=== PATIENT | female | born 1955 | race Caucasian/White ===

== ENCOUNTER 2022-01-04 07:26 | Outpatient (CLI) | payer MEDICARE, SELFPAY ==
--- NOTE | 2022-01-04 09:26 | SUR.PREOP ---
PT TO IMAGING FOR WIRE LOC PER W/C
--- NOTE | 2022-01-04 13:20 | W.ANESCHARGE ---
Anesthesia Charges Start Date/Time Anesthesia Start Date: 01/04/22 Anesthesia Start Time: 08:11 Stop Date/Time Anesthesia Stop Date: 01/04/22 Anesthesia Stop Time: 09:00 Summary Emergency: No
--- NOTE | 2022-01-04 13:26 | W.ANESCHARGE ---
Anesthesia Charges Start Date/Time Anesthesia Start Date: 01/04/22 Anesthesia Start Time: 08:11 Stop Date/Time Anesthesia Stop Date: 01/04/22 Anesthesia Stop Time: 09:00 Summary Emergency: No
== END 2022-01-04 07:27 | disposition home or self-care (01) ==
LOC: OP CLINIC 07:28
PROVIDERS: PCP Family Medicine; Visit Provider Surgery
DX: Z12.11 Encounter for screening for malignant neoplasm of colon (principal); K63.89 Other specified diseases of intestine; Z98.0 Intestinal bypass and anastomosis status; R19.8 Other specified symptoms and signs involving the digestive system and abdomen; K22.89 Other specified disease of esophagus; K31.89 Other diseases of stomach and duodenum
CPT/HCPCS: 43239; 45380; 813; 88305; J2704; J3490

== ENCOUNTER 2022-01-31 07:24 | Inpatient (IN) | payer MEDICARE, SELFPAY ==
[2022-01-31] VITALS (22 sets, daily range): BP systolic 107–152; BP diastolic 52–82; PULSE 84–92; RESP 12–20; TEMP 36.2–36.8; O2SAT 89–100; BMI 31.7
[2022-01-31] MEDS: LACTATED RINGERS 1000 ML 1,000 ML 100 ML IV (07:00)
[2022-01-31] MEDS: ETHYL CHLORIDE 116 ML SPRAY 1 APPLIC TOPICAL (09:26)
[2022-01-31] MEDS: SODIUM CHLORIDE 0.9 % (FLUSH) 10 ML SYRINGE IVF (09:26)
--- NOTE | 2022-01-31 09:31 | PM.IMHP1 ---
Hospitalist- H&P: HPI History of Present Illness Time Seen by Provider: 09:00 Date Seen: 01/31/22 Chief complaint: Open Ileostomy Takedown Narrative: Ree Jiang is a 66 year old female seen for preop evaluation pending ileostomy takedown today. Patient had emergency surgery for diverticulitis with perforation and abscess on 08/14/2021. She was discharged 08/23/2021. She had an sigmoidectomy, appendectomy and loop ileostomy. Surgical findings included perforation of her sigmoid with peritonitis. Postoperatively she had issues with high output ileostomy and associated fluid electrolyte problems. She also had postop hypoxia which resolved. The cause of her hypoxia is uncertain. She did have consultation 2 months ago with a catheterization laboratory technician who diagnosed her with mild COPD and recommended she stop smoking. Spirometry done at that time showed an FVC of 87% of predicted and an FEV1 of 75% of predicted. Her DLCO was 87% of predicted. She reports that she has been well recently. She has had no respiratory illness. She is not using any inhalers for her COPD. She does report that she gets short of breath occasionally when she walks her dog four blocks but she has no chest pain. Review of Systems Narrative: She reports no recent illness. No cold, cough, sore throat, unusual dyspnea, chest pain. She reports she has some mild chronic abdominal tenderness since her surgery. This is unchanged. She has moderately high output from her ileostomy and has to drink lots of fluids to manage this. No change in the appearance of her ileostomy output. [facility] Medical History (Updated 01/31/22 @ 09:42 by Ivan Lawrence MD) Acute respiratory failure with hypoxia Alcohol dependence Chronic obstructive pulmonary disease Depression Diverticulitis of intestine with perforation and abscess Elevated liver function tests Excessive drinking of alcohol History of open sigmoidectomy (08/2021) Hypokalemia Leukocytosis Malignant neoplasm of right breast (04/07/15) Obstructive sleep apnea syndrome (2015) Osteopenia (06/2021) Tobacco dependence syndrome Surgical History History of appendectomy (08/11/21) History of arthroscopy of left knee (2004) History of arthroscopy of right knee (2006) History of bilateral mastectomy (06/2015) History of colonoscopy (08/13/20) History of hysterectomy (1990) Status post laparoscopic cholecystectomy (2016) Status post surgery involving ear Family History Mother Alzheimer's disease Heart disease Father Stroke Heart disease Unknown Crohn's disease Other Cervical cancer Social History Narrative: excessive consumption of ethanol- 6 pack/day exercises 5-6 times per week- garden, walks dog , 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[employer]), 3 kids tobacco abuse- 1 pack/day, 30 years Smoking Status: Current every day smoker What tobacco products do you use: cigarettes Smoking packs per day: 1 Smoking cigarettes per day: 20.0 Years smoked: 20 Smoking pack-years: 20.00 Second hand tobacco smoke exposure: Yes How often do you have a drink containing alcohol: 4 or more times a week How many standard drinks containing alcohol do you have on a typical day: 3 or 4 How often do you have six or more drinks on one occasion: Monthly AUDIT-C Alcohol total score: 7 Non-prescribed substance use: denies use Caffeine: Yes (3/day) service: No Meds Home Medications and Allergies Home Medications Medication Instructions Recorded Confirmed Type amlodipine 10 mg tablet 10 mg PO HS 01/27/22 01/31/22 History citalopram 10 mg tablet 10 mg PO HS 01/27/22 01/31/22 History gabapentin 300 mg capsule 300 mg PO BID 01/27/22 01/31/22 History Allergies Allergy/AdvReac Type Severity Reaction Status Date / Time oxycodone Allergy Severe Anaphylaxis, Verified 01/31/22 07:51 hives, throat swelling amoxicillin Allergy Intermediate N&V Verified 01/31/22 07:51 hydrocodone Allergy Mild Rash Verified 01/31/22 07:51 varenicline Allergy Mild aggression Verified 01/31/22 07:51 clavulanic acid Allergy Unknown Nausea Verified 01/31/22 07:51 Exam Narrative: Exam Narrative: She is alert and appears in no distress. Head is normal. Eyes are normal. Oropharynx with small airway. Otherwise normal. Neck is supple without mass or adenopathy. No stridor. Respirations are clear to auscultation. There is no wheezing, rales, rhonchi. No marked prolongation of expiratory phase. Good air exchange in all lung kraus. Cardiovascular: S1, S2, regular rate and rhythm. No murmur gallop or rub. Abdomen: Bowel sounds active. Abdomen is soft with mild diffuse tenderness. Right lower quadrant ileostomy draining a dark liquid stool. External genitalia normal. Extremities with intact pulses and sensation. She moves all 4 extremities well. No edema. No rash Const: Vital Signs, click to edit/add: Vital Signs - 24 hr 01/31/ 09:01 Temperature 98.2 F Pulse Rate 90 Respiratory Rate 16 Blood Pressure 126/82 Pulse Oximetry 97 Documenting provider has reviewed patient's vital signs: yes Assessment and Plan Assessment and plan (1) Ileostomy present: Status: Acute Assessment and Plan: Proceed to ileostomy takedown today. No further preoperative assessment needed. (2) Chronic obstructive pulmonary disease: Status: Acute Assessment and Plan: Monitor for postoperative exacerbation (3) Tobacco dependence syndrome: Status: Acute Assessment and Plan: Discussed and recommended smoking cessation. (4) Obstructive sleep apnea syndrome: Status: Acute Assessment and Plan: Patient is at risk for postoperative hypoxia with opioid use in the context of probable sleep apnea (5) Excessive drinking of alcohol: Status: Acute Assessment and Plan: Moderately heavy drinking in the context of abnormal liver enzymes. Patient reports no previous history of alcohol withdrawal. Plan Proceed to surgery without further evaluation.
[2022-01-31] MEDS: ERTAPENEM 1 GM inj IVPB (10:30)
[2022-01-31] MEDS: BUPIVACAINE 0.25% 30 ML 20 ML INJECTION (11:46)
[2022-01-31] MEDS: fentaNYL 100 MCG/2 ML inj 50 MCG IVP ×3 (11:59→12:23)
--- NOTE | 2022-01-31 12:05 | W.ANESCHARGE ---
Anesthesia Charges Start Date/Time Anesthesia Start Date: 01/31/22 Anesthesia Start Time: 10:11 Stop Date/Time Anesthesia Stop Date: 01/31/22 Anesthesia Stop Time: 12:00 Summary Emergency: No
--- NOTE | 2022-01-31 12:13 | W.ANESCHARGE ---
Anesthesia Charges Start Date/Time Anesthesia Start Date: 01/31/22 Anesthesia Start Time: 10:11 Stop Date/Time Anesthesia Stop Date: 01/31/22 Anesthesia Stop Time: 12:00 Summary Emergency: No
[2022-01-31] MEDS: HYDROmorphone 0.5 mg/0.5 ml inj IVP ×4 (12:20→22:43)
--- NOTE | 2022-01-31 12:56 | PM.GSPRC ---
Operative Note Date of procedure: 01/31/22 Type of Procedure: Ileostomy takedown Procedure Description: After discussing the risks and benefits of the procedure, the patient signed informed consent.? The operative site was marked and the patient was brought to the operating room and placed on the operating table in supine position.? Care was taken to pad the patient's pressure points.?? The patient was then intubated by anesthesia.?? The operative site was then prepped and draped in the usual sterile fashion.? A time-out was then performed. Prior to prepping, the ileostomy was sutured closed to prevent stool spillage during the procedure. The ileostomy was grasped with a Mely and the mucocutaneous junction was incised using the the cut function on the cautery. The subcutaneous fat was then entered and dissection was taken circumferentially. Using a mosquito, I carefully dissected the subcutaneous fat away from the bowel until both loops of the ileum were encountered. This was actually quite free and only adherent to the fascia laterally. There was another small knuckle of small bowel which had herniated through the stoma trephine. This was normal appearing and reduced. Once the ileum was freely dissected and there was sufficient length extracorporeally to create an anastomosis, I created mesenteric windows on healthy portion of the proximal and distal bowel. I then, using a blue load RUTH ANN stapler divided the stoma from the bowel proximally and distally. The mesentery was then divided using clamps and ties. The specimen was sent to pathology the small bowel ends were then brought together in a stay stitch was placed. Enterotomies were created just in front of the staple line. Each end of a blue load RUTH ANN stapler was then advanced into the enterotomies and a 70 mm anastomosis was then created on the anti mesenteric the stapler was removed and no bleeding was noted on the staple line. The common enterotomy was then closed with interrupted silk sutures in a Lembert fashion. A crotch stitch was placed. The anastomosis appeared widely patent. The mesenteric window was small, however 2 small stitches were placed to ensure that it would close. This was then reduced into the abdomen. A hernia sac which was present at the inferior aspect of the wound was removed with cautery. The fascia was then closed with running 1. PDS. 3-0 Vicryl was used to bury the knot from the stitch in the subcutaneous fat. A 4 0 Monocryl cerclage stitch was then placed around the skin to cinch it down approximately 30%. A wet to dry dressing was then applied. The patient was then woken and transported to the recovery area in stable condition. ? The patient tolerated the procedure well. Findings: Ileostomy with a small parastomal hernia Anesthesia: JOSIAH Surgeon: Geraldine Alberto MD Estimated blood loss (mL): 5 Condition: stable Disposition: PACU
[2022-01-31] MEDS: LACTATED RINGERS 1000 ML 1,000 ML 125 ML IV ×2 (13:11→20:54)
--- NOTE | 2022-01-31 18:40 | PC.NURSE ---
Pt. Alert and oriented, up to floor at 1250. Pt. denied any nausea or vomiting. Pain managed w/.5mg Dilaudid. Pain reported at 1435 and pt. tolerated well. Pt. tolerated ice chips and have been advanced to clear liquid diet per MD. Pt. has restricted extremity to RUE. Pt. on room air- PMH of JONE-PRN O2 ordered if needing support at HS. Pt. dangled, up in chair around 1800 tolerated well. Surgical dressing clean, dry, intact. Ice pack applied.
[2022-01-31] MEDS: CITALOPRAM HYDROBROMIDE 20 MG TABLET 10 MG PO (20:51)
[2022-01-31] MEDS: AMLODIPINE 10 MG TABLET PO (20:52)
[2022-01-31] MEDS: GABAPENTIN 300 MG CAPSULE PO (20:52)
[2022-02-01] VITALS (10 sets, daily range): BP systolic 102–126; BP diastolic 50–80; PULSE 89–96; RESP 16–20; TEMP 36.7–37.2; O2SAT 90–96
[2022-02-01] MEDS: LACTATED RINGERS 1000 ML 1,000 ML 125 ML IV (06:08)
--- NOTE | 2022-02-01 06:22 | PC.NURSE ---
SHIFT NOTE 19-: Pt pleasant and cooperative, A&O. Afebrile, oxygen saturations in the low 90's on room air, IS encouraged. Pt given PRN Dilaudid for pain with pt reporting relief. Active ice to abdomen. Bowel sounds are hypoactive. Denies passing flatus. Surgical dressing is C/D/I. Pt up SBA, tolerating well. Denies N/V, CP, and SOB.
--- NOTE | 2022-02-01 09:01 | PM.GSPN ---
Subjective Subjective Date Seen: 02/01/22 Patient reports: no new complaints, no flatus and no bowel movement Interval history: She is tolerating clears. No nausea. Pain is around the incision site. She states that she has been voiding a large amount of urine. No chest pain or shortness of breath. She would like to eat. Exam Narrative: Exam Narrative: General: No acute distress CV: Regular rate and rhythm Respiratory: Breathing nonlabored on room air Abdomen: Protuberant. Appropriately tender for the postoperative state. Wound without erythema. Const: Vital Signs, click to edit/add: Vital Signs - 24 hr 01/31/22 11:55 01/31/22 12:00 01/31/22 12:01 Temperature 97.6 F Pulse Rate 89 86 86 Pulse Rate [Right] Respiratory Rate 14 16 Blood Pressure 128/73 122/64 Blood Pressure [Le ft Arm] Pulse Oximetry 97 100 01/31/22 12:09 01/31/22 12:15 01/31/22 12:20 Temperature 97.6 F Pulse Rate 89 85 84 Pulse Rate [Right] Respiratory Rate 14 12 12 Blood Pressure 131/79 119/69 126/71 Blood Pressure [Le ft Arm] Pulse Oximetry 96 98 99 01/31/22 12:25 01/31/22 12:30 01/31/22 12:35 Temperature 97.4 F L Pulse Rate 87 86 87 Pulse Rate [Right] Respiratory Rate 12 12 14 Blood Pressure 123/73 110/71 110/73 Blood Pressure [Le ft Arm] Pulse Oximetry 99 99 98 01/31/22 12:40 01/31/22 12:45 01/31/22 13:00 Temperature 97.5 F L 97.3 F L Pulse Rate 86 89 Pulse Rate [Right] 89 Respiratory Rate 16 16 20 Blood Pressure 120/73 121/74 Blood Pressure [Le ft Arm] 126/79 Pulse Oximetry 99 95 89 01/31/22 13:15 01/31/22 13:25 01/31/22 13:30 Temperature 97.1 F L Pulse Rate 92 Pulse Rate [Right] 88 89 Respiratory Rate 20 20 20 Blood Pressure Blood Pressure [Le ft Arm] 115/77 152/81 H 125/74 Pulse Oximetry 89 89 01/31/22 14:15 01/31/22 14:45 01/31/22 15:00 Temperature 97.4 F L Pulse Rate Pulse Rate [Right] 91 91 88 Respiratory Rate 20 20 20 Blood Pressure Blood Pressure [Le ft Arm] 129/73 129/73 107/80 Pulse Oximetry 93 93 93 01/31/22 19:00 01/31/22 19:32 01/31/22 23:00 Temperature 97.8 F 98.1 F Pulse Rate Pulse Rate [Right] 92 92 Respiratory Rate 20 20 18 Blood Pressure Blood Pressure [Le ft Arm] 133/52 L 134/81 Pulse Oximetry 94 94 94 02/01/22 04:00 02/01/22 04:58 02/01/22 07:00 Temperature 98.5 F Pulse Rate 89 Pulse Rate [Right] 90 89 Respiratory Rate 20 20 Blood Pressure Blood Pressure [Le ft Arm] 126/80 Pulse Oximetry 92 02/01/22 08:00 Temperature 99.0 F Pulse Rate Pulse Rate [Right] 89 Respiratory Rate 20 Blood Pressure Blood Pressure [Le ft Arm] 112/68 Pulse Oximetry 91 Progress Note: A&P Assessment and plan (1) Ileostomy present: Status: Acute (2) Chronic obstructive pulmonary disease: Status: Acute (3) Tobacco dependence syndrome: Status: Acute (4) Obstructive sleep apnea syndrome: Status: Acute (5) Excessive drinking of alcohol: Status: Acute Plan Olesya is a 66-year-old female who is postop day 1 status post ileostomy takedown. She is doing well overall. We did advance her diet to full liquid, however I advised her to go slowly as until her bowels are moving normally she will have an ileus which will make her uncomfortable. She is doing well with her breathing and encourage ambulation as well as incentive spirometry. There was minimal blood loss at the time of surgery and therefore I did not recheck a hemoglobin today but we will start Lovenox for DVT prophylaxis. She is not exhibiting any signs or symptoms of alcohol withdrawal at this point. She will continue with inpatient care until she is passing flatus and has a bowel movement. RN to change dressing b.i.d.
[2022-02-01] MEDS: TRAMADOL HCL 50 MG TABLET PO (09:28)
[2022-02-01] MEDS: GABAPENTIN 300 MG CAPSULE PO ×2 (09:28→20:39)
[2022-02-01 09:36] LABS: Basophils Percent Auto 0.4 % (0.0-3.0); Hematocrit 34.6 % (33.0-51.0); Hemoglobin* 11.4 gm/dL (12.0-16.0); Immature Granulocytes Abs Auto 0.04 K/uL (0.00-0.30); Lymphocytes Percent Auto 9.7 % (20-44); Mean Corpuscular HGB Conc 33 gm/dL (32-36); Mean Corpuscular Hemoglobin 33 pg (26-34); Mean Corpuscular Volume 101 fL (80-100); Monocytes Percent Auto 9.2 % (0.0-11.0); Neutrophils Percent Auto 76.4 % (42.0-72.0); Platelet Count* 343 K/uL (140-440); RDW Coefficient of Variation % 13.2 % (11.5-15.5); Red Blood Count 3.42 m/uL (4.00-5.20)
[2022-02-01 09:46] LABS: Slide Review Reflex No
[2022-02-01 10:18] LABS: Chloride* 111 mmol/L (96-114)
[2022-02-01 10:19] LABS: Potassium* 3.9 mmol/L (3.6-5.1); Sodium* 137 mmol/L (135-149)
[2022-02-01 10:21] LABS: Creatinine* 1.4 mg/dL (0.5-1.5); Est. Creatinine Clearance* 28.01; Estimated Glomerular Filt Rate 41 ml/min
[2022-02-01 10:22] LABS: Blood Urea Nitrogen* 25 mg/dL (7-30); Calcium* 8.7 mg/dL (8.4-10.6); Carbon Dioxide* 21 mmol/L (20-32); Glucose* 112 mg/dL (60-115)
--- NOTE | 2022-02-01 13:36 | PM.IMPN1 ---
Progress Note: A&P Assessment and plan (1) Ileostomy present: Status: Acute Assessment and Plan: ?66-year-old female who is postop day 1 status post ileostomy takedown -pain control, diet, dvt ppx per surgery (2) Chronic obstructive pulmonary disease: Status: Acute (3) Tobacco dependence syndrome: Status: Acute (4) Obstructive sleep apnea syndrome: Status: Acute (5) Excessive drinking of alcohol: Status: Acute Subjective Date Seen: 02/01/22 Interval history: ?66-year-old female who is postop day 1 status post ileostomy takedown tolerating diet Denies chest pain denies nausea Denies vomiting Exam Narrative: Exam Narrative: Gen: no acute distress HEENT:NCAT EOMI MMM CV: RRR normal s1 s2 Lungs: CTAB Abd: soft, nt, nd Neuro: Alert, oriented Const: Vital Signs, click to edit/add: Vital Signs - 24 hr 01/31/22 14:15 01/31/22 14:45 01/31/22 15:00 Temperature 97.4 F L Pulse Rate Pulse Rate [Right] 91 91 88 Respiratory Rate 20 20 20 Blood Pressure [Le ft Arm] 129/73 129/73 107/80 Pulse Oximetry 93 93 93 01/31/22 19:00 01/31/22 19:32 01/31/22 23:00 Temperature 97.8 F 98.1 F Pulse Rate Pulse Rate [Right] 92 92 Respiratory Rate 20 20 18 Blood Pressure [Le ft Arm] 133/52 L 134/81 Pulse Oximetry 94 94 94 02/01/22 04:00 02/01/22 04:58 02/01/22 07:00 Temperature 98.5 F Pulse Rate 89 92 Pulse Rate [Right] 90 89 Respiratory Rate 20 20 Blood Pressure [Le ft Arm] 126/80 Pulse Oximetry 92 02/01/22 08:00 Temperature 99.0 F Pulse Rate Pulse Rate [Right] 89 Respiratory Rate 20 Blood Pressure [Le ft Arm] 112/68 Pulse Oximetry 91 Labs Labs: Laboratory Results - last 24 hr 02/01/22 02/01/22 09:17 09:17 WBC 12.60 H RBC 3.42 L Hgb 11.4 L Hct 34.6 MCV 101 H MCH 33 MCHC 33 RDW Coeff of Igor 13.2 Plt Count 343 Neut % (Auto) 76.4 H Lymph % (Auto) 9.7 L Alfalfa % (Auto) 9.2 Eos % (Auto) 4.0 Baso % (Auto) 0.4 Neut # (Auto) 9.60 H Lymph # (Auto) 1.20 Alfalfa # (Auto) 1.20 H Eos # (Auto) 0.50 Baso # (Auto) 0.10 Abs Immat Gran (auto) 0.04 Sodium 137 Potassium 3.9 Chloride 111 Carbon Dioxide 21 BUN 25 Creatinine 1.4 Estimated Creat Clear 28.01 Estimated GFR 41 Glucose 112 Calcium 8.7
--- NOTE | 2022-02-01 16:20 | PC.NURSE ---
Pt pleasant and cooperative. Alert and oriented x3. Afebrile, oxygen saturations in the low 90's on room air, IS encouraged. Pt.denies any N/V. Pt. reported no pain, states the pain is tolerable. Bowel sounds are active. Denies passing flatus. Surgical dressing changed wet to dry Kerlix and ABD at 0950. Surgical dressing is C/D/I. Pt. up SBA, tolerating well. Saline locked at 1000. Pt. advanced to liquid diet.
[2022-02-01] MEDS: CITALOPRAM HYDROBROMIDE 20 MG TABLET 10 MG PO (20:38)
[2022-02-01] MEDS: AMLODIPINE 10 MG TABLET PO (20:38)
[2022-02-01] MEDS: ENOXAPARIN 40 MG/0.4 ML INJ SUBCUT (20:39)
[2022-02-02] VITALS (8 sets, daily range): BP systolic 108–121; BP diastolic 64–79; PULSE 87–101; RESP 16–20; TEMP 36.2–37.2; O2SAT 92–98
[2022-02-02] MEDS: TRAMADOL HCL 50 MG TABLET PO ×2 (01:33→15:13)
--- NOTE | 2022-02-02 06:36 | PC.NURSE ---
Alert and oriented x4. Vitals stable. On rooom air. On tele ; normal sinus rhythm. Surgical pain and cramps managed with tramadol with good results. Wound cares done as per orders. No signs of infection noted. Denies concerns overnight
[2022-02-02] MEDS: GABAPENTIN 300 MG CAPSULE PO ×2 (10:00→21:00)
--- NOTE | 2022-02-02 13:10 | PM.GSPN ---
Subjective Subjective Date Seen: 02/02/22 Interval history: Olesya Is doing well today. She states she is passing flatus from below, however she does feel somewhat distended. She denies nausea. She would like to advance her diet. No chest pain or shortness of breath. No fevers. Exam Narrative: Exam Narrative: General: No acute distress CV: Regular rate and rhythm respiratory: Clear to auscultation bilaterally abdomen: Wound without erythema. Abdomen is somewhat distended but soft and minimally tender. Const: Vital Signs, click to edit/add: Vital Signs - 24 hr 02/01/22 15:00 02/01/22 16:00 02/01/22 20:00 Temperature 98.6 F 98.9 F Pulse Rate 89 Pulse Rate [Left] 96 Pulse Rate [Right] 90 90 96 Respiratory Rate 20 20 16 Blood Pressure [Le ft Arm] 102/50 L 111/76 Pulse Oximetry 91 90 02/01/22 22:49 02/01/22 23:35 02/02/22 04:00 Temperature 98.9 F 98.9 F Pulse Rate 89 Pulse Rate [Left] 94 92 96 Pulse Rate [Right] 94 92 96 Respiratory Rate 16 16 16 Blood Pressure [Le ft Arm] 118/75 112/74 Pulse Oximetry 90 92 02/02/22 07:00 02/02/22 08:00 Temperature 98.1 F Pulse Rate 94 Pulse Rate [Left] 90 Pulse Rate [Right] Respiratory Rate 16 Blood Pressure [Le ft Arm] 108/64 Pulse Oximetry 98 Progress Note: A&P Assessment and plan (1) Ileostomy present: Status: Acute (2) Chronic obstructive pulmonary disease: Status: Acute (3) Tobacco dependence syndrome: Status: Acute (4) Obstructive sleep apnea syndrome: Status: Acute (5) Excessive drinking of alcohol: Status: Acute Plan The patient is a 66-year-old female postop day 2 status post ileostomy takedown. She has some flatus, however is somewhat distended today and therefore I recommend she go slow with diet advancement. She is otherwise doing well and will remain inpatient until she is having full return of bowel function. Continue Lovenox for DVT prophylaxis. Appreciate hospitalist consult
--- NOTE | 2022-02-02 15:56 | PM.IMPN1 ---
Progress Note: A&P Assessment and plan (1) Chronic obstructive pulmonary disease: Status: Acute Plan 1) Ileostomy present: ?Status:?Acute ?Assessment and Plan: ?66-year-old female who is postop day status post ileostomy takedown -pain control, diet, dvt ppx per surgery (2) Chronic obstructive pulmonary disease: ?Status:?Acute (3) Tobacco dependence syndrome: ?Status:?Acute (4) Obstructive sleep apnea syndrome: ?Status:?Acute (5) Excessive drinking of alcohol: ?Status:?Acute Time Spent With Patient Total time spent: 15 Subjective Date Seen: 02/03/22 Interval history: tolerating diet post surgical pain controlled denies cp, nausea, vomiting; passing gas Exam Narrative: Exam Narrative: Gen: NAD HEENT: NCAT EOMI MMM CV: RRR normal s1 s2 lungs: CTAB Abd: Soft, nt,nd Const: Vital Signs, click to edit/add: Vital Signs - 24 hr 02/01/22 16:00 02/01/22 20:00 02/01/22 22:49 Temperature 98.6 F 98.9 F Pulse Rate 89 Pulse Rate [Left] 96 94 Pulse Rate [Right] 90 96 94 Respiratory Rate 20 16 16 Blood Pressure [Le ft Arm] 102/50 L 111/76 Pulse Oximetry 91 90 02/01/22 23:35 02/02/22 04:00 02/02/22 07:00 Temperature 98.9 F 98.9 F Pulse Rate 94 Pulse Rate [Left] 92 96 Pulse Rate [Right] 92 96 Respiratory Rate 16 16 Blood Pressure [Le ft Arm] 118/75 112/74 Pulse Oximetry 90 92 02/02/22 08:00 02/02/22 12:00 Temperature 98.1 F 98.1 F Pulse Rate Pulse Rate [Left] 90 96 Pulse Rate [Right] Respiratory Rate 16 20 Blood Pressure [Le ft Arm] 108/64 121/79 Pulse Oximetry 98 96 Labs Labs: Laboratory Results - last 24 hr 01/31/22 11:05 Surg PTH (Off-Site) See Scanned Report
--- NOTE | 2022-02-02 18:56 | PC.NURSE ---
shift [id number] pt this shift vitally stable. Dressing change performed, pt tolerated well. tissue pink, moist, and vascular. Moderate amount of serous fluid on old dressing. no signs of infection present. Pt encouraged to walk frequently to encourage BM and passage of gas.
[2022-02-02] MEDS: ENOXAPARIN 40 MG/0.4 ML INJ SUBCUT (20:59)
[2022-02-02] MEDS: CITALOPRAM HYDROBROMIDE 20 MG TABLET 10 MG PO (21:00)
[2022-02-02] MEDS: AMLODIPINE 10 MG TABLET PO (21:00)
--- NOTE | 2022-02-02 22:02 | PC.NURSE ---
VSS RA. Tele NSR. Denies pain. W-D Dressing change done 1cm or so tunneling at 2 and 5. Slight bloody drainage on old dressing. Bowel tones active, passing flatus, tolerating diet. Up ad elaine ind w/cares.
[2022-02-03] VITALS (8 sets, daily range): BP systolic 110–127; BP diastolic 78–86; PULSE 85–93; RESP 16–20; TEMP 36.6–37.1; O2SAT 93–95
--- NOTE | 2022-02-03 06:04 | PC.NURSE ---
23-07: Pleasant and cooperative. Calls appropriately. No c/o pain or nausea. Bowel sounds active, pt states she is still passing gas. VS WNL. LS clear. Tele = NSR. Dressing to abdomen CDI.
[2022-02-03] MEDS: GABAPENTIN 300 MG CAPSULE PO ×2 (08:23→20:28)
--- NOTE | 2022-02-03 10:01 | P.GSPN_ITS ---
Subjective Subjective Date Seen: 02/03/22 Interval history: Olesya is doing well today. No chest pain, no shortness of breath. No nausea or vomiting. She is passing flatus but has not had a bowel movement. She does feel that her abdomen is distended. She has been walking around the unit. She would like to shower today. Exam Const: Vital Signs, click to edit/add: Vital Signs - 24 hr 02/02/22 12:00 02/02/22 16:00 02/02/22 18:53 Temperature 98.1 F 98.5 F Pulse Rate 101 H Pulse Rate [Left] 96 89 Respiratory Rate 20 18 Blood Pressure [Le ft Arm] 121/79 121/77 Pulse Oximetry 96 93 02/02/22 20:00 02/02/22 23:00 02/03/22 03:00 Temperature 98.3 F 97.1 F L 97.8 F Pulse Rate 88 Pulse Rate [Left] 94 87 90 Respiratory Rate 16 16 16 Blood Pressure [Le ft Arm] 110/71 114/73 110/78 Pulse Oximetry 92 93 93 Documenting provider has reviewed patient's vital signs: yes Common dashawn ls: no apparent distress and oriented x3 Resp: Common normals: clear to auscultation bilaterally Auscultation: clear to auscultation bilaterally Cardio: Common normals: regular rate and regular rhythm Rate: regular rate Rhythm: regular rhythm GI: Other: Abdomen is distended. Minimally tender to palpation. Incision without eryt akua. Neuro: Common normals: oriented x3 Progress Note: A&P Assessment and plan (1) Chronic obstructive pulmonary disease: Status: Acute (2) Obstructive sleep apnea syndrome: Status: Acute (3) S/P small bowel resection: Status: Acute Plan Olesya is a 66-year-old female who is postop day 3 from ileostomy takedown. She is doing well overall but needs full return of bowel function as she is somewhat distended today as well as yesterday. I encouraged her to back off on her p.o. intake because at some point she may begin to feel nauseated. I encouraged her that usually bowel function starts returned on postop day 3. She does have some slight bowel sounds on the right. She is going to continue to ambulate. She will continue with b.i.d. dressing changes. She may shower. She is on Lovenox for DVT prophylaxis.
--- NOTE | 2022-02-03 13:34 | PC.NURSE ---
Pt up in halls and denies pain or nausea. Pt has BS x4 and passing gas, no BM since surgery. Dressing changed without pain medication and pt reports it is tolerable. Pt would be able to shower and then have dressing changed, do not spray water directly into wound.
--- NOTE | 2022-02-03 16:09 | PM.IMPN1 ---
Progress Note: A&P Assessment and plan (1) S/P small bowel resection: Status: Acute Assessment and Plan: Status post ileostomy takedown with small-bowel resection. Patient is doing great. We are waiting full return of her bowel function. Dr. Alberto is leading the care team. (2) H/O ileostomy: Problem details: Operative Note Date of procedure: 01/31/22 Type of Procedure: Ileostomy takedown Status: Acute (3) Chronic obstructive pulmonary disease: Status: Acute Assessment and Plan: Stable. (4) Obstructive sleep apnea syndrome: Status: Acute Assessment and Plan: Stable. Plan Generally speaking hospital medicine is happy to follow along. There is no new needs or increasing demand of our services. I suspect she will discharge tomorrow once she has a bowel Subjective Date Seen: 02/03/22 Interval history: Daily Progress Note - Hospital Medicine Day #: 4 Postop day #3 - ileostomy takedown CC: Improving every day. Still waiting for BM. OVERNIGHT UPDATES FROM STAFF & MED, LAB, IMAGING UPDATES Eunice continues to improve every day. She is eating a normal diet. She is passing flatus. She has yet to have a bowel movement. Review of Systems: See subjective Cardiac: No new chest pain/pressure/palpitations. Respiratory: no new dyspnea. GI: Minimal abdominal bloating and pain Objective: Vitals: see above Lungs: Clear. Cardiac: S1S2. Abdomen surgical wound is dry. Good bowel sounds. Disposition/Potential discharge - Likely to return to previous living situation. Total time is 25 minutes with greater than 50% spent in counseling and coordination of care. Exam Const: Vital Signs, click to edit/add: Vital Signs - 24 hr 02/02/22 18:53 02/02/22 20:00 02/02/22 23:00 Temperature 98.3 F 97.1 F L Pulse Rate 101 H 88 Pulse Rate [Left] 94 87 Pulse Rate [Right] Respiratory Rate 16 16 Blood Pressure [Le ft Arm] 110/71 114/73 Pulse Oximetry 92 93 02/03/22 03:00 02/03/22 10:30 02/03/22 10:33 Temperature 97.8 F 98.2 F Pulse Rate Pulse Rate [Left] 90 86 86 Pulse Rate [Right] 93 Respiratory Rate 16 18 18 Blood Pressure [Le ft Arm] 110/78 126/78 Pulse Oximetry 93 93 02/03/22 11:27 02/03/22 13:32 02/03/22 15:00 Temperature 98.0 F 98.0 F Pulse Rate 88 Pulse Rate [Left] 85 93 Pulse Rate [Right] 93 93 Respiratory Rate 16 18 Blood Pressure [Le ft Arm] 126/86 127/80 Pulse Oximetry 95 95
--- NOTE | 2022-02-03 19:28 | PC.NURSE ---
Shift Note: Pt up ambulating independently. Showered this evening and wet to dry dressing changed. Pt declined pain meds, rates pain 0-1/10. Tolerating regular diet, verbalizes flatus but no BM.
[2022-02-03] MEDS: ENOXAPARIN 40 MG/0.4 ML INJ SUBCUT (20:26)
[2022-02-03] MEDS: CITALOPRAM HYDROBROMIDE 20 MG TABLET 10 MG PO (20:27)
[2022-02-03] MEDS: AMLODIPINE 10 MG TABLET PO (20:28)
[2022-02-04 03:00] VITALS: BP 117/77; PULSE 90; RESP 20; TEMP 36.6; O2SAT 94
[2022-02-04] MEDS: TRAMADOL HCL 50 MG TABLET PO (05:40)
--- NOTE | 2022-02-04 06:21 | PC.NURSE ---
-: pt pleasant and cooperative. Indep in room and halls. Tolerating reg diet. 1x loose bloody/mucous stool.?Pt continuing to pass flatus frequently. At 0530 pt stated she was having occasional sharp pain in her abd, 5/10, Ultram given. Dressing to abd CDI. VS stable and WNL.
[2022-02-04 07:00] VITALS: BP 119/75; PULSE 90; RESP 16; TEMP 36.9; O2SAT 94
[2022-02-04] MEDS: GABAPENTIN 300 MG CAPSULE PO (09:34)
[2022-02-04 11:00] VITALS: BP 130/83; PULSE 87; RESP 24; TEMP 36.7; O2SAT 98
[2022-02-04] MEDS: ACETAMINOPHEN 325 MG TABLET 650 MG PO (11:09)
[2022-02-04 15:00] VITALS: BP 123/81; PULSE 85; TEMP 37; O2SAT 97
--- NOTE | 2022-02-04 15:11 | PM.DS1 ---
DS: Providers Provider Date Seen: 02/04/22 Date of admission: 01/31/22 07:24 Primary care physician: Conner Bautista MD Admitting Clinician: Geraldine Alberto MD Consults: Hospitalist Attending Physician on discharge: Geraldine Alberto MD DS: Diagnosis Discharge Diagnosis (1) S/P small bowel resection: Status: Acute (2) H/O ileostomy: Status: Acute Problem details: Operative Note Date of procedure: 01/31/22 Type of Procedure: Ileostomy takedown (3) Chronic obstructive pulmonary disease: Status: Acute (4) Obstructive sleep apnea syndrome: Status: Acute DS: Summary Hospital Course Hospital Course: Olesya is a 66-year-old female who underwent ileostomy takedown on 01/31/2022. Overall she did very well. She was deemed safe for discharge home on postop day 4 when she had full return of bowel function and was tolerating a regular diet. Time Spent with Patient Time attestation: Total time spent providing and/or coordinating discharge services: Time spent: Less than 30 minutes Exam Narrative: Exam Narrative: General: No acute distress CV: Regular rate and rhythm Respiratory: Clear to auscultation bilaterally Abdomen: Mildly distended but soft. Wound without erythema. Const: Vital Signs, click to edit/add: Vital Signs - 24 hr 02/03/22 19:00 02/03/22 23:00 02/04/22 03:00 Temperature 98.8 F 97.8 F 98 F Pulse Rate [Left] 92 87 90 Pulse Rate [Right] 93 Respiratory Rate 18 20 20 Blood Pressure [Le ft Arm] 119/78 120/85 117/77 Pulse Oximetry 95 94 94 02/04/22 07:00 02/04/22 11:00 Temperature 98.4 F 98.1 F Pulse Rate [Left] 90 87 Pulse Rate [Right] Respiratory Rate 16 24 Blood Pressure [Le ft Arm] 119/75 130/83 Pulse Oximetry 94 98 Discharge Plan Discharge Disposition: Home, Self-Care Date of Admission: 01/31/22 07:24 Primary Care Provider: Conner Bautista Condition: Stable Anticipated Discharge Date/Time: 02/04/22 14:00 Discharge Medications: New tramadol 50 mg Tablet 50 - 100 mg PO Q6H PRN (Reason: Pain) Qty: 7 0RF Continued citalopram 10 mg tablet 10 mg PO HS 0RF amlodipine 10 mg tablet 10 mg PO HS 0RF gabapentin 300 mg capsule 300 mg PO BID 0RF Discharge Orders: Discharge Order (Routine); Ordered 02/04/22 Ordered By: Geraldine Alberto Patient Education: Acute Wounds (GEN) Activity Restrictions/Additional Instructions: Change dressing daily with saline soaked gauze. Cover with a pad and tape to catch any drainage. OK to shower but avoid bathing, soaking or swimming until your wound is totally healed. Apply ice to the area as needed for swelling. It is also OK to use a heating pad if this provides more comfort to you. Pain control: You were prescribed a pain medication. As your pain improves, you can try taking acetaminophen instead of the prescribed pain pill. Take an [id number] stool softener while you are taking prescribed pain medications to help alleviate constipation. I recommend Senna and/or Colace. Take as directed on package. If you have not had a bowel movement in 3 days, try taking Miralax as directed on the package. All of these are available over the counter. Follow-up Follow up with Dr. Alberto in 2-3 weeks Please call if you are experiencing severe pain, nausea, vomiting, difficulty urinating, fever or have not had bowel movement in 4 days after surgery. Activity Level: No strenuous activity Activity Detail: No lifting more than 20 lb for 4 weeks from surgery. Discharge Diet: Regular Follow Up Appointments: Geraldine Alberto MD [Staff Physician] - Conner Bautista MD [Primary Care Provider] - Forms: [employer] Info Instructions
--- NOTE | 2022-02-04 16:45 | PC.NURSE ---
shift [id number] pt comfortable and cooperative. Ambulated halls independently. Able to pass 2 small stools, soft and bloody, 1 medium bloody stool, and 1 small stool no blood. Pt watched wound dressing change, taught clean technique and signs and symptoms of infection. Pt verbalized understanding and feels comfortable taking over dressing change at home. DC'd at 1600, discharge instructions given, questions answered. IV dc'd prior to discharge.
== END 2022-02-04 16:57 | disposition home or self-care (01) | DRG 331 ==
PROVIDERS: Hospitalist; Admitting Provider Surgery; PCP Family Medicine; Visit Provider Surgery
PROC: 0DBE0ZZ Excision of Large Intestine, Open Approach (ICD-10-PCS; CPT 44620; principal; 2022-01-31 08:50)
DX: Z43.2 Encounter for attention to ileostomy (principal); R09.02 Hypoxemia; J44.9 Chronic obstructive pulmonary disease, unspecified; F17.210 Nicotine dependence, cigarettes, uncomplicated; Z85.3 Personal history of malignant neoplasm of breast; G47.33 Obstructive sleep apnea (adult) (pediatric); F10.20 Alcohol dependence, uncomplicated
CPT/HCPCS: 00800; 00840; 36415; 80048; 85025; 88304; 94761; G0378; A9270; J1170; J1335; J1650; J2250; J2704; J3010; J3490; J7120

== ENCOUNTER 2022-02-23 13:21 | Outpatient (CLI) | payer MEDICARE, SELFPAY ==
[2022-02-23 11:21] LABS: C.Difficile Negative (Negative); CDIFFEPI 027 PRESUMPTIVE NEGATIVE (Negative)
== END 2022-02-23 13:22 | disposition home or self-care (01) ==
PROVIDERS: PCP Family Medicine; Visit Provider Surgery
DX: R19.7 Diarrhea, unspecified (principal)
CPT/HCPCS: 87045; 87046; 87427; 87493

== ENCOUNTER 2022-07-22 10:01 | Outpatient (RCR) | payer MEDICARE, SELFPAY | END 2023-01-18 23:59 | disposition home or self-care (01) | LOC: CCIC 10:01 | PROVIDERS: PCP Family Medicine; Visit Provider Nurse Practitioner Family | DX: C50.911 Malignant neoplasm of unspecified site of right female breast (principal); Z17.0 Estrogen receptor positive status [ER+] | CPT/HCPCS: 99212; 99214 ==

== ENCOUNTER 2022-08-22 06:28 | Day surgery (SDC) | payer MEDICARE, SELFPAY ==
[2022-08-22 06:41] VITALS: BP 153/95; PULSE 89; RESP 20; TEMP 36.6; O2SAT 97; BMI 32.1
--- NOTE | 2022-08-22 06:43 | SUR.PREOP ---
SAME DAY SURGERY LOCAL INJECTION SITE VERIFICATION WAS PERFORMED BY SURGEON/PA AND PATIENT PRIOR TO LOCAL ANESTHETIC BEING INJECTED TO OPERATIVE SITE.
[2022-08-22] MEDS: ETHYL CHLORIDE 1 APPLICATION 1 APPLIC TOPICAL (06:55)
[2022-08-22] MEDS: BUPIVACAINE 0.5% 30 ML INJECTION (06:55)
[2022-08-22 07:19] VITALS: BP 154/82; PULSE 82; RESP 16; O2SAT 99
[2022-08-22 07:25] VITALS: BP 151/82; PULSE 79; RESP 16; O2SAT 98
[2022-08-22 07:30] VITALS: BP 138/76; PULSE 76; RESP 14; O2SAT 99
[2022-08-22 07:35] VITALS: BP 140/81; PULSE 73; RESP 12
--- NOTE | 2022-08-22 07:35 | P.ORPRC_ITS ---
Procedure Note Date of procedure: 08/22/22 Procedure: PREOPERATIVE DIAGNOSIS: 1. Left ring finger flexor tenosynovitis - trigger finger POSTOPERATIVE DIAGNOSIS: 1. Left ring finger flexor tenosynovitis - trigger finger PROCEDURE: 1. Left ring finger flexor tendon sheath open release (A1 shelbie) SURGEON: Yuri Mendoza MD. HOME APPLIANCE INSTALLER: YVON Moreno ANESTHESIA: Local anesthetic 6ml via 50:50 mixture of 1% Lidocaine with epi and 0.5% marcaine plain EBL: 2ml IMPLANTS: None TOURNIQUET: None COMPLICATIONS: None evident INDICATIONS: The patient is a pleasant 66-year-old female who has experienced left ring finger catching/triggering for number of months. It has progressively gotten worse. Given the failure of nonoperative management, and how this affects daily life, surgery was recommended. DESCRIPTION OF PROCEDURE: Following a thorough discussion of risks, benefits, and alternatives consent was obtained and the operative digit(s) was marked. The patient was brought to the operating room and placed supine on the operating table. Local anesthesia induction was undertaken in preop holding. No antibiotics were administered as this was planned to be a local case only. Proper time-out was performed identifying proper patient, site, and procedure. The operative extremity was prepped and draped in the appropriate sterile fashion using ChloraPrep. A incision was made on the palmar surface of the hand overlying the MCP joint region of the appropriate digit(s) respecting the palmar creases being cautious not to cross these perpendicularly. Sharp incision through the skin, and blunt dissection through subcutaneous tissue allowing protection of crossing neurologic structures. The A1 shelbie was visualized directly. It was incised sharply with a 15 blade. It was released completely from its distal to proximal extent under direct visualization. The tendon was inspected and found to be mildly striated consistent with some friction. Otherwise, it was intact. The tendon was removed out of the wound, and further inspected. The patient was asked to manually flex and extend the digits and showed no further catching. The catching which was visualized after tourniquet inflation, was no longer evident with reproduction of a manual fist and relaxation. Closure was performed with 4-O nylon in interrupted fashion. Soft dressings were applied, and the patient was transferred to the recovery room in stable condition. PLAN: 1. Encourage elevation of the operative extremity. 2. Range of motion and icing of the fingers and hand/wrist as tolerated/needed. 3. Ibuprofen/acetaminophen and/or tramadol as needed for pain control. 4. Follow up with PA visit in 12-16 days for wound check and suture removal.
[2022-08-22 07:43] VITALS: BP 134/85; PULSE 84; RESP 16; TEMP 36.8; O2SAT 96
== END 2022-08-22 07:57 | disposition home or self-care (01) ==
LOC: OR 06:30
PROVIDERS: PCP Family Medicine; Visit Provider Orthopaedic Surgery Sports Medicine
PROC: (CPT 26055; principal; 2022-08-22 07:30)
DX: M65.342 Trigger finger, left ring finger (principal); M65.842 Other synovitis and tenosynovitis, left hand
CPT/HCPCS: 26055; J3490

== ENCOUNTER 2022-12-21 11:57 | Outpatient (CLI) | payer MEDICARE, SELFPAY ==
--- NOTE | 2022-12-21 13:00 | CRLHL7_ITS ---
For Patients: As a result of the Century Cures Act, medical imaging exams and procedure reports are released immediately into your electronic medical record. You may view this report before your referring provider. If you have questions, please contact your health care provider. INDICATION: Checking her ventral hernia. TECHNIQUE: CT abdomen and pelvis acquired with 83 cc Isovue 370 IV contrast. COMPARISON: October 19, 2021. FINDINGS: Lower chest: Scattered atelectasis. Liver: Mild hepatic steatosis. No suspicious masses. Gallbladder and bile ducts: Cholecystectomy with reservoir effect. Pancreas: Unremarkable. No mass or inflammation. Spleen: Unremarkable. Normal in size. No masses. Adrenal glands: Tiny right adrenal nodule Kidneys: Unremarkable. No suspicious masses, stones, or hydronephrosis. GI tract: Postsurgical changes of partial colectomy. No bowel obstruction. Appendix not definitely seen. Vasculature: Abdominal aorta is normal in caliber. Mesenteric arteries are patent. Lymph nodes: No lymphadenopathy. Peritoneum/Abdominal Wall: Moderate fat containing umbilical hernia. Additional small fat containing supraumbilical hernia. Prior right ileostomy abdominal scar. No sign of mass or infiltration. No free air or significant free fluid. Pelvis: Hysterectomy. Bones: Unremarkable for age. IMPRESSION: Moderate fat containing umbilical hernia. Additional small fat containing supraumbilical hernia. No bowel containing hernia or bowel obstruction. Otherwise, no acute intra-abdominal/pelvic abnormality. Please note that all CT scans at this facility use dose modulation, iterative reconstruction, and/or weight-based dosing when appropriate to reduce radiation dose to as low as reasonably achievable. Dictated by David Kaur MD @ 12/21/2022 2:16:16 PM (Electronically Signed)
== END 2022-12-21 11:58 | disposition home or self-care (01) ==
LOC: CT 11:57
PROVIDERS: PCP Family Medicine; Visit Provider Family Medicine
DX: K43.9 Ventral hernia without obstruction or gangrene (principal); R10.9 Unspecified abdominal pain
CPT/HCPCS: 74177; 80053; Q9967

== ENCOUNTER 2023-01-11 15:05 | Emergency (ER) | payer MEDICARE, SELFPAY ==
[2023-01-11] VITALS (21 sets, daily range): BP systolic 147–163; BP diastolic 91–110; PULSE 77–97; RESP 22; TEMP 36.6; O2SAT 91–96; BMI 32.7
--- NOTE | 2023-01-11 16:06 | CRLHL7_ITS ---
For Patients: As a result of the Cures Act, medical imaging exams and procedure reports are released immediately into your electronic medical record. You may view this report before your referring provider. If you have questions, please contact your health care provider. INDICATION: Abdominal pain. TECHNIQUE: CT abdomen and pelvis acquired with 83 cc Isovue 370 IV contrast. COMPARISON: 12/21/2022. FINDINGS: Lower chest: Unremarkable. Liver: Mild hepatic steatosis. Subcentimeter hypodense focus in the medial left hepatic lobe is too small to accurately characterize but unchanged and likely benign. Gallbladder and bile ducts: Mildly prominent bile ducts, likely secondary to post cholecystectomy state. Spleen: Unremarkable. Normal in size. No masses. Adrenal glands: Stable right adrenal nodule. Left adrenal gland is unremarkable. Pancreas: Unremarkable. No mass or inflammation. Kidneys: Unremarkable. No suspicious masses, stones, or hydronephrosis. GI tract: Postsurgical changes of partial colectomy. No evidence of bowel obstruction. Appendix not visualized. Lymph nodes: No lymphadenopathy. Vasculature: Scattered atherosclerotic calcifications. Omentum/Peritoneum/Abdominal Wall: Fat containing paraumbilical and supraumbilical hernias, unchanged. No free air or significant free fluid. Pelvis: Status post hysterectomy. Bones: Unremarkable for age. IMPRESSION: No acute abdominal or pelvic abnormalities. No significant interval change since prior study. Please note that all CT scans at this facility use dose modulation, iterative reconstruction, and/or weight-based dosing when appropriate to reduce radiation dose to as low as reasonably achievable. Dictated by Yrn Avila MD @ 01/11/2023 6:24:38 PM (Electronically Signed)
--- NOTE | 2023-01-11 16:08 | ED_ITS ---
HPI - Abdominal Pain General Chief Complaint: Abdominal Pain Stated Complaint: Abdominal pain Time Seen by Provider: 01/11/23 15:52 History of Present Illness HPI narrative: This 67-year-old female comes in with upper epigastric and right-sided abdominal pain. She states that she has had pain for several months but it has worsened recently. She reports some nausea but no vomiting or diarrhea. She states that she feels bloated. She rates her pain at 5/10 in severity currently. She states that she typically begins to sleep at night by laying on her right side but is unable to do so because of pain. She has had an ileostomy in the past with a take down and now has a umbilical hernia. Related Data Previous Rx's Medication Instructions Recorded gabapentin 300 mg capsule 300 mg PO TID #90 caps 06/13/22 citalopram 10 mg tablet 10 mg PO QHS #90 tabs 07/12/22 amlodipine 10 mg tablet 10 mg PO HS #90 tabs 10/12/22 methylprednisolone 4 mg tablets in See Rx Instructions PO .COMPLEX 01/11/23 a dose pack (Medrol (Derrell)) #21 ea Allergies Allergy/AdvReac Type Severity Reaction Status Date / Time oxycodone Allergy Severe Anaphylaxis, Verified 01/11/23 17:35 hives, throat swelling amoxicillin Allergy Intermediate N&V Verified 01/11/23 17:35 hydrocodone Allergy Mild Rash Verified 01/11/23 17:35 varenicline Allergy Mild aggression Verified 01/11/23 17:35 clavulanic acid Allergy Unknown Nausea Verified 01/11/23 17:35 tramadol AdvReac severe Verified 01/11/23 17:35 itching Review of Systems Status of ROS Reports: 10 or more systems reviewed and unremarkable except as noted in History and below Narrative Constitutional: No fevers, no weight gain or loss. Eyes: No discharge. No vision changes. HENT: No congestion, no sore throat, no ear pain. Cardiovascular: No chest pain, no palpitations. Respiratory: No shortness of breath, no wheezes, no cough. Gastrointestinal: Abdominal pain. Nausea but no vomiting or diarrhea. Genitourinary: No dysuria, no hematuria. Musculoskeletal: Normal range of motion. Skin: No rashes, no pruritis. Neurological: No dizziness, weakness, sensory change, speech change. Endo/Heme/Allergies: No bruising or bleeding. No polydipsia. Pysch: no suicidality, no anxiety, no insomnia. All other systems reviewed and are negative. 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 - Monoarthritis, not elsewhere classified, unspecified site (ICD-10) Peripheral neuropathy ?G62.9 - Polyneuropathy, unspecified (ICD-10) Excessive drinking of alcohol ?F10.10 - Alcohol abuse, uncomplicated (ICD-10) Tobacco dependence syndrome ?F17.200 - Nicotine dependence, unspecified, uncomplicated (ICD-10) Osteopenia (06/2021) ?M85.80 - Other specified disorders of bone density and structure, unspecified site (ICD-10) Obstructive sleep apnea syndrome (2016) ?G47.33 - Obstructive sleep apnea (adult) (pediatric) (ICD-10) Malignant neoplasm of right breast (04/07/15) ?C50.911 - Malignant neoplasm of unspecified site of right female breast (ICD-10) Leukocytosis ?D72.829 - Elevated white blood cell count, unspecified (ICD-10) Ileostomy present (08/2021) ?Z93.2 - Ileostomy status (ICD-10) Hypokalemia ?E87.6 - Hypokalemia (ICD-10) History of open sigmoidectomy (08/2021) ?Z98.890 - Other specified postprocedural states (ICD-10) ?Z90.49 - Acquired absence of other specified parts of digestive tract (ICD- 10) Elevated liver function tests ?R79.89 - Other specified abnormal findings of blood chemistry (ICD-10) Diverticulitis of intestine with perforation and abscess ?K57.80 - Diverticulitis of intestine, part unspecified, with perforation and abscess without bleeding (ICD-10) Depression ?F32.A - Depression, unspecified (ICD-10) Chronic obstructive pulmonary disease ?J44.9 - Chronic obstructive pulmonary disease, unspecified (ICD-10) Alcohol dependence ?F10.20 - Alcohol dependence, uncomplicated (ICD-10) Acute respiratory failure with hypoxia ?J96.01 - Acute respiratory failure with hypoxia (ICD-10) Surgical History (Updated 09/08/22 @ 12:52 by Jamal Verma PA-C) S/P trigger finger release (08/22/22) ?Z98.890 - Other specified postprocedural states (ICD-10) S/P left knee arthroscopy ?Z98.890 - Other specified postprocedural states (ICD-10) S/P right knee arthroscopy (11/14/06) ?Z98.890 - Other specified postprocedural states (ICD-10) H/O ileostomy ?Z98.890 - Other specified postprocedural states (ICD-10) Status post surgery involving ear ?Z98.890 - Other specified postprocedural states (ICD-10) Status post laparoscopic cholecystectomy (2015) ?Z90.49 - Acquired absence of other specified parts of digestive tract (ICD- 10) History of hysterectomy (1990) ?Z90.710 - Acquired absence of both cervix and uterus (ICD-10) History of colonoscopy (08/13/20) ?Z98.890 - Other specified postprocedural states (ICD-10) History of bilateral mastectomy (06/2015) ?Z90.13 - Acquired absence of bilateral breasts and nipples (ICD-10) History of arthroscopy of right knee (08/07/07) ?Z98.890 - Other specified postprocedural states (ICD-10) History of arthroscopy of left knee (10/12/17) ?Z98.890 - Other specified postprocedural states (ICD-10) History of appendectomy (08/11/21) ?Z90.49 - Acquired absence of other specified parts of digestive tract (ICD- 10) Family History Mother Alzheimer's disease Heart disease Father Stroke Heart disease Unknown Crohn's disease Other Cervical cancer Social History (Reviewed 09/02/22 @ 09:31 by Azul Pizano ~ [facility], [facility]) Narrative: excessive consumption of ethanol- 6 pack/day exercises 5-6 times per week- garden, walks dog , 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[employer]), 3 kids tobacco abuse- 1 pack/day, 30 years Smoking Status: Current every day smoker What tobacco products do you use: cigarettes Smoking packs per day: 1 Smoking cigarettes per day: 20.0 Years smoked: 20 Smoking pack-years: 20.00 Second hand tobacco smoke exposure: Yes How often do you have a drink containing alcohol: 4 or more times a week How many standard drinks containing alcohol do you have on a typical day: 3 or 4 How often do you have six or more drinks on one occasion: Monthly AUDIT-C Alcohol total score: 7 Non-prescribed substance use: denies use Caffeine: Yes (3/day) Little interest or pleasure in doing things: more than half the days Feeling down, depressed, or hopeless: more than half the days service: No Exam Narrative: Exam Narrative: Constitutional: Well-developed, well-nourished, no acute distress. HEENT: Normocephalic, atraumatic. Neck: Normal range of motion. Nontender. Supple. Heart: Regular. No murmurs. Normal rate. Intact distal pulses. Lungs: Clear to auscultation. No chest discomfort. No wheezes, rhonchi, or rales. Abdomen: Normal bowel sounds. Diffuse tenderness in the upper and right abdomen. Mild rebound tenderness is present. Genitalia: Deferred. Back: No midline tenderness. Normal range of motion. Extremities: Normal range of motion. No injury. Skin: Intact. No rash. Warm. No erythema or pallor. Neurologic: No altered sensation. No weakness. Alert and oriented. Psychiatric: No suicidality. No anxiety or depression. No insomnia. Nursing notes and vitals signs are reviewed. Const: Vital Signs, click to edit/add: Vital Signs - 24 hr 01/11/23 15:17 01/11/23 15:35 01/11/23 15:45 Temperature 97.8 F Pulse Rate 81 80 Pulse Rate [Pulse Oximeter] 86 Respiratory Rate 22 Blood Pressure Blood Pressure [Le ft Upper Arm] 163/110 H Pulse Oximetry 94 94 94 Oxygen Delivery Me thod Room Air 01/11/23 16:00 01/11/23 16:01 01/11/23 16:15 Temperature Pulse Rate 80 81 77 Pulse Rate [Pulse Oximeter] Respiratory Rate Blood Pressure 154/94 H Blood Pressure [Le ft Upper Arm] Pulse Oximetry 94 96 94 Oxygen Delivery Me thod 01/11/23 16:30 01/11/23 16:32 01/11/23 16:45 Temperature Pulse Rate 79 79 78 Pulse Rate [Pulse Oximeter] Respiratory Rate Blood Pressure 147/94 H Blood Pressure [Le ft Upper Arm] Pulse Oximetry 94 93 92 Oxygen Delivery Me thod 01/11/23 17:00 01/11/23 17:02 01/11/23 17:03 Temperature Pulse Rate 79 84 82 Pulse Rate [Pulse Oximeter] Respiratory Rate Blood Pressure 153/91 H Blood Pressure [Le ft Upper Arm] Pulse Oximetry 93 94 93 Oxygen Delivery Me thod 01/11/23 17:20 01/11/23 17:30 01/11/23 17:31 Temperature Pulse Rate 97 78 79 Pulse Rate [Pulse Oximeter] Respiratory Rate Blood Pressure 151/91 H Blood Pressure [Le ft Upper Arm] Pulse Oximetry 91 94 94 Oxygen Delivery Me thod 01/11/23 17:45 01/11/23 18:00 01/11/23 18:02 Temperature Pulse Rate 80 79 84 Pulse Rate [Pulse Oximeter] Respiratory Rate Blood Pressure 151/95 H Blood Pressure [Le ft Upper Arm] Pulse Oximetry 94 94 94 Oxygen Delivery Me thod 01/11/23 18:15 01/11/23 18:30 01/11/23 18:32 Temperature Pulse Rate 81 78 82 Pulse Rate [Pulse Oximeter] Respiratory Rate Blood Pressure 153/94 H Blood Pressure [Le ft Upper Arm] Pulse Oximetry 95 94 95 Oxygen Delivery Me thod Course Vital Signs Vital signs: Initial Vital Signs Temperature 97.8 F 01/11/23 15:17 Temperature Source Temporal Artery Scan 01/11/23 15:17 Pulse Rate 86 01/11/23 15:17 Pulse Rhythm Regular 01/11/23 15:17 Respiratory Rate 01/11/23 15:17 Blood Pressure 163/110 H 01/11/23 15:17 Blood Pressure Mean 127 H 01/11/23 15:17 Blood Pressure Position Supine 01/11/23 15:17 Pulse Oximetry 94 01/11/23 15:17 Oxygen Delivery Method Room Air 01/11/23 15:17 Vital Signs Temperature 97.8 F 01/11/23 15:17 Pulse Rate 86 01/11/23 15:17 Respiratory Rate 22 01/11/23 15:17 Blood Pressure 163/110 H 01/11/23 15:17 Pulse Oximetry 94 01/11/23 15:17 Oxygen Delivery Method Room Air 01/11/23 15:17 Temperature 97.8 F 01/11/23 15:17 Pulse Rate 82 01/11/23 18:32 Respiratory Rate 22 01/11/23 15:17 Blood Pressure 153/94 H 01/11/23 18:32 Pulse Oximetry 95 01/11/23 18:32 Oxygen Delivery Method Room Air 01/11/23 15:17 MDM - Abdominal Pain MDM Narrative Medical decision making narrative: This patient comes in reporting abdominal pain that is been rather persistent over the past several months. She has had a few surgeries to her abdomen and does have umbilical and abdominal hernias. She states that the pain is sometimes relieved by a straightening out and relaxing. It could be that this is related to her surgeries or hernia symptoms. An IV was established and labs returned with normal results. Also CT imaging of the abdomen and pelvis returns with no acute findings. I advised the patient to follow-up with her surgeon in clinic for further evaluation and consideration how to treat her persistent abdominal pain. She did receive a prescription for Medrol Dosepak in hopes that an anti-inflammatory treatment may bring some relief. Lab Data Labs: Lab Results 01/11/23 Range/Units 16:00 WBC 9.28 (4.50-11.00) K/uL RBC 4.27 (4.00-5.20) m/uL Hgb 14.4 (12.0-16.0) gm/dL Hct 42.5 (33.0-51.0) % MCV 100 (80-100) fL MCH 34 (26-34) pg MCHC 34 (32-36) gm/dL RDW Coeff of Igor 12.5 (11.5-15.5) % Plt Count 370 (140-440) K/uL Neut % (Auto) 65.0 (42.0-72.0) % Lymph % (Auto) 20.5 (20-44) % Morrill % (Auto) 9.5 (0.0-11.0) % Eos % (Auto) 4.2 (0.0-7.0) % Baso % (Auto) 0.6 (0.0-3.0) % Neut # (Auto) 6.03 (1.7-7.0) K/uL Lymph # (Auto) 1.90 (0.90-2.90) K/uL Morrill # (Auto) 0.90 (0.00-0.90) K/UL Eos # (Auto) 0.39 (0.00-0.50) K/uL Baso # (Auto) 0.06 (0.00-0.30) K/uL Sodium 142 (135-149) mmol/L Potassium 3.8 (3.6-5.1) mmol/L Chloride 108 (96-114) mmol/L Carbon Dioxide 25 (20-32) mmol/L BUN 14 (7-30) mg/dL Creatinine 1.0 (0.5-1.5) mg/dL Estimated Creat Clear 38.68 Estimated GFR 61 ml/min Glucose 103 (60-115) mg/dL Calcium 9.6 (8.4-10.6) mg/dL Total Bilirubin 0.8 (0.1-1.5) mg/dL Direct Bilirubin 0.2 (0.0-0.5) mg/dL AST 35 (12-35) U/L ALT 39 H (4-35) U/L Alkaline Phosphatase 80 (40-150) U/L Total Protein 7.5 (6.0-8.3) g/dL Albumin 4.7 (3.3-5.0) g/dL Lipase 99 (23-300) U/L Discharge Plan Discharge Clinical Impression: Abdominal pain Patient Disposition: Home, Self-Care Condition: Stable Additional Instructions: Continue current plans. Take medication as prescribed. Follow up with clinic for further evaluation and treatment. Return if worsening. Prescriptions: New methylprednisolone [Medrol (Derrell)] 4 mg tablets,dose pack See Rx Instructions .ROUTE .COMPLEX Qty: 21 0RF Rx Instructions: orally per package directions No Action gabapentin 300 mg capsule 300 mg PO TID Qty: 90 5RF citalopram 10 mg tablet 10 mg PO QHS Qty: 90 1RF amlodipine 10 mg tablet 10 mg PO HS Qty: 90 1RF Follow Up/Referrals: Lino Scales MD [Primary Care Provider] - Stand Alone Forms: [facility] Info Instructions
[2023-01-11 16:18] LABS: Basophils Absolute Auto 0.06 K/uL (0.00-0.30); Basophils Percent Auto 0.6 % (0.0-3.0); Eosinophils Absolute Auto 0.39 K/uL (0.00-0.50); Eosinophils Percent Auto 4.2 % (0.0-7.0); Hematocrit 42.5 % (33.0-51.0); Hemoglobin* 14.4 gm/dL (12.0-16.0); Immature Granulocytes Abs Auto 0.02 K/uL (0.00-0.30); Immature Granulocytes Pct Auto 0.2 %; Lymphocytes Percent Auto 20.5 % (20-44); Mean Corpuscular HGB Conc 34 gm/dL (32-36); Mean Corpuscular Hemoglobin 34 pg (26-34); Mean Corpuscular Volume 100 fL (80-100); Monocytes Percent Auto 9.5 % (0.0-11.0); Neutrophils Absolute Auto 6.03 K/uL (1.7-7.0); Platelet Count* 370 K/uL (140-440); RDW Coefficient of Variation % 12.5 % (11.5-15.5); Red Blood Count 4.27 m/uL (4.00-5.20); Slide Review Reflex No; White Blood Count* 9.28 K/uL (4.50-11.00)
[2023-01-11 16:28] LABS: Chloride* 108 mmol/L (96-114); Sodium* 142 mmol/L (135-149)
[2023-01-11 16:29] LABS: Albumin* 4.7 g/dL (3.3-5.0); Potassium* 3.8 mmol/L (3.6-5.1)
[2023-01-11 16:31] LABS: Carbon Dioxide* 25 mmol/L (20-32); Est. Creatinine Clearance* 38.68; Estimated Glomerular Filt Rate 61 ml/min
[2023-01-11 16:32] LABS: Alkaline Phosphatase* 80 U/L (40-150); Aspartate Amino Transferase* 35 U/L (12-35); Bilirubin Direct* 0.2 mg/dL (0.0-0.5); Bilirubin Total* 0.8 mg/dL (0.1-1.5); Blood Urea Nitrogen* 14 mg/dL (7-30); Calcium* 9.6 mg/dL (8.4-10.6); Glucose* 103 mg/dL (60-115); Total Protein* 7.5 g/dL (6.0-8.3)
[2023-01-11 16:33] LABS: Alanine Aminotransferase* 39 U/L (4-35); Lipase* 99 U/L (23-300)
[2023-01-11] MEDS: 0.9 % SODIUM CHLORIDE 500 ML 500 ML IV (17:33)
== END 2023-01-11 19:11 | disposition home or self-care (01) ==
PROVIDERS: Emergency Provider Emergency Medicine Emergency Medical Services; PCP Family Medicine
DX: R10.9 Unspecified abdominal pain (principal)
CPT/HCPCS: 36415; 74177; 80048; 80076; 83690; 85025; 99284; J7120; Q9967

== ENCOUNTER 2023-01-31 07:43 | Outpatient (CLI) | payer MEDICARE, SELFPAY ==
[2023-01-31] MEDS: SODIUM CHLORIDE 0.9 % (FLUSH) 10 ML SYRINGE IVF (09:05)
[2023-01-31] MEDS: REGADENOSON 0.4 MG/5 ML SYRINGE IVP (09:05)
[2023-01-31 09:38] VITALS: BP 133/84; PULSE 85
--- NOTE | 2023-01-31 13:21 | W.PM.STED ---
Stress Test Note Date Date of test: 01/31/23 Providers Referring provider: Lino Scales Primary care provider: Lino Scales Stress test physician: Kevyn Dominguez Stress Test Note Stress test ordered: Lexiscan Indication for test: Dyspnea Stress test medicine: Lexiscan Results discussion: Patient is a very nice 59-year-old female presents for the above test after review of the cardiac stress test medical history, the risks benefits, she would like to proceed pretest EKG shows normal sinus rhythm, with a rate of 73, ventricular, blood pressure 143 on 87. Standard infusion of Lexiscan is done. Over the 5 minute. Her maximum heart rate was 105, maximum blood pressure 167/108. She was really asymptomatic with the infusion, no chest pain no shortness of breath or other anginal equivalents were noted, she had no dysrhythmias, there is no ST wave changes notable on review of her EKG portion. Impression: Negative electrographic portion of Lexiscan Follow up suggested: Await nuclear images to be read by Cardiology and nuclear Medicine, clinical correlation with these will be needed,. Patient will follow-up with the primary care, and left this testing facility in good condition
== END 2023-01-31 07:44 | disposition home or self-care (01) ==
LOC: STRESS 07:44
PROVIDERS: PCP Family Medicine; Visit Provider Family Medicine
DX: R06.09 Other forms of dyspnea (principal)
CPT/HCPCS: 78452; 93016; 93017; A9500; J2785

== ENCOUNTER 2023-02-06 13:33 | Emergency (ER) | payer MEDICARE, SELFPAY ==
[2023-02-06 13:41] VITALS: BP 139/108; PULSE 83; RESP 18; TEMP 36.8; O2SAT 95; BMI 27.5
--- NOTE | 2023-02-06 13:55 | CRLHL7_ITS ---
For Patients: As a result of the Century Cures Act, medical imaging exams and procedure reports are released immediately into your electronic medical record. You may view this report before your referring provider. If you have questions, please contact your health care provider. INDICATION: Abdominal pain, weight loss last month. TECHNIQUE: CT of the abdomen and pelvis with 81 cc Isovue 370 IV contrast. Coronal and sagittal reconstructions. COMPARISON: CT of the abdomen and pelvis 01/11/2023. FINDINGS: Mild hepatic steatosis. Tiny hypodensity in the left hepatic lobe is too small to characterize but likely benign (series 2, image 24). Cholecystectomy. Stable dilation of the common bile duct likely related to post cholecystectomy state. The spleen and pancreas are negative. Stable right adrenal nodule and nonspecific thickening of the left adrenal gland. Hepatic and portal veins appear patent. Symmetric enhancement of the kidneys. No hydronephrosis or ureteral dilation. No obstructing urinary calculi identified. The bladder is unremarkable. Hysterectomy. No adnexal mass. No small bowel dilation. There appears to be mild diffuse small bowel wall thickening which could represent a nonspecific enteritis. Small bowel anastomosis in the right abdomen. Postoperative changes of the sigmoid colon. Appendectomy. No intraperitoneal free air or fluid. No lymphadenopathy. Aortic vascular calcifications. Scarring in the right anterior abdominal wall. Moderate-sized fat containing umbilical hernia. Small fat containing supraumbilical ventral hernia. Mild degenerative changes of the spine. Stable 2 mm noncalcified pulmonary nodule in the lateral right lower lobe (series 3, image 7). The lung bases are otherwise clear. Partially visualized bilateral breast implants. IMPRESSION: 1. Mild diffuse small bowel wall thickening suggesting a nonspecific enteritis. 2. Mild hepatic steatosis. 3. No other acute findings in the abdomen or pelvis. Please note that all CT scans at this facility use dose modulation, iterative reconstruction, and/or weight-based dosing when appropriate to reduce radiation dose to as low as reasonably achievable. Dictated by Marilee Barbosa MD @ 02/06/2023 4:20:20 PM (Electronically Signed)
--- NOTE | 2023-02-06 14:13 | ED.GENADULT ---
HPI - General Adult General Date Seen: 02/06/23 Chief complaint: Abdominal Pain Stated complaint: Abdominal pain, numbness throughout body Time Seen by Provider: 02/06/23 13:42 Source: patient and family Mode of arrival: ambulatory Limitations: no limitations History of Present Illness HPI narrative: Patient is a 67-year-old woman who presents for evaluation of abdominal pain which has been present for a month. She says it is across her upper abdomen, is there quite a bit of the time but sometimes is gone. Worsened by eating and especially alcohol. She says she would like to drink beer every day but as soon as she has a beer her pain gets worse. She has not had significant nausea or vomiting, occasional diarrhea nonbloody stools. No constipation. No urinary symptoms. She has a history of diverticulitis status post resection, ostomy and then take down. She is not on any kind of proton pump inhibitor and is strongly resistant to the idea that her symptoms might be related to gastritis or peptic ulcer disease. She says she has an appointment tomorrow with Dr. Alberto for her hernias. She notes a 5 lb weight loss in the past 2 weeks. No skin or eye changes. No fevers. She is status post cholecystectomy and appendectomy. She does smoke, drinks regularly. Related Data Previous Rx's Medication Instructions Recorded gabapentin 300 mg capsule 300 mg PO TID #90 caps 06/13/22 citalopram 10 mg tablet 10 mg PO QHS #90 tabs 07/12/22 amlodipine 10 mg tablet 10 mg PO HS #90 tabs 10/12/22 albuterol sulfate 90 mcg/actuation 2 puff inhalation Q4-6H PRN 01/23/23 aerosol inhaler shortness of breath or wheezing #8.5 grams Allergies Allergy/AdvReac Type Severity Reaction Status Date / Time oxycodone Allergy Severe Anaphylaxis, Verified 02/06/23 14:33 hives, throat swelling amoxicillin Allergy Intermediate N&V Verified 02/06/23 14:33 hydrocodone Allergy Mild Rash Verified 02/06/23 14:33 varenicline Allergy Mild aggression Verified 02/06/23 14:33 clavulanic acid Allergy Unknown Nausea Verified 02/06/23 14:33 tramadol AdvReac severe Verified 02/06/23 14:33 itching Review of Systems Status of ROS: Reports: 10 or more systems reviewed and unremarkable except as noted in History and below [facility] Medical History 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 - Monoarthritis, not elsewhere classified, unspecified site (ICD-10) Peripheral neuropathy ?G62.9 - Polyneuropathy, unspecified (ICD-10) Excessive drinking of alcohol ?F10.10 - Alcohol abuse, uncomplicated (ICD-10) Tobacco dependence syndrome ?F17.200 - Nicotine dependence, unspecified, uncomplicated (ICD-10) Osteopenia (06/2021) ?M85.80 - Other specified disorders of bone density and structure, unspecified site (ICD-10) Obstructive sleep apnea syndrome (2016) ?G47.33 - Obstructive sleep apnea (adult) (pediatric) (ICD-10) Malignant neoplasm of right breast (04/07/15) ?C50.911 - Malignant neoplasm of unspecified site of right female breast (ICD-10) Leukocytosis ?D72.829 - Elevated white blood cell count, unspecified (ICD-10) Ileostomy present (08/2021) ?Z93.2 - Ileostomy status (ICD-10) Hypokalemia ?E87.6 - Hypokalemia (ICD-10) History of open sigmoidectomy (08/2021) ?Z98.890 - Other specified postprocedural states (ICD-10) ?Z90.49 - Acquired absence of other specified parts of digestive tract (ICD-10) Elevated liver function tests ?R79.89 - Other specified abnormal findings of blood chemistry (ICD-10) Diverticulitis of intestine with perforation and abscess ?K57.80 - Diverticulitis of intestine, part unspecified, with perforation and abscess without bleeding (ICD-10) Depression ?F32.A - Depression, unspecified (ICD-10) Chronic obstructive pulmonary disease ?J44.9 - Chronic obstructive pulmonary disease, unspecified (ICD-10) Alcohol dependence ?F10.20 - Alcohol dependence, uncomplicated (ICD-10) Acute respiratory failure with hypoxia ?J96.01 - Acute respiratory failure with hypoxia (ICD-10) Surgical History S/P trigger finger release (08/22/22) ?Z98.890 - Other specified postprocedural states (ICD-10) S/P left knee arthroscopy ?Z98.890 - Other specified postprocedural states (ICD-10) S/P right knee arthroscopy (11/14/06) ?Z98.890 - Other specified postprocedural states (ICD-10) H/O ileostomy ?Z98.890 - Other specified postprocedural states (ICD-10) Status post surgery involving ear ?Z98.890 - Other specified postprocedural states (ICD-10) Status post laparoscopic cholecystectomy (2015) ?Z90.49 - Acquired absence of other specified parts of digestive tract (ICD-10) History of hysterectomy (1990) ?Z90.710 - Acquired absence of both cervix and uterus (ICD-10) History of colonoscopy (08/13/20) ?Z98.890 - Other specified postprocedural states (ICD-10) History of bilateral mastectomy (06/2015) ?Z90.13 - Acquired absence of bilateral breasts and nipples (ICD-10) History of arthroscopy of right knee (08/07/07) ?Z98.890 - Other specified postprocedural states (ICD-10) History of arthroscopy of left knee (10/12/17) ?Z98.890 - Other specified postprocedural states (ICD-10) History of appendectomy (08/11/21) ?Z90.49 - Acquired absence of other specified parts of digestive tract (ICD-10) Family History Mother Alzheimers disease Heart disease Father Stroke Heart disease Unknown Crohn's disease Other Cervical cancer Social History Narrative: excessive consumption of ethanol- 6 pack/day exercises 5-6 times per week- garden, walks dog , 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[employer]), 3 kids tobacco abuse- 1 pack/day, 30 years Smoking Status: Current some day smoker What tobacco products do you use: cigarettes Smoking packs per day: 1 Smoking cigarettes per day: 20.0 Years smoked: 20 Smoking pack-years: 20.00 Second hand tobacco smoke exposure: Yes How often do you have a drink containing alcohol: 4 or more times a week How many standard drinks containing alcohol do you have on a typical day: 3 or 4 How often do you have six or more drinks on one occasion: Monthly AUDIT-C Alcohol total score: 7 Non-prescribed substance use: denies use Caffeine: Yes (3/day) Little interest or pleasure in doing things: several days Feeling down, depressed, or hopeless: several days service: No Exam Narrative: Exam Narrative: Vital signs as noted above. In general, an alert, nontoxic woman. She looks comfortable. Head: Normocephalic, atraumatic. Eyes: Pupils are equal reactive. Extraocular movements are full. Conjunctivae are normal. ENT: Mucous membranes are moist. Throat is normal. Neck: Supple without lymphadenopathy. Heart: Regular rate and rhythm. No murmur or rub. Lungs: Clear bilaterally. No increased work of breathing, crackles or wheezes. Abdomen: Soft, mild diffuse upper abdominal tenderness without rebound guarding or rigidity. Obese. Extremities: Well perfused. No edema. No calf tenderness. Pulses intact. Neurologic: Patient is alert and oriented to person and place. Speech is fluent. Face is symmetric. Moves all extremities equally. Affect: Normal. Skin: Warm and dry. Well perfused. Const: Vital Signs, click to edit/add: Vital Signs - 24 hr 02/06/23 13:41 02/06/23 16:58 Temperature 98.2 F Pulse Rate [Femora l] 83 87 Respiratory Rate 18 20 Blood Pressure [Le ft Upper Arm] 139/108 H 150/98 H Pulse Oximetry 95 94 Oxygen Delivery Me thod Room Air Documenting provider has reviewed patient's vital signs: yes Course Course Hospital Course: Routine labs are pending, given persistence of pain and concerns with weight loss will get a CT scan to rule out more ominous causes of abdominal pain and weight loss. Discussed with her if we do not find anything I would suggest a proton pump inhibitor just as something to try. Diagnostic considerations include pancreatitis, gastritis, peptic ulcer disease, atypical angina, colitis, diverticulitis, among others. Workup here is fairly unrevealing. CT scan is read by Radiology as showing mild small bowel thickening, possible enteritis. I discussed this with the patient, it certainly may be the cause of her diarrhea but with 1 month of abdominal pain I am a little less suspicious of this being directly related as a cause for abdominal pain. Labs are unremarkable. White blood cell count is 11, hemoglobin normal. Metabolic panel, CRP are normal. LFTs show scant elevations in AST and ALT but otherwise normal. Lipase is 214. Troponin is 0. EKG by my review showed normal sinus rhythm, ventricular rate of 82. Some T-wave flattening throughout but no acute ST segment changes. She has an appointment with Dr. Alberto tomorrow she says to discuss her hernias and I think it is certainly reasonable to keep that appointment, but I have recommended that she make a follow-up appointment with primary care to discuss the abdominal pain. I did ask her to do a trial of omeprazole for a couple of weeks to see if that provides any relief. Certainly minimize alcohol. Return at any time for acute severe pain, vomiting, bloody stools, fever or other changes. Vital Signs Vital signs: Initial Vital Signs Temperature 98.2 F 02/06/23 13:41 Temperature Source Temporal Artery Scan 02/06/23 13:41 Pulse Rate 83 02/06/23 13:41 Pulse Rhythm Regular 02/06/23 13:41 Respiratory Rate 18 02/06/23 13:41 Blood Pressure 139/108 H 02/06/23 13:41 Blood Pressure Mean 118 H 02/06/23 13:41 Blood Pressure Position Supine 02/06/23 13:41 Pulse Oximetry 95 02/06/23 13:41 Oxygen Delivery Method Room Air 02/06/23 13:41 Vital Signs Temperature 98.2 F 02/06/23 13:41 Pulse Rate 83 02/06/23 13:41 Respiratory Rate 18 02/06/23 13:41 Blood Pressure 139/108 H 02/06/23 13:41 Pulse Oximetry 95 02/06/23 13:41 Oxygen Delivery Method Room Air 02/06/23 13:41 Temperature 98.2 F 02/06/23 13:41 Pulse Rate 87 02/06/23 16:58 Respiratory Rate 20 02/06/23 16:58 Blood Pressure 150/98 H 02/06/23 16:58 Pulse Oximetry 94 02/06/23 16:58 Oxygen Delivery Method Room Air 02/06/23 13:41 Medical Decision Making Lab Data Labs: Lab Results 02/06/23 02/06/23 Range/Units 14:22 14:28 WBC 11.02 H (4.50-11.00) K/uL RBC 4.36 (4.00-5.20) m/uL Hgb 14.6 (12.0-16.0) gm/dL Hct 43.3 (33.0-51.0) % MCV 99 (80-100) fL MCH 34 (26-34) pg MCHC 34 (32-36) gm/dL RDW Coeff of Igor 11.8 (11.5-15.5) % Plt Count 360 (140-440) K/uL Neut % (Auto) 73.1 H (42.0-72.0) % Lymph % (Auto) 16.6 L (20-44) % [place] % (Auto) 7.2 (0.0-11.0) % Eos % (Auto) 2.2 (0.0-7.0) % Baso % (Auto) 0.8 (0.0-3.0) % Neut # (Auto) 8.10 H (1.7-7.0) K/uL Lymph # (Auto) 1.80 (0.90-2.90) K/uL [place] # (Auto) 0.80 (0.00-0.90) K/UL Eos # (Auto) 0.20 (0.00-0.50) K/uL Baso # (Auto) 0.10 (0.00-0.30) K/uL Abs Immat Gran (auto) 0.00 (0.00-0.30) K/uL Imm/Tot Granulo (auto) 0.1 % Sodium 140 (135-149) mmol/L Potassium 3.7 (3.6-5.1) mmol/L Chloride 107 (96-114) mmol/L Carbon Dioxide 25 (20-32) mmol/L BUN 15 (7-30) mg/dL Creatinine 1.0 (0.5-1.5) mg/dL Estimated Creat Clear 48.45 Estimated GFR 61 ml/min Glucose 94 (60-115) mg/dL Calcium 9.8 (8.4-10.6) mg/dL Total Bilirubin 1.0 (0.1-1.5) mg/dL Direct Bilirubin 0.1 (0.0-0.5) mg/dL AST 40 H (12-35) U/L ALT 41 H (4-35) U/L Alkaline Phosphatase 87 (40-150) U/L C-Reactive Protein < 0.5 L (0.5-1.0) mg/dL Total Protein 7.8 (6.0-8.3) g/dL Albumin 4.8 (3.3-5.0) g/dL Lipase 214 (23-300) U/L POC Troponin I 0.00 L (0.01-0.04) ng/ml Discharge Plan Discharge Clinical Impression: Abdominal pain Patient Disposition: Home, Self-Care Condition: Stable Instructions: Abdominal Pain (ED) Additional Instructions: Follow-up with Dr. Alberto tomorrow as planned regarding here hernias. I would recommend primary care follow-up as well for abdominal pain. Your CT scan today shows possible mild nonspecific enteritis, but given that your symptoms have been ongoing for month I am not certain that is directly related. I would recommend a 2 week trial of omeprazole, 40 mg daily. You can purchase this over the counter. Your labs are normal aside from very mild elevations of your liver enzymes. Prescriptions: No Action gabapentin 300 mg capsule 300 mg PO TID Qty: 90 5RF albuterol sulfate 90 mcg/actuation HFA aerosol inhaler 2 puff inhalation Q4-6H PRN (Reason: shortness of breath or wheezing) Qty: 8.5 1RF citalopram 10 mg tablet 10 mg PO QHS Qty: 90 1RF amlodipine 10 mg tablet 10 mg PO HS Qty: 90 1RF Follow Up/Referrals: Lino Scales MD [Primary Care Provider] - Stand Alone Forms: [employer] Info Instructions
[2023-02-06 14:40] LABS: Basophils Percent Auto 0.8 % (0.0-3.0); Eosinophils Percent Auto 2.2 % (0.0-7.0); Hematocrit 43.3 % (33.0-51.0); Hemoglobin* 14.6 gm/dL (12.0-16.0); Immature Granulocytes Pct Auto 0.1 %; Lymphocytes Percent Auto 16.6 % (20-44); Mean Corpuscular HGB Conc 34 gm/dL (32-36); Mean Corpuscular Hemoglobin 34 pg (26-34); Mean Corpuscular Volume 99 fL (80-100); Monocytes Percent Auto 7.2 % (0.0-11.0); Neutrophils Percent Auto 73.1 % (42.0-72.0); Platelet Count* 360 K/uL (140-440); RDW Coefficient of Variation % 11.8 % (11.5-15.5); Red Blood Count 4.36 m/uL (4.00-5.20); White Blood Count* 11.02 K/uL (4.50-11.00)
[2023-02-06 14:46] LABS: Slide Review Reflex No
[2023-02-06 14:58] LABS: Albumin* 4.8 g/dL (3.3-5.0); Chloride* 107 mmol/L (96-114); Sodium* 140 mmol/L (135-149)
[2023-02-06 14:59] LABS: Potassium* 3.7 mmol/L (3.6-5.1)
[2023-02-06 15:00] LABS: Est. Creatinine Clearance* 48.45; Estimated Glomerular Filt Rate 61 ml/min
[2023-02-06 15:01] LABS: Alkaline Phosphatase* 87 U/L (40-150); Aspartate Amino Transferase* 40 U/L (12-35); Bilirubin Direct* 0.1 mg/dL (0.0-0.5); Blood Urea Nitrogen* 15 mg/dL (7-30); Carbon Dioxide* 25 mmol/L (20-32); Glucose* 94 mg/dL (60-115); Lipase* 214 U/L (23-300)
[2023-02-06 15:02] LABS: Alanine Aminotransferase* 41 U/L (4-35); Calcium* 9.8 mg/dL (8.4-10.6)
[2023-02-06 15:12] LABS: C Reactive Protein* < 0.5 mg/dL (0.5-1.0)
[2023-02-06 15:18] LABS: Total Protein* 7.8 g/dL (6.0-8.3)
[2023-02-06 16:58] VITALS: BP 150/98; PULSE 87; RESP 20; O2SAT 94
== END 2023-02-06 16:59 | disposition home or self-care (01) ==
PROVIDERS: Emergency Provider Emergency Medicine; PCP Family Medicine
DX: R10.9 Unspecified abdominal pain (principal)
CPT/HCPCS: 36415; 74177; 80048; 80076; 81001; 83605; 83690; 84484; 85025; 86140; 93005; 99284; Q9967

== ENCOUNTER 2023-02-08 12:40 | Outpatient (CLI) | payer MEDICARE, SELFPAY | END 2023-02-08 12:41 | disposition home or self-care (01) | LOC: NFLDREF 02-09 07:47 | PROVIDERS: PCP Family Medicine; Referring Provider Family Medicine; Visit Provider Surgery | DX: R10.13 Epigastric pain (principal) | CPT/HCPCS: 87338 ==

== ENCOUNTER 2023-04-07 08:53 | Outpatient (CLI) | payer MEDICARE, SELFPAY | END 2023-04-07 08:54 | disposition home or self-care (01) | LOC: NFLDREF 04-12 06:45 | PROVIDERS: PCP Family Medicine; Referring Provider Family Medicine; Visit Provider Family Medicine | DX: E78.5 Hyperlipidemia, unspecified (principal) | CPT/HCPCS: 80053; 80061 ==

== ENCOUNTER 2023-07-13 13:32 | Outpatient (RCR) | payer MEDICARE, SELFPAY | END 2024-01-09 23:59 | disposition home or self-care (01) | LOC: CCIC 13:32 | PROVIDERS: PCP Family Medicine; Visit Provider Physician Assistant | DX: C50.911 Malignant neoplasm of unspecified site of right female breast (principal); Z17.0 Estrogen receptor positive status [ER+]; Z90.13 Acquired absence of bilateral breasts and nipples; M85.80 Other specified disorders of bone density and structure, unspecified site; F10.20 Alcohol dependence, uncomplicated; J44.9 Chronic obstructive pulmonary disease, unspecified; F32.A Depression, unspecified; Z72.0 Tobacco use | CPT/HCPCS: 99214; G0463 ==

== ENCOUNTER 2023-07-20 08:32 | Outpatient (CLI) | payer MEDICARE, SELFPAY ==
--- OUTSIDE RECORDS SUMMARY | 2023-07-20 08:36 | XMS_ITS | Clinical Summary ---
Author Name Unknown Organization [facility] Address [place], [place] [address] Care Team Providers Care Agricultural Education Instructor Name Role Phone Pcp, No Primary Care Provider Unavailabl e Allergies Active Allergy Reactions Criticality Noted Date Comments Hydrocodone Itching,Edema 06/22/2015 Oxycodone Rash,Itching 08/23/2013 Medications Medication Sig Dispensed Refills Start Date End Date Status amLODIPine (NORVASC) 10 mg tabletIndications:Hy pertension, unspecified type Take 1 tablet by mouth once daily. 90 tablet 3 01/30/2020 Active citalopram (CELEXA) 20 mg tabletIndications:Ma annabelle depressive disorder, recurrent episode, moderate (HC) Take 1 tablet by mouth once daily. 90 tablet 3 01/30/2020 Active halobetasol 0.05% topical (ULTRAVATE) 0.05 % creamIndications:Pso riasis Apply topically to affected area(s) 2 times daily. 50 g 1 05/25/2020 Active Active Problems Problem Noted Date Diagnosed Date Displacement of breast implant 04/26/2016 JONE 12/03/2015 RDI-15 12/31/2015 Acquired absence of both breasts 10/12/2015 Status post bilateral mastectomy 07/24/2015 Malignant neoplasm of right breast 06/01/2015 Chronic tension-type headache, not intractable 0 03/31/2015 HTN (hypertension) 05/31/2011 Acute gastritis without mention of hemorrhage Major depression, recurrent 08/12/2008 Other and unspecified hyperlipidemia 05/11/2007 Irritable bowel syndrome 05/11/2007 Resolved Problems Problem Noted Date Diagnosed Date Resolved Date Tobacco use disorder 10/28/2010 018 Other malaise and fatigue 02/08/2008 HYPERKALEMIA 02/08/2008 10/06/2015 Depressive disorder, not elsewhere classified 05/11/20 07 08/12/2008 Immunizations Name Administration Dates Next Due Influenza, IIV3 (Age >=3 years) 05/11/2007 Tdap 08/12/2014,01/13/2012 Tuberculin (PPD) 05/12/2010,05/05/2010 Family History Medical History Relation Name Comments Crohn's disease Brother 1 Diabetes Brother 2 age 22 Cancer-breast Daughter Heart Disease Father Cancer Mother ovarian, alzhei mers Stroke Mother Thyroid Disease Mother Stroke Sister age 44 Relation Name Status Comments Brother 1 Brother 2 Daughter Father Mother Sister Social History Tobacco Use Types Packs/Day Years Used Date Smoking Tobacco: Every Day Cigarettes 1 20 Started: 03/25/1991; Last attempted to quit: 03/25/2011 Smokeless Tobacco: Former Quit: 05/20/2015 Tobacco Cessation:Ready to Q uit: No; Counseling Given: Yes Alcohol Use Standard Drinks/Week Comments Yes 3 (1 standard drink = 0.6 oz pur e alcohol) Quit early may 2015 PHQ-2 Answer Date Recorded PHQ-2 TOTAL SCORE 0 01/30/2020 Social Connections Answer Date Recorded Frequency of Communication with Friends and Fami ly Not on file 07/10/2021 Financial Resource Strain Answer Date R ecorded Difficulty of Paying Living Expenses Not on file 07/10/2021 Difficulty of Paying Living Expenses Not on file 07/10/2021 Sex and Gender Information Value Date Recorded Sex Assigned at Female 08/09/2020 9:21 PM SUTURE GAUGER Gender Identity Not on file Sexual Orientation Straight 08/09/2020 9: 21 PM SUTURE GAUGER Obstetrics History Last Filed Vital Signs Vital Sign Reading Time Taken Comments Blood Pressure 121/75 12/03/2020 10:04 AM CDT Pulse 95 12/03/2020 10:04 AM CDT Temperature 36.2 ??C (97.2 ??F) 09/09/2020 3:06 PM CS T Respiratory Rate 20 09/17/2019 2:43 PM CDT Oxygen Saturation 96% 12/03/2020 10:04 AM CDT Inhaled Oxygen Concentration - - Weight 78 kg (172 lb) 12/03/2020 10:04 AM CDT Height 156 cm (5' 1.42) 12/03/2020 10:04 AM CDT Body Mass Index 32.06 12/03/2020 10:04 AM CDT Plan of Treatment Health Maintenance Due Date Last Done Comments COVID-19 vaccine series (#1) 04/10/1956 Hepatitis C screening for ag e 18-79 1972 Zoster (shingles) series for age 50+ (1 of 2) 2004 DEXA/DXA scan for age 65+ 10/10/2019 Pneumococcal series for age 65+ (1 of 1 - PCV) 10/10/2019 Depression screening for age 12+ 01/29/2021 01/30/2020, 01/30/2020, 05/28/2019, Additional history exists Medicare Wellness for age 65+ 01/29/2021 01/30/2020 BMI (ht and wt on same day) for age 18+ 12/03/2021 12/03/2020, 01/30/2020, 05/28/2019, Additional history exists Lipids for age 45-75 09/26/2022 09/26/2017, 08/23/2013, 07/27/2007, Additional history exists Influenza for age 65+ 03/10/2023 05/11/2007 Tetanus booster 08/12/2024 08/12/2014, 01/13/2012 CT Colonography for age 45-75 08/27/2025 08/27/2020 Tdap Completed 08/12/2014, 01/13/2012 Medical Devices Implanted Type Area Single Wire Saw Operator Device Identifier Shelf Expiration Date Model / Serial / Lot [id number] 8breast 550cc Memorygel Rnd High Smooth Silcn [[id number]] Implanted:Qty: 1 on 10/12/2015 by Dorie Floyd MD at Explanted:at (Quantity not on file) Left: Breast [email or web address] 05/07/2020 [id number] # / [id number] 6breast 550cc Memorygel Rnd High Smooth Silcn [[id number]] Implanted:Qty: 1 on 10/12/2015 by Dorie Floyd MD at Explanted:at (Quantity not on file) Right: Breast [email or web address] 04/03/2020 [id number] # / [id number] / [id number] Directives Latest Code Status on File Code Status Date Activated Date Inactivated Comments Full Code 04/26/2016 11:22 AM 04/27/2016 2:30 AM Code Status History Code Status Date Activated Date Inactivated Comments Full Code 10/12/2015 9:37 AM 10/12/2015 3:30 PM Care Teams Agricultural Education Instructor Relationship Specialty Start Date End Date Pcp, No . PCP - General 01/27/21
--- NOTE | 2023-07-20 09:00 | CRLHL7_ITS ---
For Patients: As a result of the Century Cures Act, medical imaging exams and procedure reports are released immediately into your electronic medical record. You may view this report before your referring provider. If you have questions, please contact your health care provider. INDICATION: Right knee pain and weakness. Medial right knee hemiarthroplasty. TECHNIQUE: 25.3 mCi Tc-99m labeled MDP administered. A three-phase bone scan of the knees was performed. FINDINGS: Normal flow phase. Normal blood pool images. Delayed images demonstrate mild activity about the medial right knee hemiarthroplasty which may reflect some degree of bony remodeling. Please correlate with the time course of surgery. There is degenerative type activity within the medial left knee. IMPRESSION: 1. No evidence for infection or loosening of the medial right knee hemiarthroplasty. 2. Minor activity about the medial right knee hemiarthroplasty on delayed images likely related to minimal bony remodeling. 3. Degenerative activity medial compartment left knee. Dictated by Duncan Barba MD @ 07/21/2023 8:28:53 AM (Electronically Signed)
== END 2023-07-20 08:33 | disposition home or self-care (01) ==
LOC: NM 08:33
PROVIDERS: PCP Family Medicine; Visit Provider Physician Assistant Surgical
DX: M25.561 Pain in right knee (principal); Z96.659 Presence of unspecified artificial knee joint
CPT/HCPCS: 78315; A9503

== ENCOUNTER 2023-07-24 08:55 | Outpatient (CLI) | payer MEDICARE, SELFPAY ==
--- OUTSIDE RECORDS SUMMARY | 2023-07-28 10:45 | XMS_ITS | Clinical Summary ---
Author Name Unknown Organization [facility] Address [place], [place] [address] Care Team Providers Care Shoe Laster Name Role Phone Pcp, No Primary Care [...] Sex Assigned at Female 08/09/2020 9:21 PM INTERIOR SPECIALIST Gender Identity Not on file Sexual Orientation Straight 08/09/2020 9: 21 PM INTERIOR SPECIALIST Obstetrics History Last Filed Vital Signs Vital [...] 08/12/2014, 01/13/2012 Medical Devices Implanted Type Area Reel And Rewinder Operator Device Identifier Shelf Expiration Date Model / Serial / Lot [id number] 8breast 550cc Memorygel Rnd High Smooth Silcn [[id number]] Implanted:Qty: 1 on 10/12/2015 by Dorie Floyd MD at [facility] Explanted:at [facility] (Quantity not on file) Left: Breast [employer] 05/07/2020 [id number] # / [id number] 6breast 550cc Memorygel Rnd High Smooth Silcn [[id number]] Implanted:Qty: 1 on 10/12/2015 by Dorie Floyd MD at [facility] Explanted:at [facility] (Quantity not on file) Right: Breast [employer] 04/03/2020 [id number] # / [id number] / [id number] Advance Directives Latest Code Status on File Code Status Date Activated Date Inactivated Comments Full Code 04/26/2016 11:22 AM 04/27/2016 2:30 AM Code Status History Code Status Date Activated Date Inactivated Comments Full Code 10/12/2015 9:37 AM 10/12/2015 3:30 PM Care Teams Shoe Laster Relationship Specialty Start Date End Date Pcp, No . PCP - General 01/27/21
== END 2023-07-24 08:56 | disposition home or self-care (01) ==
LOC: NFLDREF 07-28 10:39
PROVIDERS: PCP Family Medicine; Referring Provider Family Medicine; Visit Provider Family Medicine
DX: E78.5 Hyperlipidemia, unspecified (principal); R79.89 Other specified abnormal findings of blood chemistry; F10.20 Alcohol dependence, uncomplicated
CPT/HCPCS: 80061; 83529; 84450; 84460; 86140

== ENCOUNTER 2023-07-28 14:38 | Outpatient (CLI) | payer MEDICARE, SELFPAY ==
--- OUTSIDE RECORDS SUMMARY | 2023-07-28 14:40 | XMS_ITS | Clinical Summary ---
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 Gender Identity Not on file Sexual Orientation Straight 08/09/2020 9: 21 PM ROUGH ROUNDER MACHINE Obstetrics History Last Filed Vital Signs Vital [...] 08/12/2014, 01/13/2012 Medical Devices Implanted Type Area Staff Nuclear Medicine Technologist Device Identifier Shelf Expiration Date Model / Serial / Lot [id number] 8breast 550cc Memorygel Rnd High Smooth Silcn [[id number]] Implanted:Qty: 1 on 10/12/2015 by Dorie Floyd MD at [facility] Explanted:at [facility] (Quantity not on file) Left: Breast [employer] Visonys 05/07/2020 [id number] # / [id number] 6breast 550cc Memorygel Rnd High Smooth Silcn [[id number]] Implanted:Qty: 1 on 10/12/2015 by Dorie Floyd MD at [facility] Explanted:at [facility] (Quantity not on file) Right: Breast [employer] Visonys 04/03/2020 [id number] # / [id number] / [id number] Advance Directives Latest Code Status on File Code Status Date Activated Date Inactivated Comments Full Code 04/26/2016 11:22 AM 04/27/2016 2:30 AM Code Status History Code Status Date Activated Date Inactivated Comments Full Code 10/12/2015 9:37 AM 10/12/2015 3:30 PM Care Teams Retail Commission Sales Associate Relationship Specialty Start Date End Date Pcp, No . PCP - General 01/27/21
--- NOTE | 2023-07-28 15:00 | CRLHL7_ITS ---
For Patients: As a result of the Century Cures Act, medical imaging exams and procedure reports are released immediately into your electronic medical record. You may view this report before your referring provider. If you have questions, please contact your health care provider. INDICATION: Abdominal pain. TECHNIQUE: CT abdomen and pelvis acquired with 100 cc Omnipaque 350 IV contrast. COMPARISON: None. FINDINGS: Lower chest: Unremarkable. Liver: hepatic steatosis. No suspicious hepatic lesions identified. Gallbladder and bile ducts: Gallbladder is absent. No abnormal intra or extrahepatic biliary ductal dilatation. Pancreas: Unremarkable. No mass or inflammation. Spleen: Unremarkable. Normal in size. No masses. Adrenal glands: Stable right adrenal gland nodule. The left adrenal gland is unremarkable. The Kidneys: Unremarkable. No suspicious masses, stones, or hydronephrosis. GI tract: Rectosigmoid anastomosis. Probable prior appendectomy. No bowel obstruction. Vasculature: Abdominal aorta is normal in caliber. Mesenteric arteries are patent. Lymph nodes: No lymphadenopathy. Peritoneum/Abdominal Wall: small ventral fat containing hernias. No sign of mass or infiltration. No free air or significant free fluid. Pelvis: Status post hysterectomy. Mild bladder wall thickening anteriorly, nonspecific. Bones: Unremarkable for age. IMPRESSION: 1. no definite acute intra-abdominal process identified. 2. Mild anterior bladder wall thickening. Correlate with UA for cystitis. 3. Hepatic steatosis. 4. Status post cholecystectomy, hysterectomy, appendectomy and partial sigmoid resection. Please note that all CT scans at this facility use dose modulation, iterative reconstruction, and/or weight-based dosing when appropriate to reduce radiation dose to as low as reasonably achievable. Dictated by Meghan Malagon MD @ 07/28/2023 3:57:20 PM (Electronically Signed)
== END 2023-07-28 14:39 | disposition home or self-care (01) ==
PROVIDERS: PCP Family Medicine; Visit Provider Family Medicine
DX: R10.9 Unspecified abdominal pain (principal); K76.0 Fatty (change of) liver, not elsewhere classified; Z87.19 Personal history of other diseases of the digestive system; Z90.49 Acquired absence of other specified parts of digestive tract
CPT/HCPCS: 74177; 80053; 86140; Q9967

== ENCOUNTER 2023-08-08 10:00 | Outpatient (RCR) | payer MEDICARE, SELFPAY ==
--- NOTE | 2023-07-26 10:43 | PT.OPEX ---
[facility] Eval PT [facility] Outpatient Eval Start: 07/26/23 07:33 Freq: Status: Active Protocol: Document 07/26/23 07:34 CRP (Rec: 07/26/23 10:40 CRP [id number]) E-signed By Thai Baker PT Physical Therapy Outpatient Evaluation Insurance Information Recert Due Date 10/24/23 Insurance Name Medicare B Medical Diagnosis Bilateral knee pain Referring MD Jamal KITCHEN Subjective Subjective Pt has had a hx of knee pain. 12 years ago had R hemiplasty medial compartment of R knee. Scans did not show signs of loosening. R knee will hurt more medial part of the knee. L knee pain med and lateral along with pain center in the knee. The knee pain is affecting everything. Can having catchign in knee with R greater than L. Standing and walking are most painful. Walking her dog is painful. No swelling. No numbness or tingling. Sxs are better in the morning. If sitting for extended periods of time her knees will be more painful. Pain Comments 02/16 Current Work Status Retired Objective Range of Motion R knee ROM WNL with aching on full knee flex L Knee ROM 0 deg on ext and WNL on flex Hip ROM WNL Strength Knee ext L 4/5, R 4-/5 KNee flex WNL bilat Hip Abd 4-/5 bilat Hip ext 4-/5 bilat Swelling No noted swelling Palpation Palpable pain L knee lateral joint kishor Palpable pain R knee medial joint line Other/Pertinent Objective Pat compression test positive bilat Functional Test Performed & Score Squat test - shows bilat valgus and inability to go below 30 deg knee flexion Assessment Assessment/Impression Pt presents to the clinic with ongoing bilat knee pain. Pt shows probable PF joint and tibiofem joint dysfunction bilaterally. This presentation is characterized by closed chain weakness bilaterally, decreased mobility and poor controlled mobility. Skilled PT is necessary to incorporate ther ex, nm marion, ther act and pt education to decrease pain and improve functional mobility. Primary Functional Limitations Walking sit to stand standing stairs Plan of Care Rehabilitation Potential Good Physical Therapy Goals 1. Pt will be independent with HEP in 8 weeks. 2. Pt will go sit to stand without pain in 10 weeks. 3. 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 Coordination/Communication With Referral Source Treatment Plan/Direct Interventions Gait Training,Joint Mobilization,Manual Therapy, Neuromuscular Re-ed,Self-Care/ Home Management,Therapeutic Activities,Therapeutic Exercises Frequency/Duration 1x/wk for 12 weeks Patient Will Be Discharged From Therapy Completion of LTG(s),Skills Plateau,Independent w/HEP, Independently Progressing Evaluation Billing Untimed Code Treatment Minutes 30 Complexity Moderate Certification Information Initial Certification Date 07/26/23 Ending Certification Date 10/24/23 Provider Signature Shows Agreement With POC & Medical Necessity Physician Signature & Date Requested Please Sign/Date Here Physician Comment/Change : Physician NPI Number #
== END 2023-10-26 15:08 | disposition home or self-care (01) ==
PROVIDERS: PCP Family Medicine; Visit Provider Physician Assistant Surgical
DX: M25.561 Pain in right knee (principal); M25.562 Pain in left knee; Z51.89 Encounter for other specified aftercare
CPT/HCPCS: 97110; 97140; 97162

== ENCOUNTER 2023-08-29 09:00 | Inpatient (IN) | payer MEDICARE, SELFPAY ==
[2023-08-29] VITALS (37 sets, daily range): BP systolic 101–166; BP diastolic 62–97; PULSE 85–117; RESP 16–22; TEMP 36.6–39.6; O2SAT 85–96; BMI 33.8; BMI 33.5
--- NOTE | 2023-08-29 10:17 | XR_ITS ---
Final Report Patient: ALEX CACERES Facility:?[facility] Patient ID:?[id number] Site Patient ID:?[id number]. Site :?[id number] Study:?XRay Chest 2V-08/29/2023 11:00:46 AM Ordering Physician:?DR. CHILEL Final Report: INDICATION: VERTIGO/DIZZINESS TECHNIQUE: Chest 2 views. COMPARISON: None. FINDINGS: Cardiovascular and mediastinum: Heart size and vasculature are normal in caliber and appearance. Lungs and pleural spaces: Lungs are clear. No sign of infiltrate. No sign of pleural effusion. No pneumothorax. Bones and soft tissues: No significant findings. IMPRESSION: No evidence of acute cardiopulmonary process. Dictated by Isael Morris MD @ 08/29/2023 11:33:49 AM (Electronic Signature)
--- OUTSIDE RECORDS SUMMARY | 2023-08-29 10:23 | XMS_ITS | Clinical Summary ---
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 Obstetrics History Last Filed Vital Signs Vital [...] history exists Medicare Wellness for age 65+ 01/30/2021 01/30/2020 BMI (ht and wt on same day) for age 18+ 12/03/2021 12/03/2020, 01/30/2020, 05/28/2019, Additional history exists Lipids for age 45-75 09/26/2022 09/26/2017, 08/23/2013, 07/27/2007, Additional history exists Influenza for age 65+ 03/10/2023 05/11/2007 Tetanus booster 08/12/2024 08/12/2014, 01/13/2012 CT Colonography for age 45-75 08/27/2025 08/27/2020 Tdap Completed 08/12/2014, 01/13/2012 Medical Devices Implanted Type Area Title I Assistant Device Identifier Shelf Expiration Date Model / Serial / Lot [id number] 8breast 550cc Memorygel Rnd High Smooth Silcn [[id number]] Implanted:Qty: 1 on 10/12/2015 by Dorie Floyd MD at [facility] Explanted:at [facility] (Quantity not on file) Left: Breast [employer] Interneer 05/07/2020 [id number] # / [id number] 6breast 550cc Memorygel Rnd High Smooth Silcn [[id number]] Implanted:Qty: 1 on 10/12/2015 by Dorie Floyd MD at [facility] Explanted:at [facility] (Quantity not on file) Right: Breast [employer] Interneer 04/03/2020 [id number] # / [id number] / [id number] Advance Directives Latest Code Status on File Code Status Date Activated Date Inactivated Comments Full Code 04/26/2016 11:22 AM 04/27/2016 2:30 AM Code Status History Code Status Date Activated Date Inactivated Comments Full Code 10/12/2015 9:37 AM 10/12/2015 3:30 PM Care Teams Churn Operator Relationship Specialty Start Date End Date Pcp, No . PCP - General 01/27/21
[2023-08-29] MEDS: METHYLPREDNISOLONE SOD SUCC 62.5 MG/ML (125) 125 MG IVP (10:30)
[2023-08-29] MEDS: IPRAT-ALBUT 0.5-2.5 MG/3 ML NEB 1 NEB IH ×4 (10:30→20:27)
[2023-08-29 10:34] LABS: Basophils Absolute Auto 0.04 K/uL (0.00-0.30); Basophils Percent Auto 0.5 % (0.0-3.0); Eosinophils Absolute Auto 0.03 K/uL (0.00-0.50); Eosinophils Percent Auto 0.4 % (0.0-7.0); Hematocrit 44.3 % (33.0-51.0); Hemoglobin* 14.7 gm/dL (12.0-16.0); Immature Granulocytes Abs Auto 0.04 K/uL (0.00-0.30); Immature Granulocytes Pct Auto 0.5 %; Lymphocytes Percent Auto 5.5 % (20-44); Mean Corpuscular HGB Conc 33 gm/dL (32-36); Mean Corpuscular Hemoglobin 33 pg (26-34); Mean Corpuscular Volume 100 fL (80-100); Monocytes Percent Auto 12.8 % (0.0-11.0); Neutrophils Percent Auto 80.3 % (42.0-72.0); Platelet Count* 243 K/uL (140-440); RDW Coefficient of Variation % 12.5 % (11.5-15.5); Red Blood Count 4.43 m/uL (4.00-5.20); White Blood Count* 8.53 K/uL (4.50-11.00)
[2023-08-29 10:35] LABS: Slide Review Reflex No
[2023-08-29 10:39] LABS: PCR FLU A POSITIVE PCR FLU A (Negative); PCR FLU B Negative PCR FLU B (Negative); PCR RSV Negative PCR RSV (Negative); SARS PCR* Negative SARS-CoV-2 (Negative)
[2023-08-29 10:43] LABS: Albumin* 5.2 g/dL (3.3-5.0); Chloride* 102 mmol/L (96-114); Sodium* 139 mmol/L (135-149)
[2023-08-29 10:44] LABS: Potassium* 3.8 mmol/L (3.6-5.1)
[2023-08-29 10:46] LABS: Alkaline Phosphatase* 88 U/L (40-150); Anion Gap 12 mEq/L (7-15); Aspartate Amino Transferase* 105 U/L (12-35); Bilirubin Total* 0.9 mg/dL (0.1-1.5); Blood Urea Nitrogen* 16 mg/dL (7-30); Carbon Dioxide* 25 mmol/L (20-32); Creatinine* 1.2 mg/dL (0.5-1.5); Est. Creatinine Clearance* 32.23; Estimated Glomerular Filt Rate 49 ml/min; Glucose* 112 mg/dL (60-115); Total Protein* 8.4 g/dL (6.0-8.3)
[2023-08-29 10:47] LABS: Alanine Aminotransferase* 77 U/L (4-35); Calcium* 10.1 mg/dL (8.4-10.6)
--- NOTE | 2023-08-29 10:56 | CT_ITS ---
Final Report Patient: ALEX CACERES Facility:?[facility] Patient ID:?[id number] Site Patient ID:?[id number]. Site :?1955 Study:?CT Abdomen/Pelvis W/ 84CC ISOVUE 370-08/29/2023 12:03:26 PM Ordering Physician:LILO Final Report: INDICATION: Upper abdominal pain. Known hernias. Multiple prior surgeries. COMPARISON: July 28, 2023 TECHNIQUE: CT examination of the abdomen and pelvis was performed following the uneventful intravenous administration of 84 cc of Isovue 370. Thin section axial images were obtained from the lung bases through the pubic symphysis. Oral contrast was not administered. Please note that all CT scans at this facility use dose modulation, iterative reconstruction, and/or weight-based dosing when appropriate to reduce radiation dose to as low as reasonably achievable. FINDINGS: LUNG BASES: The lung bases as visualized appear normal.The heart size is normal at the lung bases. LIVER/BILIARY SYSTEM:The liver is normal in size and configuration. There is no focal mass and there is no intra- or extra hepatic biliary ductal dilatation.Hepatic steatosis. Surgically absent gallbladder. ADRENALS: Normal left adrenal gland. Small 1.4 centimeter right adrenal nodule unchanged. Indeterminate but statistically most likely benign KIDNEYS, URETERS and BLADDER:The kidneys appear normal. No visible mass, calculus or hydronephrosis. The ureters and bladder as visualized appear normal. SPLEEN:Normal appearance. PANCREAS: Appears normal. RETROPERITONEUM and MESENTERY: There is no mass, adenopathy or aortic aneurysm. Atherosclerotic vascular calcification GASTROINTESTINAL SYSTEM: There is no evidence of diverticulitis, colitis, mechanical obstruction, or appendicitis. The small bowel as visualized appears normal.Mild fecal retention. Multiple surgical anastomotic sites identified within the GI system. Scratch PELVIS: No mass, adenopathy or free fluid. OSSEOUS STRUCTURES and ABDOMINAL WALL: There is an age-appropriate appearance of the osseous structures.There are extensive postsurgical changes of the anterior abdominal wall. This includes scarring, diastasis rectus and fat containing ventral hernias. This all appears similar to the prior study without evidence of incarceration or inflammation. There is also a partial defect in the posterior aspect of the right rectus muscle which is probably in a prior surgical site. This admits partially a loop of bowel but there is no evidence of ischemic necrosis or mechanical obstruction. Similar to the prior study. OTHER: No free fluid or free air. Incidental breast implants IMPRESSION: 1. Postsurgical changes of the anterior abdominal wall as described. None of these findings appear acute and all findings are similar to July 28, 2023. Please review the comment regarding the description 2. Postsurgical changes involving the bowel without visible complication or significant change since the prior study. 3. Surgically absent gallbladder. 4. Indeterminate but probably benign right adrenal nodule. Please note that all CT scans at this facility use dose modulation, iterative reconstruction, and/or weight-based dosing when appropriate to reduce radiation dose to as low as reasonably achievable. Dictated by Frandy Villalta MD @ 08/29/2023 12:35:46 PM (Electronic Signature)
[2023-08-29 10:59] LABS: NT Pro B Type NatriureticPept* 316 pg/mL; Troponin I* < 0.01 ng/mL (0.01-0.04)
[2023-08-29] MEDS: ACETAMINOPHEN 325 MG TABLET 650 MG PO (11:00)
--- NOTE | 2023-08-29 11:09 | CT_ITS ---
Final Report Patient: ALEX CACERES Facility:?[facility] Patient ID:?[id number] Site Patient ID:?[id number]. Site :?1955 Study:?CT Chest WITHOUT-08/29/2023 12:00:43 PM Ordering Physician:LILO Final Report: INDICATION: Dyspnea COMPARISON: There are no prior studies for comparison TECHNIQUE: : CT examination of the chest was performed without contrast. Thin axial sections were obtained from above the apices of the lungs to the lung bases. Please note that all CT scans at this facility use dose modulation, iterative reconstruction, and/or weight-based dosing when appropriate to reduce radiation dose to as low as reasonably achievable. FINDINGS: : HEART and MEDIASTINUM: The heart size is normal. There is no mediastinal or hilar adenopathy or mass. There is no pericardial effusion.A few atherosclerotic vascular calcifications are identified LUNGS: The lungs show no focal consolidation or mass. The airways appear normal. PLEURAL SPACES: There is no pleural effusion, pneumothorax or pleural based mass. VISUALIZED UPPER ABDOMEN: The limited visualized upper abdominal structures appear normal. There has been a cholecystectomy OSSEOUS STRUCTURES: Age-appropriate appearance. No acute fracture or destructive process.Breast implants incidentally noted TUBES and LINES: None. IMPRESSION: No evidence of active pulmonary disease. Please note that all CT scans at this facility use dose modulation, iterative reconstruction, and/or weight-based dosing when appropriate to reduce radiation dose to as low as reasonably achievable. Dictated by Frandy Villalta MD @ 08/29/2023 12:22:56 PM (Electronic Signature)
[2023-08-29 12:32] LABS: Lab Add On Test New Spec Needed
[2023-08-29 13:21] LABS: Lactate Sepsis w/Reflex* 1.8 mmol/L (0.5-1.9)
--- NOTE | 2023-08-29 13:42 | ED_ITS ---
HPI - General Adult General Date Seen: 08/29/23 Chief complaint: Dizziness/Vertigo Stated complaint: headache,cough,dizzy Time Seen by Provider: 08/29/23 10:06 Source: patient Mode of arrival: ambulatory Limitations: no limitations History of Present Illness HPI narrative: Patient is a 67-year-old female presenting to emergency department for shortness of breath. She has a history of COPD, alcoholism, chronic elevated LFT is hyperlipidemia, hypertension, multiple abdominal surgeries. Symptoms have been going on for couple days but seemed to be getting worse over the past day. She says she has a severe cough of spine short of breath. She isn't sleeping well and has not had her inhalers for a couple weeks. She was feeling dizzy this morning and had a headache. Denies any sick contacts. Is not aware she has been having a fever this entire time but does have the emergency department. She is also tachycardic. Denies chest pain but is feeling fatigued. She does states she has abdominal pain but is mostly just when she has her coughing fits. She does have quite extensive abdominal surgery history. No other concerns noted at this time Related Data Previous Rx's Medication Instructions Recorded albuterol sulfate 90 mcg/actuation 2 puff inhalation Q4-6H PRN 01/23/23 aerosol inhaler shortness of breath or wheezing #8.5 grams amlodipine 10 mg tablet 10 mg PO HS #90 tabs 04/05/23 gabapentin 300 mg capsule 300 mg PO TID #90 caps 04/05/23 tiotropium bromide 18 mcg capsule 1 cap inhalation QDAY #60 04/05/23 with inhalation device (Spiriva inhalations with HandiHaler) citalopram 10 mg tablet 10 mg PO QHS #90 tabs 08/11/23 Allergies Allergy/AdvReac Type Severity Reaction Status Date / Time oxycodone Allergy Severe Anaphylaxis, Verified 08/29/23 12:55 hives, throat swelling amoxicillin Allergy Intermediate N&V Verified 08/29/23 12:55 hydrocodone Allergy Mild Rash Verified 08/29/23 12:55 varenicline Allergy Mild aggression Verified 08/29/23 12:55 clavulanic acid Allergy Unknown Nausea Verified 08/29/23 12:55 tramadol AdvReac severe Verified 08/29/23 12:55 itching Review of Systems Status of ROS: Reports: 10 or more systems reviewed and unremarkable except as noted in History and below [facility] Medical History 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 - Monoarthritis, not elsewhere classified, unspecified site (ICD-10) Peripheral neuropathy ?G62.9 - Polyneuropathy, unspecified (ICD-10) Excessive drinking of alcohol ?F10.10 - Alcohol abuse, uncomplicated (ICD-10) Tobacco dependence syndrome ?F17.200 - Nicotine dependence, unspecified, uncomplicated (ICD-10) Osteopenia (06/2021) ?M85.80 - Other specified disorders of bone density and structure, unspecified site (ICD-10) Obstructive sleep apnea syndrome (2016) ?G47.33 - Obstructive sleep apnea (adult) (pediatric) (ICD-10) Malignant neoplasm of right breast (04/07/15) ?C50.911 - Malignant neoplasm of unspecified site of right female breast (ICD-10) Leukocytosis ?D72.829 - Elevated white blood cell count, unspecified (ICD-10) Ileostomy present (08/2021) ?Z93.2 - Ileostomy status (ICD-10) Hypokalemia ?E87.6 - Hypokalemia (ICD-10) History of open sigmoidectomy (08/2021) ?Z98.890 - Other specified postprocedural states (ICD-10) ?Z90.49 - Acquired absence of other specified parts of digestive tract (ICD- 10) Elevated liver function tests ?R79.89 - Other specified abnormal findings of blood chemistry (ICD-10) Diverticulitis of intestine with perforation and abscess ?K57.80 - Diverticulitis of intestine, part unspecified, with perforation and abscess without bleeding (ICD-10) Depression ?F32.A - Depression, unspecified (ICD-10) Chronic obstructive pulmonary disease ?J44.9 - Chronic obstructive pulmonary disease, unspecified (ICD-10) Alcohol dependence ?F10.20 - Alcohol dependence, uncomplicated (ICD-10) Acute respiratory failure with hypoxia ?J96.01 - Acute respiratory failure with hypoxia (ICD-10) Surgical History Status post right partial knee replacement (~2010) ?Z96.651 - Presence of right artificial knee joint (ICD-10) S/P trigger finger release (08/22/22) ?Z98.890 - Other specified postprocedural states (ICD-10) S/P left knee arthroscopy (01/11/05) ?Z98.890 - Other specified postprocedural states (ICD-10) S/P right knee arthroscopy (11/14/06) ?Z98.890 - Other specified postprocedural states (ICD-10) H/O ileostomy ?Z98.890 - Other specified postprocedural states (ICD-10) Status post surgery involving ear ?Z98.890 - Other specified postprocedural states (ICD-10) Status post laparoscopic cholecystectomy (2015) ?Z90.49 - Acquired absence of other specified parts of digestive tract (ICD- 10) History of hysterectomy (1990) ?Z90.710 - Acquired absence of both cervix and uterus (ICD-10) History of colonoscopy (08/13/20) ?Z98.890 - Other specified postprocedural states (ICD-10) History of bilateral mastectomy (06/2015) ?Z90.13 - Acquired absence of bilateral breasts and nipples (ICD-10) History of arthroscopy of right knee (08/07/07) ?Z98.890 - Other specified postprocedural states (ICD-10) History of arthroscopy of left knee (10/12/17) ?Z98.890 - Other specified postprocedural states (ICD-10) History of appendectomy (08/11/21) ?Z90.49 - Acquired absence of other specified parts of digestive tract (ICD- 10) Family History Mother Alzheimers disease Heart disease Father Stroke Heart disease Unknown Crohn's disease Other Cervical cancer Social History Narrative: excessive consumption of ethanol- 6 pack/day exercises 5-6 times per week- garden, walks dog , 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[employer]), 3 kids tobacco abuse- 1 pack/day, 30 years Smoking Status: Current every day smoker What tobacco products do you use: cigarettes Smoking packs per day: 0.75 Smoking cigarettes per day: 15.0 Years smoked: 20 Smoking pack-years: 15.00 Second hand tobacco smoke exposure: Yes How often do you have a drink containing alcohol: 4 or more times a week How many standard drinks containing alcohol do you have on a typical day: 3 or 4 How often do you have six or more drinks on one occasion: Daily or almost daily AUDIT-C Alcohol total score: 9 Non-prescribed substance use: denies use Caffeine: Yes (3/day) Little interest or pleasure in doing things: not at all Feeling down, depressed, or hopeless: not at all service: No Exam Narrative: Exam Narrative: Const: Well-nourished, Well-developed, in moderate distress Eyes: PERRL, no conjunctival injection, and symmetrical lids HENT: Atraumatic external nose and ears. Moist mucous membranes. Neck: Symmetric, trachea midline, No thyromegaly. CVS: Tachycardic, No murmurs or gallops. Peripheral pulses 2+ and equal in all extremities RESP: Increased respiratory effort, diffuse wheezing. GI: Nontender/Nondistended, No rebound or guarding. MSK:Extremities w/o deformity, Normal Active ROM Skin: Warm, Dry. No rashes or lesions. Neuro: Normal Muscle tone, No focal neurological deficits. Psych: Awake, Alert, & Oriented x3. Appropriate mood and affect. Const: Vital Signs, click to edit/add: Vital Signs - 24 hr 08/29/23 09:48 08/29/23 10:03 08/29/23 10:04 Temperature 102.2 F H Pulse Rate 107 H 105 H Pulse Rate [Right Pulse Oximeter] 110 H Respiratory Rate 18 Blood Pressure 166/89 H Blood Pressure [Ri ght Upper Arm] 149/81 H Pulse Oximetry 88 88 89 Oxygen Delivery Me thod Room Air Oxygen Flow Rate 08/29/23 10:15 08/29/23 10:30 08/29/23 10:31 Temperature Pulse Rate 104 H 102 H 103 H Pulse Rate [Right Pulse Oximeter] Respiratory Rate 16 Blood Pressure 141/68 H Blood Pressure [Ri ght Upper Arm] Pulse Oximetry 96 95 95 Oxygen Delivery Me thod Nasal Cannula Oxygen Flow Rate 2 08/29/23 10:32 08/29/23 10:55 08/29/23 10:56 Temperature 103.2 F H Pulse Rate 103 H 109 H 110 H Pulse Rate [Right Pulse Oximeter] Respiratory Rate Blood Pressure 145/81 H Blood Pressure [Ri ght Upper Arm] Pulse Oximetry 95 95 92 Oxygen Delivery Me thod Room Air Oxygen Flow Rate 08/29/23 10:56 08/29/23 10:56 08/29/23 10:56 Temperature Pulse Rate 110 H 110 H 110 H Pulse Rate [Right Pulse Oximeter] Respiratory Rate Blood Pressure 145/81 H 145/81 H 145/81 H Blood Pressure [Ri ght Upper Arm] Pulse Oximetry 92 92 87 L Oxygen Delivery Me thod Oxygen Flow Rate 08/29/23 11:00 08/29/23 11:00 08/29/23 11:01 Temperature 102.9 F H Pulse Rate 110 H 107 H Pulse Rate [Right Pulse Oximeter] Respiratory Rate Blood Pressure 146/79 H Blood Pressure [Ri ght Upper Arm] Pulse Oximetry 92 93 Oxygen Delivery Me thod Nasal Cannula Oxygen Flow Rate 2 08/29/23 11:15 08/29/23 11:47 08/29/23 12:01 Temperature 100.7 F H Pulse Rate 107 H 104 H 113 H Pulse Rate [Right Pulse Oximeter] Respiratory Rate 20 Blood Pressure 160/86 H Blood Pressure [Ri ght Upper Arm] Pulse Oximetry 94 94 90 Oxygen Delivery Me thod Nasal Cannula Oxygen Flow Rate 2 08/29/23 12:03 08/29/23 12:15 08/29/23 12:30 Temperature Pulse Rate 106 H 101 H 102 H Pulse Rate [Right Pulse Oximeter] Respiratory Rate Blood Pressure 160/86 H Blood Pressure [Ri ght Upper Arm] Pulse Oximetry 94 90 92 Oxygen Delivery Me thod Oxygen Flow Rate 08/29/23 12:32 08/29/23 12:33 08/29/23 12:45 Temperature Pulse Rate 99 100 104 H Pulse Rate [Right Pulse Oximeter] Respiratory Rate 22 Blood Pressure 165/97 H Blood Pressure [Ri ght Upper Arm] Pulse Oximetry 91 90 93 Oxygen Delivery Me thod Nasal Cannula Oxygen Flow Rate 2 08/29/23 13:00 08/29/23 13:02 08/29/23 13:15 Temperature Pulse Rate 117 H 111 H 107 H Pulse Rate [Right Pulse Oximeter] Respiratory Rate Blood Pressure 150/90 H Blood Pressure [Ri ght Upper Arm] Pulse Oximetry 89 90 88 Oxygen Delivery Me thod Oxygen Flow Rate 08/29/23 13:30 08/29/23 13:31 08/29/23 13:41 Temperature Pulse Rate 104 H 104 H Pulse Rate [Right Pulse Oximeter] Respiratory Rate Blood Pressure 117/62 Blood Pressure [Ri ght Upper Arm] Pulse Oximetry 90 85 L 91 Oxygen Delivery Me thod Room Air Nasal Cannula Oxygen Flow Rate 2 Course Vital Signs Vital signs: Initial Vital Signs Temperature 102.2 F H 08/29/23 09:48 Temperature Source Temporal Artery Scan 08/29/23 09:48 Pulse Rate 110 H 08/29/23 09:48 Respiratory Rate 18 08/29/23 09:48 Blood Pressure 149/81 H 08/29/23 09:48 Blood Pressure Mean 103 08/29/23 09:48 Blood Pressure Position Sitting 08/29/23 09:48 Pulse Oximetry 88 08/29/23 09:48 Oxygen Delivery Method Room Air 08/29/23 09:48 Vital Signs Temperature 102.2 F H 08/29/23 09:48 Pulse Rate 110 H 08/29/23 09:48 Respiratory Rate 18 08/29/23 09:48 Blood Pressure 149/81 H 08/29/23 09:48 Pulse Oximetry 88 08/29/23 09:48 Oxygen Delivery Method Room Air 08/29/23 09:48 Temperature 100.7 F H 08/29/23 12:01 Pulse Rate 104 H 08/29/23 13:31 Respiratory Rate 22 08/29/23 12:32 Blood Pressure 117/62 08/29/23 13:31 Pulse Oximetry 91 08/29/23 13:41 Oxygen Delivery Method Nasal Cannula 08/29/23 13:41 Oxygen Flow Rate 2 08/29/23 13:41 Medications Administered Medications: Discontinued Medications Generic Name Dose Route Start Last Admin Trade Name Freq PRN Reason Stop Dose Admin Acetaminophen 650 mg 08/29/23 10:54 08/29/23 11:00 Acetaminophen 325 Mg Tablet PO 08/29/23 10:55 650 mg ONCE ONE Administration Albuterol/Ipratropium 1 neb 08/29/23 10:17 08/29/23 10:30 Iprat-Albut 0.5-2.5 Mg/3 Ml Neb 08/29/23 10:18 1 neb ONCE ONE Administration Albuterol/Ipratropium 1 neb 08/29/23 12:45 08/29/23 12:48 Iprat-Albut 0.5-2.5 Mg/3 Ml Neb IH 08/29/23 12:46 1 neb ONCE ONE Administration Methylprednisolone Sodium Succinate 125 mg 08/29/23 10:17 08/29/23 10:30 Methylprednisolone Sod Succ 62.5 Mg/Ml (125) IVP 08/29/23 10:18 125 mg ONCE ONE Administration Medical Decision Making MDM Narrative Medical decision making narrative: Patient is 67-year-old female presenting for shortness of breath. Her history is concerning for pneumonia versus pulmonary embolism. D-dimer was ordered. Will also do a cardiac workup including troponins and EKG. CBC and CMP ordered. Unlikely but we will order a BNP to look for signs of CHF. She does meets SIRS criteria septic workup was ordered. Pending chest imaging for D-dimer. Will do a CT scan of the abdomen and pelvis due to of vague abdominal discomfort. Patient given DuoNebs and Solu-Medrol. Tylenol given for fever. Lab work returned that she is positive for flu. She does have elevated LFTs. They are higher than they were previously. CT scan of the abdomen pelvis shows no acute abnormalities. D-dimer within normal limits so PE was unlikely. Chest CT was ordered as from my of view chest x-ray was difficult to definitively rule out pneumonia. After 1st DuoNeb treatment she had some ink approved breathing but still requiring oxygen. Another DuoNeb treatment was given. Initially off oxygen she was satting about 88-89% which is acceptable for COPD patient. As we continue to have her off oxygen her saturations are now sitting about 84-85% consistently with a good waveform. Oxygen was placed back on. She does not wear oxygen at home. Patient was given Tamiflu. Due to all this patient be admitted to the hospital. She is agreeable to this plan. Lab Data Labs: Lab Results 08/29/23 08/29/23 08/29/23 Range/Units 09:55 10:10 12:31 WBC 8.53 (4.50-11.00) K/uL RBC 4.43 (4.00-5.20) m/uL Hgb 14.7 (12.0-16.0) gm/dL Hct 44.3 (33.0-51.0) % MCV 100 (80-100) fL MCH 33 (26-34) pg MCHC 33 (32-36) gm/dL RDW Coeff of Igor 12.5 (11.5-15.5) % Plt Count 243 (140-440) K/uL Neut % (Auto) 80.3 H (42.0-72.0) % Lymph % (Auto) 5.5 L (20-44) % Platte % (Auto) 12.8 H (0.0-11.0) % Eos % (Auto) 0.4 (0.0-7.0) % Baso % (Auto) 0.5 (0.0-3.0) % Neut # (Auto) 6.80 (1.7-7.0) K/uL Lymph # (Auto) 0.50 L (0.90-2.90) K/uL Platte # (Auto) 1.10 H (0.00-0.90) K/UL Eos # (Auto) 0.03 (0.00-0.50) K/uL Baso # (Auto) 0.04 (0.00-0.30) K/uL Abs Immat Gran (auto) 0.04 (0.00-0.30) K/uL Imm/Tot Granulo (auto) 0.5 % D-Dimer Quant (PE/DVT) 0.40 (0.00-0.50) ug/ml Sodium 139 (135-149) mmol/L Potassium 3.8 (3.6-5.1) mmol/L Chloride 102 (96-114) mmol/L Carbon Dioxide 25 (20-32) mmol/L Anion Gap 12 (7-15) mEq/L BUN 16 (7-30) mg/dL Creatinine 1.2 (0.5-1.5) mg/dL Estimated Creat Clear 32.23 Estimated GFR 49 ml/min Glucose 112 (60-115) mg/dL Lactate (0.5-1.9) mmol/L Calcium 10.1 (8.4-10.6) mg/dL Total Bilirubin 0.9 (0.1-1.5) mg/dL AST 105 H (12-35) U/L ALT 77 H (4-35) U/L Alkaline Phosphatase 88 (40-150) U/L Troponin I < 0.01 L (0.01-0.04) ng/mL NT-Pro-B Natriuret Pep 316 pg/mL Total Protein 8.4 H (6.0-8.3) g/dL Albumin 5.2 H (3.3-5.0) g/dL SARS-CoV-2 (PCR) Negative SARS-CoV-2 (Negative) Influenza Type A (PCR) POSITIVE PCR FLU A A (Negative) Influenza Type B (PCR) Negative PCR FLU B (Negative) RSV (PCR) Negative PCR RSV (Negative) Lab Acknowledgement New Spec Needed 08/29/23 Range/Units 13:16 WBC (4.50-11.00) K/uL RBC (4.00-5.20) m/uL Hgb (12.0-16.0) gm/dL Hct (33.0-51.0) % MCV (80-100) fL MCH (26-34) pg MCHC (32-36) gm/dL RDW Coeff of Igor (11.5-15.5) % Plt Count (140-440) K/uL Neut % (Auto) (42.0-72.0) % Lymph % (Auto) (20-44) % Platte % (Auto) (0.0-11.0) % Eos % (Auto) (0.0-7.0) % Baso % (Auto) (0.0-3.0) % Neut # (Auto) (1.7-7.0) K/uL Lymph # (Auto) (0.90-2.90) K/uL Platte # (Auto) (0.00-0.90) K/UL Eos # (Auto) (0.00-0.50) K/uL Baso # (Auto) (0.00-0.30) K/uL Abs Immat Gran (auto) (0.00-0.30) K/uL Imm/Tot Granulo (auto) % D-Dimer Quant (PE/DVT) (0.00-0.50) ug/ml Sodium (135-149) mmol/L Potassium (3.6-5.1) mmol/L Chloride (96-114) mmol/L Carbon Dioxide (20-32) mmol/L Anion Gap (7-15) mEq/L BUN (7-30) mg/dL Creatinine (0.5-1.5) mg/dL Estimated Creat Clear Estimated GFR ml/min Glucose (60-115) mg/dL Lactate 1.8 (0.5-1.9) mmol/L Calcium (8.4-10.6) mg/dL Total Bilirubin (0.1-1.5) mg/dL AST (12-35) U/L ALT (4-35) U/L Alkaline Phosphatase (40-150) U/L Troponin I (0.01-0.04) ng/mL NT-Pro-B Natriuret Pep pg/mL Total Protein (6.0-8.3) g/dL Albumin (3.3-5.0) g/dL SARS-CoV-2 (PCR) (Negative) Influenza Type A (PCR) (Negative) Influenza Type B (PCR) (Negative) RSV (PCR) (Negative) Lab Acknowledgement Imaging Data CT scan - chest: Radiologist's impression: No evidence of active pulmonary disease. Please note that all CT scans at this facility use dose modulation, iterative reconstruction, and/or weight-based dosing when appropriate to reduce radiation dose to as low as reasonably achievable. Dictated by Frandy Villalta MD @ 08/29/2023 12:22:[address] scan abdomen and pelvis: Radiologist's impression: 1. Postsurgical changes of the anterior abdominal wall as described. None of these findings appear acute and all findings are similar to July 28, 2023. Please review the comment regarding the description 2. Postsurgical changes involving the bowel without visible complication or significant change since the prior study. 3. Surgically absent gallbladder. 4. Indeterminate but probably benign right adrenal nodule. Please note that all CT scans at this facility use dose modulation, iterative reconstruction, and/or weight-based dosing when appropriate to reduce radiation dose to as low as reasonably achievable. Dictated by Frandy Villalta MD @ 08/29/2023 12:35:46 PM ECG Data Attestation: I personally reviewed and interpreted this ECG as follows: Prior ECG tracings: available for review Interpretation: Sinus tachycardia with rate of 104 beats per minute, normal intervals, normal axis, no her ST or T-wave abnormalities. Appears similar to previous EKGs on file Discharge Plan Discharge Clinical Impression: COPD exacerbation, Influenza Patient Disposition: Admitted As Observation Condition: Improved Prescriptions: No Action gabapentin 300 mg capsule 300 mg PO TID Qty: 90 12RF amlodipine 10 mg tablet 10 mg PO HS Qty: 90 3RF Spiriva with HandiHaler 18 mcg capsule, w/inhalation device 1 cap inhalation QDAY Qty: 60 12RF Rx Instructions: puncture 1 cap using device; one dose = 2 inhalations albuterol sulfate 90 mcg/actuation HFA aerosol inhaler 2 puff inhalation Q4-6H PRN (Reason: shortness of breath or wheezing) Qty: 8.5 1RF citalopram 10 mg tablet 10 mg PO QHS Qty: 90 1RF Follow Up/Referrals: Lino Scales MD [Primary Care Provider] -
[2023-08-29] MEDS: OSELTAMIVIR PHOSPHATE 75 MG CAPSULE PO ×2 (13:55→20:28)
[2023-08-29] MEDS: guaiFENesin 100 MG/ML CUP PO (14:01)
--- NOTE | 2023-08-29 14:09 | PM.IMHP1 ---
Hospitalist- H&P: HPI History of Present Illness Date Seen: 08/29/23 Chief complaint: headache,cough,dizzy Narrative: Ree Jiang is a 67 year old female past medical history significant for COPD, JONE, alcohol dependence, elevated LFTs, peripheral neuropathy, hypertension, hypokalemia, depression is admitted to the medical floor from the ED for further management acute hypoxic respiratory failure in setting of acute influenza A infection. Patient reports not feeling well for the past several days, worsening over the last day. Increased fatigue and weakness. Complains of a severe cough, causing ribcage pain. Otherwise denies chest pain or tightness. Has had headaches with lightheadedness since not feeling well. Fevers and sweats. Denies nausea or vomiting. No change in stools. No change in urination. Patient tells me her COPD is normally well managed. She has been out of her usual inhalers for a couple of weeks. Denies frequent exacerbations otherwise. Is not oxygen dependent. Does not use a CPAP at night. Continues to be a daily smoker, typically 1 pack per day. Drinks beer daily telling me she has cut ?way back. ? Currently drinking 3 beers daily. Last drink was Monday. Denies history of alcohol withdrawals or seizures. Lives with her and dog. Wishes to be DNR/DNI (has a form but has not had it notarized). Review of Systems Narrative: REVIEW OF SYSTEMS: Complete review of systems performed and negative unless otherwise stated in HPI or below. 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 - Monoarthritis, not elsewhere classified, unspecified site (ICD-10) Peripheral neuropathy ?G62.9 - Polyneuropathy, unspecified (ICD-10) Excessive drinking of alcohol ?F10.10 - Alcohol abuse, uncomplicated (ICD-10) Tobacco dependence syndrome ?F17.200 - Nicotine dependence, unspecified, uncomplicated (ICD-10) Osteopenia (06/2021) ?M85.80 - Other specified disorders of bone density and structure, unspecified site (ICD-10) Obstructive sleep apnea syndrome (2016) ?G47.33 - Obstructive sleep apnea (adult) (pediatric) (ICD-10) Malignant neoplasm of right breast (04/07/15) ?C50.911 - Malignant neoplasm of unspecified site of right female breast (ICD-10) Leukocytosis ?D72.829 - Elevated white blood cell count, unspecified (ICD-10) Ileostomy present (08/2021) ?Z93.2 - Ileostomy status (ICD-10) Hypokalemia ?E87.6 - Hypokalemia (ICD-10) History of open sigmoidectomy (08/2021) ?Z98.890 - Other specified postprocedural states (ICD-10) ?Z90.49 - Acquired absence of other specified parts of digestive tract (ICD-10) Elevated liver function tests ?R79.89 - Other specified abnormal findings of blood chemistry (ICD-10) Diverticulitis of intestine with perforation and abscess ?K57.80 - Diverticulitis of intestine, part unspecified, with perforation and abscess without bleeding (ICD-10) Depression ?F32.A - Depression, unspecified (ICD-10) Chronic obstructive pulmonary disease ?J44.9 - Chronic obstructive pulmonary disease, unspecified (ICD-10) Alcohol dependence ?F10.20 - Alcohol dependence, uncomplicated (ICD-10) Acute respiratory failure with hypoxia ?J96.01 - Acute respiratory failure with hypoxia (ICD-10) Surgical History Status post right partial knee replacement (~2010) ?Z96.651 - Presence of right artificial knee joint (ICD-10) S/P trigger finger release (08/22/22) ?Z98.890 - Other specified postprocedural states (ICD-10) S/P left knee arthroscopy (01/11/05) ?Z98.890 - Other specified postprocedural states (ICD-10) S/P right knee arthroscopy (11/14/06) ?Z98.890 - Other specified postprocedural states (ICD-10) H/O ileostomy ?Z98.890 - Other specified postprocedural states (ICD-10) Status post surgery involving ear ?Z98.890 - Other specified postprocedural states (ICD-10) Status post laparoscopic cholecystectomy (2015) ?Z90.49 - Acquired absence of other specified parts of digestive tract (ICD-10) History of hysterectomy (1990) ?Z90.710 - Acquired absence of both cervix and uterus (ICD-10) History of colonoscopy (08/13/20) ?Z98.890 - Other specified postprocedural states (ICD-10) History of bilateral mastectomy (06/2015) ?Z90.13 - Acquired absence of bilateral breasts and nipples (ICD-10) History of arthroscopy of right knee (08/07/07) ?Z98.890 - Other specified postprocedural states (ICD-10) History of arthroscopy of left knee (10/12/17) ?Z98.890 - Other specified postprocedural states (ICD-10) History of appendectomy (08/11/21) ?Z90.49 - Acquired absence of other specified parts of digestive tract (ICD-10) Family History Mother Alzheimers disease Heart disease Father Stroke Heart disease Unknown Crohn's disease Other Cervical cancer Social History Narrative: excessive consumption of ethanol- 6 pack/day exercises 5-6 times per week- garden, walks dog , 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[email or web address]), 3 kids tobacco abuse- 1 pack/day, 30 years What is your current living situation?: I presently have a place to live Problems where you live: no known problems Problems where you live details: none In the past 12 months, utilities in danger of being shut off: no In past 12 months, lack of transportation kept you from medical appts, meetings, work, or getting things needed for daily living: no In the past 12 mos, have been you worried that your food would run out before you had money to buy more?: never true In the past 12 mos, the food you bought just didn't last and you didn't have money to buy more?: never true Highest level of school completed/degree received: high school graduate Smoking Status: Current every day smoker What tobacco products do you use: cigarettes Smoking packs per day: 1 Smoking cigarettes per day: 20.0 Years smoked: 20 Smoking pack-years: 20.00 Second hand tobacco smoke exposure: Yes How often do you have a drink containing alcohol: 4 or more times a week Alcohol type: beer How many standard drinks containing alcohol do you have on a typical day: 3 or 4 How often do you have six or more drinks on one occasion: Monthly AUDIT-C Alcohol total score: 7 Non-prescribed substance use: denies use Caffeine: Yes (2 cups of coffee a day) How often does anyone, including family, friends and others, physically hurt you: never How often does anyone, including family, friends and others, insult or talk down to you: never How often does anyone, including family, friends and others, threaten you with harm: never How often does anyone, including family, friends and others, scream or curse at you: never Little interest or pleasure in doing things: not at all Feeling down, depressed, or hopeless: not at all service: No Meds Home Medications and Allergies Allergies Allergy/AdvReac Type Severity Reaction Status Date / Time oxycodone Allergy Severe Anaphylaxis, Verified 08/29/23 12:55 hives, throat swelling amoxicillin Allergy Intermediate N&V Verified 08/29/23 12:55 hydrocodone Allergy Mild Rash Verified 08/29/23 12:55 varenicline Allergy Mild aggression Verified 08/29/23 12:55 clavulanic acid Allergy Unknown Nausea Verified 08/29/23 12:55 tramadol AdvReac severe Verified 08/29/23 12:55 itching Exam Narrative: Exam Narrative: PHYSICAL EXAM General: Pleasant, conversant, NAD HEENT: Normocephalic, atraumatic, sclera white, EOMI, oral mucosa moist Cardiovascular: RRR, S1S2. No pitting edema Pulmonary: CTA bilaterally without rhonchi, rales, expiratory wheezes. No dyspnea Abdominal: Soft, nondistended, NTTP Neurological: Alert, answering questions appropriately, cranial nerves intact, no focal findings Extremities: No gross joint deformity or swelling. AROMI. Neurovascularly intact Skin: Warm, dry. Const: Vital Signs, click to edit/add: Vital Signs - 24 hr 08/29/23 09:48 08/29/23 10:03 08/29/23 10:04 Temperature 102.2 F H Pulse Rate 107 H 105 H Pulse Rate [Right Pulse Oximeter] 110 H Respiratory Rate 18 Blood Pressure 166/89 H Blood Pressure [Ri ght Upper Arm] 149/81 H Pulse Oximetry 88 88 89 Oxygen Delivery Me thod Room Air Oxygen Flow Rate 08/29/23 10:15 08/29/23 10:30 08/29/23 10:31 Temperature Pulse Rate 104 H 102 H 103 H Pulse Rate [Right Pulse Oximeter] Respiratory Rate 16 Blood Pressure 141/68 H Blood Pressure [Ri ght Upper Arm] Pulse Oximetry 96 95 95 Oxygen Delivery Me thod Nasal Cannula Oxygen Flow Rate 2 08/29/23 10:32 08/29/23 10:55 08/29/23 10:56 Temperature 103.2 F H Pulse Rate 103 H 109 H 110 H Pulse Rate [Right Pulse Oximeter] Respiratory Rate Blood Pressure 145/81 H Blood Pressure [Ri ght Upper Arm] Pulse Oximetry 95 95 92 Oxygen Delivery Me thod Room Air Oxygen Flow Rate 08/29/23 10:56 08/29/23 10:56 08/29/23 10:56 Temperature Pulse Rate 110 H 110 H 110 H Pulse Rate [Right Pulse Oximeter] Respiratory Rate Blood Pressure 145/81 H 145/81 H 145/81 H Blood Pressure [Ri ght Upper Arm] Pulse Oximetry 92 92 87 L Oxygen Delivery Me thod Oxygen Flow Rate 08/29/23 11:00 08/29/23 11:00 08/29/23 11:01 Temperature 102.9 F H Pulse Rate 110 H 107 H Pulse Rate [Right Pulse Oximeter] Respiratory Rate Blood Pressure 146/79 H Blood Pressure [Ri ght Upper Arm] Pulse Oximetry 92 93 Oxygen Delivery Me thod Nasal Cannula Oxygen Flow Rate 2 08/29/23 11:15 08/29/23 11:47 08/29/23 12:01 Temperature 100.7 F H Pulse Rate 107 H 104 H 113 H Pulse Rate [Right Pulse Oximeter] Respiratory Rate 20 Blood Pressure 160/86 H Blood Pressure [Ri ght Upper Arm] Pulse Oximetry 94 94 90 Oxygen Delivery Me thod Nasal Cannula Oxygen Flow Rate 2 08/29/23 12:03 08/29/23 12:15 08/29/23 12:30 Temperature Pulse Rate 106 H 101 H 102 H Pulse Rate [Right Pulse Oximeter] Respiratory Rate Blood Pressure 160/86 H Blood Pressure [Ri ght Upper Arm] Pulse Oximetry 94 90 92 Oxygen Delivery Me thod Oxygen Flow Rate 08/29/23 12:32 08/29/23 12:33 08/29/23 12:45 Temperature Pulse Rate 99 100 104 H Pulse Rate [Right Pulse Oximeter] Respiratory Rate 22 Blood Pressure 165/97 H Blood Pressure [Ri ght Upper Arm] Pulse Oximetry 91 90 93 Oxygen Delivery Me thod Nasal Cannula Oxygen Flow Rate 2 08/29/23 13:00 08/29/23 13:02 08/29/23 13:15 Temperature Pulse Rate 117 H 111 H 107 H Pulse Rate [Right Pulse Oximeter] Respiratory Rate Blood Pressure 150/90 H Blood Pressure [Ri ght Upper Arm] Pulse Oximetry 89 90 88 Oxygen Delivery Me thod Oxygen Flow Rate 08/29/23 13:30 08/29/23 13:31 08/29/23 13:32 Temperature 98.6 F Pulse Rate 104 H 104 H Pulse Rate [Right Pulse Oximeter] Respiratory Rate Blood Pressure 117/62 Blood Pressure [Ri ght Upper Arm] Pulse Oximetry 90 85 L Oxygen Delivery Me thod Room Air Oxygen Flow Rate 08/29/23 13:41 Temperature Pulse Rate Pulse Rate [Right Pulse Oximeter] Respiratory Rate Blood Pressure Blood Pressure [Ri ght Upper Arm] Pulse Oximetry 91 Oxygen Delivery Me thod Nasal Cannula Oxygen Flow Rate 2 Hospitalist - H&P: Result Labs Labs: Short CBC 08/29/23 Range/Units 10:10 WBC 8.53 (4.50-11.00) K/uL Hgb 14.7 (12.0-16.0) gm/dL Hct 44.3 (33.0-51.0) % Plt Count 243 (140-440) K/uL BMP 08/29/23 10:10 Sodium 139 Potassium 3.8 Chloride 102 Carbon Dioxide 25 BUN 16 Creatinine 1.2 Glucose 112 Calcium 10.1 Cardiac Enzymes 08/29/23 Range/Units 10:10 Troponin I < 0.01 L (0.01-0.04) ng/mL Liver Function 08/29/23 Range/Units 10:10 Total Bilirubin 0.9 (0.1-1.5) mg/dL AST 105 H (12-35) U/L ALT 77 H (4-35) U/L Alkaline Phosphatase 88 (40-150) U/L Albumin 5.2 H (3.3-5.0) g/dL ECG Attestation: I personally reviewed and interpreted this ECG as follows: ECG interpretation date: 08/29/23 Interpretation: Sinus tachycardia, ventricular rate 104, QTC [address] scan - chest: Attestation: I have reviewed the pertinent imaging results. Radiologist's impression: INDICATION: Dyspnea COMPARISON: There are no prior studies for comparison TECHNIQUE: : CT examination of the chest was performed without contrast. Thin axial sections were obtained from above the apices of the lungs to the lung bases. Please note that all CT scans at this facility use dose modulation, iterative reconstruction, and/or weight-based dosing when appropriate to reduce radiation dose to as low as reasonably achievable. FINDINGS: : HEART and MEDIASTINUM: The heart size is normal. There is no mediastinal or hilar adenopathy or mass. There is no pericardial effusion.A few atherosclerotic vascular calcifications are identified LUNGS: The lungs show no focal consolidation or mass. The airways appear normal. PLEURAL SPACES: There is no pleural effusion, pneumothorax or pleural based mass. VISUALIZED UPPER ABDOMEN: The limited visualized upper abdominal structures appear normal. There has been a cholecystectomy OSSEOUS STRUCTURES: Age-appropriate appearance. No acute fracture or destructive process.Breast implants incidentally noted TUBES and LINES: None. IMPRESSION: No evidence of active pulmonary disease. CT scan - abdomen: Attestation: I have reviewed the pertinent imaging results. Radiologist's impression: Upper abdominal pain. Known hernias. Multiple prior surgeries. COMPARISON: July 28, 2023 TECHNIQUE: CT examination of the abdomen and pelvis was performed following the uneventful intravenous administration of 84 cc of Isovue 370. Thin section axial images were obtained from the lung bases through the pubic symphysis. Oral contrast was not administered. Please note that all CT scans at this facility use dose modulation, iterative reconstruction, and/or weight-based dosing when appropriate to reduce radiation dose to as low as reasonably achievable. FINDINGS: LUNG BASES: The lung bases as visualized appear normal.The heart size is normal at the lung bases. LIVER/BILIARY SYSTEM:The liver is normal in size and configuration. There is no focal mass and there is no intra- or extra hepatic biliary ductal dilatation.Hepatic steatosis. Surgically absent gallbladder. ADRENALS: Normal left adrenal gland. Small 1.4 centimeter right adrenal nodule unchanged. Indeterminate but statistically most likely benign KIDNEYS, URETERS and BLADDER:The kidneys appear normal. No visible mass, calculus or hydronephrosis. The ureters and bladder as visualized appear normal. SPLEEN:Normal appearance. PANCREAS: Appears normal. RETROPERITONEUM and MESENTERY: There is no mass, adenopathy or aortic aneurysm. Atherosclerotic vascular calcification GASTROINTESTINAL SYSTEM: There is no evidence of diverticulitis, colitis, mechanical obstruction, or appendicitis. The small bowel as visualized appears normal.Mild fecal retention. Multiple surgical anastomotic sites identified within the GI system. Scratch PELVIS: No mass, adenopathy or free fluid. OSSEOUS STRUCTURES and ABDOMINAL WALL: There is an age-appropriate appearance of the osseous structures.There are extensive postsurgical changes of the anterior abdominal wall. This includes scarring, diastasis rectus and fat containing ventral hernias. This all appears similar to the prior study without evidence of incarceration or inflammation. There is also a partial defect in the posterior aspect of the right rectus muscle which is probably in a prior surgical site. This admits partially a loop of bowel but there is no evidence of ischemic necrosis or mechanical obstruction. Similar to the prior study. OTHER: No free fluid or free air. Incidental breast implants IMPRESSION: 1. Postsurgical changes of the anterior abdominal wall as described. None of these findings appear acute and all findings are similar to July 28, 2023. Please review the comment regarding the description 2. Postsurgical changes involving the bowel without visible complication or significant change since the prior study. 3. Surgically absent gallbladder. 4. Indeterminate but probably benign right adrenal nodule. Assessment and Plan Assessment and plan (1) Acute respiratory failure with hypoxia: Problem comment: -in setting of influenza A -oxygen saturation on room air 84-85% following two nebulizer trials in the ED -continue oxygen supplementation, maintaining saturation > 88 %, weaning as able -RT consult Status: Acute (2) Influenza: Problem comment: -symptomatic cares, Mucinex b.i.d., Tessalon Perles p.r.n. -Tamiflu x5 days Status: Acute (3) COPD exacerbation: Problem comment: -continue oxygen supplementation to maintain saturations > 88%, wean as able -DuoNebs q.i.d., albuterol nebs p.r.n. -continue home inhalers -prednisone daily x5 days -will forego antibiotics at this time, denies history of exacerbations, labs and CT findings unremarkable at this time. Monitor for new or worsening symptoms -smoking cessation Status: Acute (4) Hypertension: Problem comment: -continue amlodipine, monitor Status: Acute (5) Alcohol dependence: Problem comment: -has cut back to 3 beers daily. Last drink was 72 hours ago. Denies history of withdrawal/seizures. Monitor Status: Chronic (6) Elevated liver function tests: Problem comment: -chronic, recheck in a.m. Status: Chronic Plan CODE: DNR/DNI VTE PPX: Enoxaparin Disposition: Home possibly 1-2 days
--- NOTE | 2023-08-29 14:24 | PC.NURSE ---
Report given to JASON Ledbetter on M/S. All questions answered and all belongings sent with.
[2023-08-29 14:43] LABS: Ethanol* < 0.01 % (0.01-0.03)
[2023-08-29] MEDS: 0.9 % SODIUM CHLORIDE 1000 ml 1,000 ML 75 ML IV (16:13)
--- NOTE | 2023-08-29 16:24 | RESP.RT ---
Pt seen. BBS decreased no wheezing/Rhonch/or Rales. Pt on 2L NC, SPO2 91%. will leave overnight and wean in AM. Pt states she was unable to get MDIs filled at local pharmacy as they were out of them. Pt continues to smoke, no interest in quitting at this time. Will provide further COPD education and QandA with her in AM.
--- NOTE | 2023-08-29 18:39 | PC.NURSE ---
End of Shift: Patient pleasant and cooperative. Patient vitally stable, lungs diminished, BS WNL, IV running NS at 75. Patient independent but does ask for stand by help with ambulating due to lines. Patient on 2 L NC with sats in low to mid 90's. Patient has course cough. Patient urinates a large amount with coughing, bed changed x1. Patient tolerating regular diet. Patient denies pain.
[2023-08-29] MEDS: AMLODIPINE 10 MG TABLET PO (20:27)
[2023-08-29] MEDS: guaiFENesin 600 MG TAB.ER.12H PO (20:27)
[2023-08-29] MEDS: CITALOPRAM HYDROBROMIDE 20 MG TABLET 10 MG PO (20:28)
[2023-08-29] MEDS: GABAPENTIN 300 MG CAPSULE PO (20:28)
[2023-08-30] MEDS: BENZONATATE 100 MG CAPSULE PO ×2 (02:43→09:17)
[2023-08-30 03:00] VITALS: BP 113/73; PULSE 89; RESP 20; TEMP 36.7; O2SAT 93
[2023-08-30 06:36] LABS: Hematocrit 39.6 % (33.0-51.0); Hemoglobin* 13.4 gm/dL (12.0-16.0); Mean Corpuscular HGB Conc 34 gm/dL (32-36); Mean Corpuscular Hemoglobin 34 pg (26-34); Mean Corpuscular Volume 100 fL (80-100); Platelet Count* 249 K/uL (140-440); Red Blood Count 3.97 m/uL (4.00-5.20); White Blood Count* 11.72 K/uL (4.50-11.00)
[2023-08-30 06:43] LABS: Slide Review Reflex No
[2023-08-30 06:50] LABS: Albumin* 4.5 g/dL (3.3-5.0); Chloride* 104 mmol/L (96-114)
[2023-08-30 06:51] LABS: Potassium* 3.6 mmol/L (3.6-5.1); Sodium* 139 mmol/L (135-149)
--- NOTE | 2023-08-30 06:52 | PC.NURSE ---
End of shift [id number]: Pt is A&O, afebrile and VSS with exception to O2 requirements. Denies any nausea or lightheadedness. Pt c/o intermittent abdominal muscle pain r/t harsh coughing. Requested PRN Tessalon @ [phone] for increased cough which provided adequate relief. She is SBA/Independent to the bathroom, voiding clear yellow urine. Pt wears a brief for reflex incontinence when coughing. Pt was decreased from 2L NC to 1.5L NC overnight with SATS maintaining > 90%. TELE reads NSR to ST rate in the 80s-90s. PIV in left AC C/D/I and SL as of 529 this morning. Right arm restriction in place d/t h/o breast CA. ?
[2023-08-30 06:53] LABS: Anion Gap 12 mEq/L (7-15); Aspartate Amino Transferase* 95 U/L (12-35); Bilirubin Total* 0.6 mg/dL (0.1-1.5); Carbon Dioxide* 23 mmol/L (20-32); Est. Creatinine Clearance* 38.68; Estimated Glomerular Filt Rate 61 ml/min; Total Protein* 7.5 g/dL (6.0-8.3)
[2023-08-30 06:54] LABS: Alanine Aminotransferase* 69 U/L (4-35); Alkaline Phosphatase* 69 U/L (40-150); Blood Urea Nitrogen* 22 mg/dL (7-30); Calcium* 9.7 mg/dL (8.4-10.6); Glucose* 119 mg/dL (60-115)
[2023-08-30 07:25] VITALS: PULSE 85
[2023-08-30 08:00] VITALS: BP 108/71; PULSE 89; RESP 18; RESP 20; TEMP 36.3; O2SAT 91
[2023-08-30] MEDS: IPRAT-ALBUT 0.5-2.5 MG/3 ML NEB 1 NEB IH (09:17)
[2023-08-30] MEDS: GABAPENTIN 300 MG CAPSULE PO (09:17)
[2023-08-30] MEDS: guaiFENesin 600 MG TAB.ER.12H PO (09:17)
[2023-08-30] MEDS: predniSONE 20 MG TABLET 40 MG PO (09:19)
[2023-08-30] MEDS: OSELTAMIVIR PHOSPHATE 75 MG CAPSULE PO (09:24)
--- NOTE | 2023-08-30 10:38 | PM.DS1 ---
DS: Providers Provider Date Seen: 08/30/23 Date of admission: 08/29/23 14:55 Primary care physician: Lino Scales MD Admitting Clinician: Sonya Walker MD Consults: 08/29/23 14:55 Consult to Respiratory Therapy [CONS] Routine Comment: Reason(s) for RT Consult:: Consult Attending Physician on discharge: Deja Alexandra PA-C Date of Discharge: 08/30/23 DS: Diagnosis Discharge Diagnosis (1) Acute respiratory failure with hypoxia: Status: Acute Problem details: In setting of influenza A, oxygen saturation on room air 84-85% following two nebulizer trials in the ED. Respiratory therapy consulted, continued with oxygen supplementation, eventually weaning to room air on day of discharge. Oxygen saturations at rest while speaking 90-92%. Oxygen saturations with ambulation 88-89%, with quick recovery at rest. No home oxygen required at this time. (2) Influenza: Status: Acute Problem details: Tamiflu x5 days, symptomatic cares, Mucinex b.i.d., Tessalon Perles p.r.n. (3) COPD exacerbation: Status: Acute Problem details: DuoNebs q.i.d., albuterol nebs p.r.n.. Will need to refill inhalers following discharge and continue to take as prescribed. Complete 5 day course of oral prednisone. Smoking cessation encouraged. (4) Hypertension: Status: Acute Problem details: -continued on amlodipine (5) Alcohol dependence: Status: Chronic Problem details: -has cut back to 3 beers daily. Denies history of withdrawal/seizures. (6) Elevated liver function tests: Status: Chronic Problem details: -chronic DS: Summary Hospital Course Hospital Course: [age] year old female past medical history significant for alcohol dependence, elevated LFTs, COPD, tobacco dependence, osteoarthritis was admitted to the medical floor for acute hypoxic respiratory failure in setting of acute influenza A infection. Course of care and details as noted above. Over the course of the night, patient reported significantly improving. Oxygen supplementation weaned to room air. She is discharged to complete 5 day course of Tamiflu, 5 day course of prednisone, continue with Tessalon Perles and Mucinex as needed. Smoking cessation encouraged. Remainder of chronic medical comorbidities were monitored and managed with home medications. Status at Discharge Overall status at discharge: patient is back to baseline Time Spent with Patient Time attestation: Total time spent providing and/or coordinating discharge services: Time spent: Greater than 30 minutes Exam Narrative: Exam Narrative: PHYSICAL EXAM General: Pleasant, conversant, NAD Cardiovascular: RRR Pulmonary: No dyspnea Neurological: Alert, answering questions appropriately Skin: Warm, dry. Const: Vital Signs, click to edit/add: Vital Signs - 24 hr 08/29/23 10:55 08/29/23 10:56 08/29/23 10:56 Temperature 103.2 F H Pulse Rate 109 H 110 H 110 H Pulse Rate [Pulse Oximeter] Pulse Rate [orthos tatic lying] Pulse Rate [orthos tatic sitting] Pulse Rate [orthos tatic standing] Respiratory Rate Blood Pressure 145/81 H 145/81 H Blood Pressure [Le ft Arm] Blood Pressure [or thostatic lying Le ft Arm] Blood Pressure [or thostatic sitting Left Arm] Blood Pressure [or thostatic standing Left Arm] Pulse Oximetry 95 92 92 Oxygen Delivery Me thod Room Air Oxygen Flow Rate 08/29/23 10:56 08/29/23 10:56 08/29/23 11:00 Temperature 102.9 F H Pulse Rate 110 H 110 H Pulse Rate [Pulse Oximeter] Pulse Rate [orthos tatic lying] Pulse Rate [orthos tatic sitting] Pulse Rate [orthos tatic standing] Respiratory Rate Blood Pressure 145/81 H 145/81 H Blood Pressure [Le ft Arm] Blood Pressure [or thostatic lying Le ft Arm] Blood Pressure [or thostatic sitting Left Arm] Blood Pressure [or thostatic standing Left Arm] Pulse Oximetry 92 87 L Oxygen Delivery Me thod Oxygen Flow Rate 08/29/23 11:00 08/29/23 11:01 08/29/23 11:15 Temperature Pulse Rate 110 H 107 H 107 H Pulse Rate [Pulse Oximeter] Pulse Rate [orthos tatic lying] Pulse Rate [orthos tatic sitting] Pulse Rate [orthos tatic standing] Respiratory Rate Blood Pressure 146/79 H Blood Pressure [Le ft Arm] Blood Pressure [or thostatic lying Le ft Arm] Blood Pressure [or thostatic sitting Left Arm] Blood Pressure [or thostatic standing Left Arm] Pulse Oximetry 92 93 94 Oxygen Delivery Me thod Nasal Cannula Oxygen Flow Rate 2 08/29/23 11:47 08/29/23 12:01 08/29/23 12:03 Temperature 100.7 F H Pulse Rate 104 H 113 H 106 H Pulse Rate [Pulse Oximeter] Pulse Rate [orthos tatic lying] Pulse Rate [orthos tatic sitting] Pulse Rate [orthos tatic standing] Respiratory Rate 20 Blood Pressure 160/86 H 160/86 H Blood Pressure [Le ft Arm] Blood Pressure [or thostatic lying Le ft Arm] Blood Pressure [or thostatic sitting Left Arm] Blood Pressure [or thostatic standing Left Arm] Pulse Oximetry 94 90 94 Oxygen Delivery Me thod Nasal Cannula Oxygen Flow Rate 2 08/29/23 12:15 08/29/23 12:30 08/29/23 12:32 Temperature Pulse Rate 101 H 102 H 99 Pulse Rate [Pulse Oximeter] Pulse Rate [orthos tatic lying] Pulse Rate [orthos tatic sitting] Pulse Rate [orthos tatic standing] Respiratory Rate 22 Blood Pressure 165/97 H Blood Pressure [Le ft Arm] Blood Pressure [or thostatic lying Le ft Arm] Blood Pressure [or thostatic sitting Left Arm] Blood Pressure [or thostatic standing Left Arm] Pulse Oximetry 90 92 91 Oxygen Delivery Me thod Nasal Cannula Oxygen Flow Rate 2 08/29/23 12:33 08/29/23 12:45 08/29/23 13:00 Temperature Pulse Rate 100 104 H 117 H Pulse Rate [Pulse Oximeter] Pulse Rate [orthos tatic lying] Pulse Rate [orthos tatic sitting] Pulse Rate [orthos tatic standing] Respiratory Rate Blood Pressure Blood Pressure [Le ft Arm] Blood Pressure [or thostatic lying Le ft Arm] Blood Pressure [or thostatic sitting Left Arm] Blood Pressure [or thostatic standing Left Arm] Pulse Oximetry 90 93 89 Oxygen Delivery Me thod Oxygen Flow Rate 08/29/23 13:02 08/29/23 13:15 08/29/23 13:30 Temperature Pulse Rate 111 H 107 H 104 H Pulse Rate [Pulse Oximeter] Pulse Rate [orthos tatic lying] Pulse Rate [orthos tatic sitting] Pulse Rate [orthos tatic standing] Respiratory Rate Blood Pressure 150/90 H Blood Pressure [Le ft Arm] Blood Pressure [or thostatic lying Le ft Arm] Blood Pressure [or thostatic sitting Left Arm] Blood Pressure [or thostatic standing Left Arm] Pulse Oximetry 90 88 90 Oxygen Delivery Me thod Oxygen Flow Rate 08/29/23 13:31 08/29/23 13:32 08/29/23 13:41 Temperature 98.6 F Pulse Rate 104 H Pulse Rate [Pulse Oximeter] Pulse Rate [orthos tatic lying] Pulse Rate [orthos tatic sitting] Pulse Rate [orthos tatic standing] Respiratory Rate Blood Pressure 117/62 Blood Pressure [Le ft Arm] Blood Pressure [or thostatic lying Le ft Arm] Blood Pressure [or thostatic sitting Left Arm] Blood Pressure [or thostatic standing Left Arm] Pulse Oximetry 85 L 91 Oxygen Delivery Me thod Room Air Nasal Cannula Oxygen Flow Rate 2 08/29/23 14:00 08/29/23 14:01 08/29/23 14:15 Temperature Pulse Rate 101 H 100 102 H Pulse Rate [Pulse Oximeter] Pulse Rate [orthos tatic lying] Pulse Rate [orthos tatic sitting] Pulse Rate [orthos tatic standing] Respiratory Rate Blood Pressure 112/66 Blood Pressure [Le ft Arm] Blood Pressure [or thostatic lying Le ft Arm] Blood Pressure [or thostatic sitting Left Arm] Blood Pressure [or thostatic standing Left Arm] Pulse Oximetry 90 90 92 Oxygen Delivery Me thod Nasal Cannula Oxygen Flow Rate 2 08/29/23 14:37 08/29/23 14:37 08/29/23 15:47 Temperature 98.1 F Pulse Rate Pulse Rate [Pulse Oximeter] 99 Pulse Rate [orthos tatic lying] Pulse Rate [orthos tatic sitting] Pulse Rate [orthos tatic standing] Respiratory Rate 22 22 Blood Pressure Blood Pressure [Le ft Arm] 101/64 Blood Pressure [or thostatic lying Le ft Arm] Blood Pressure [or thostatic sitting Left Arm] Blood Pressure [or thostatic standing Left Arm] Pulse Oximetry 94 94 94 Oxygen Delivery Me thod Nasal Cannula Nasal Cannula Nasal Cannula Oxygen Flow Rate 2 2 2 08/29/23 16:17 08/29/23 16:17 08/29/23 17:25 Temperature 98 F Pulse Rate 91 Pulse Rate [Pulse Oximeter] 90 90 Pulse Rate [orthos tatic lying] Pulse Rate [orthos tatic sitting] Pulse Rate [orthos tatic standing] Respiratory Rate 22 22 Blood Pressure Blood Pressure [Le ft Arm] 105/63 Blood Pressure [or thostatic lying Le ft Arm] Blood Pressure [or thostatic sitting Left Arm] Blood Pressure [or thostatic standing Left Arm] Pulse Oximetry 90 Oxygen Delivery Me thod Nasal Cannula Oxygen Flow Rate 2 08/29/23 17:45 08/29/23 19:00 08/29/23 23:00 Temperature 98.5 F Pulse Rate 89 Pulse Rate [Pulse Oximeter] 96 Pulse Rate [orthos tatic lying] 85 Pulse Rate [orthos tatic sitting] 90 Pulse Rate [orthos tatic standing] 97 Respiratory Rate 18 Blood Pressure Blood Pressure [Le ft Arm] 122/88 Blood Pressure [or thostatic lying Le ft Arm] 119/71 Blood Pressure [or thostatic sitting Left Arm] 121/83 Blood Pressure [or thostatic standing Left Arm] 110/95 H Pulse Oximetry 94 Oxygen Delivery Me thod Nasal Cannula Oxygen Flow Rate 2 08/29/23 23:00 08/29/23 23:00 08/30/23 03:00 Temperature 98.1 F 98.1 F Pulse Rate Pulse Rate [Pulse Oximeter] 93 93 89 Pulse Rate [orthos tatic lying] Pulse Rate [orthos tatic sitting] Pulse Rate [orthos tatic standing] Respiratory Rate 20 20 20 Blood Pressure Blood Pressure [Le ft Arm] 116/70 113/73 Blood Pressure [or thostatic lying Le ft Arm] Blood Pressure [or thostatic sitting Left Arm] Blood Pressure [or thostatic standing Left Arm] Pulse Oximetry 94 93 Oxygen Delivery Me thod Nasal Cannula Nasal Cannula Oxygen Flow Rate 1.5 1.5 08/30/23 07:25 08/30/23 08:00 08/30/23 08:00 Temperature 97.3 F L Pulse Rate 85 Pulse Rate [Pulse Oximeter] 89 Pulse Rate [orthos tatic lying] Pulse Rate [orthos tatic sitting] Pulse Rate [orthos tatic standing] Respiratory Rate 20 18 Blood Pressure Blood Pressure [Le ft Arm] 108/71 Blood Pressure [or thostatic lying Le ft Arm] Blood Pressure [or thostatic sitting Left Arm] Blood Pressure [or thostatic standing Left Arm] Pulse Oximetry 91 Oxygen Delivery Me thod Room Air Oxygen Flow Rate DS: Data Data Completed and Pending Completed studies during hospitalization: Procedures Pending studies at discharge: BC x2 pending Labs on day of discharge: Labs from last 24 hours 08/30/23 08/29/23 08/29/23 06:04 13:16 12:31 WBC 11.72 H RBC 3.97 L Hgb 13.4 Hct 39.6 MCV 100 MCH 34 MCHC 34 Plt Count 249 D-Dimer Quant (PE/DVT) Sodium 139 Potassium 3.6 Chloride 104 Carbon Dioxide 23 Anion Gap 12 BUN 22 Creatinine 1.0 Estimated Creat Clear 38.68 Estimated GFR 61 Glucose 119 H Lactate 1.8 Calcium 9.7 Total Bilirubin 0.6 AST 95 H ALT 69 H Alkaline Phosphatase 69 Troponin I NT-Pro-B Natriuret Pep Total Protein 7.5 Albumin 4.5 Ethyl Alcohol SARS-CoV-2 (PCR) Influenza Type A (PCR) Influenza Type B (PCR) RSV (PCR) Lab Acknowledgement New Spec Needed 08/29/23 08/29/23 10:10 09:55 WBC RBC Hgb Hct MCV MCH MCHC Plt Count D-Dimer Quant (PE/DVT) 0.40 Sodium 139 Potassium 3.8 Chloride 102 Carbon Dioxide 25 Anion Gap 12 BUN 16 Creatinine 1.2 Estimated Creat Clear 32.23 Estimated GFR 49 Glucose 112 Lactate Calcium 10.1 Total Bilirubin 0.9 AST 105 H ALT 77 H Alkaline Phosphatase 88 Troponin I < 0.01 L NT-Pro-B Natriuret Pep 316 Total Protein 8.4 H Albumin 5.2 H Ethyl Alcohol < 0.01 L SARS-CoV-2 (PCR) Negative SARS-CoV-2 Influenza Type A (PCR) POSITIVE PCR FLU A A Influenza Type B (PCR) Negative PCR FLU B RSV (PCR) Negative PCR RSV Lab Acknowledgement Test Added Imaging CT scan - chest: Attestation: I have reviewed the pertinent imaging results. Radiologist's impression: INDICATION: Dyspnea COMPARISON: There are no prior studies for comparison TECHNIQUE: : CT examination of the chest was performed without contrast. Thin axial sections were obtained from above the apices of the lungs to the lung bases. Please note that all CT scans at this facility use dose modulation, iterative reconstruction, and/or weight-based dosing when appropriate to reduce radiation dose to as low as reasonably achievable. FINDINGS: : HEART and MEDIASTINUM: The heart size is normal. There is no mediastinal or hilar adenopathy or mass. There is no pericardial effusion.A few atherosclerotic vascular calcifications are identified LUNGS: The lungs show no focal consolidation or mass. The airways appear normal. PLEURAL SPACES: There is no pleural effusion, pneumothorax or pleural based mass. VISUALIZED UPPER ABDOMEN: The limited visualized upper abdominal structures appear normal. There has been a cholecystectomy OSSEOUS STRUCTURES: Age-appropriate appearance. No acute fracture or destructive process.Breast implants incidentally noted TUBES and LINES: None. IMPRESSION: No evidence of active pulmonary disease. CT scan - abdomen: Attestation: I have reviewed the pertinent imaging results. Radiologist's impression: INDICATION: Upper abdominal pain. Known hernias. Multiple prior surgeries. COMPARISON: July 28, 2023 TECHNIQUE: CT examination of the abdomen and pelvis was performed following the uneventful intravenous administration of 84 cc of Isovue 370. Thin section axial images were obtained from the lung bases through the pubic symphysis. Oral contrast was not administered. Please note that all CT scans at this facility use dose modulation, iterative reconstruction, and/or weight-based dosing when appropriate to reduce radiation dose to as low as reasonably achievable. FINDINGS: LUNG BASES: The lung bases as visualized appear normal.The heart size is normal at the lung bases. LIVER/BILIARY SYSTEM:The liver is normal in size and configuration. There is no focal mass and there is no intra- or extra hepatic biliary ductal dilatation.Hepatic steatosis. Surgically absent gallbladder. ADRENALS: Normal left adrenal gland. Small 1.4 centimeter right adrenal nodule unchanged. Indeterminate but statistically most likely benign KIDNEYS, URETERS and BLADDER:The kidneys appear normal. No visible mass, calculus or hydronephrosis. The ureters and bladder as visualized appear normal. SPLEEN:Normal appearance. PANCREAS: Appears normal. RETROPERITONEUM and MESENTERY: There is no mass, adenopathy or aortic aneurysm. Atherosclerotic vascular calcification GASTROINTESTINAL SYSTEM: There is no evidence of diverticulitis, colitis, mechanical obstruction, or appendicitis. The small bowel as visualized appears normal.Mild fecal retention. Multiple surgical anastomotic sites identified within the GI system. Scratch PELVIS: No mass, adenopathy or free fluid. OSSEOUS STRUCTURES and ABDOMINAL WALL: There is an age-appropriate appearance of the osseous structures.There are extensive postsurgical changes of the anterior abdominal wall. This includes scarring, diastasis rectus and fat containing ventral hernias. This all appears similar to the prior study without evidence of incarceration or inflammation. There is also a partial defect in the posterior aspect of the right rectus muscle which is probably in a prior surgical site. This admits partially a loop of bowel but there is no evidence of ischemic necrosis or mechanical obstruction. Similar to the prior study. OTHER: No free fluid or free air. Incidental breast implants IMPRESSION: 1. Postsurgical changes of the anterior abdominal wall as described. None of these findings appear acute and all findings are similar to July 28, 2023. Please review the comment regarding the description 2. Postsurgical changes involving the bowel without visible complication or significant change since the prior study. 3. Surgically absent gallbladder. 4. Indeterminate but probably benign right adrenal nodule. Chest x-ray: Attestation: I have reviewed the pertinent imaging results. Radiologist's impression: Chest 2 views. COMPARISON: None. FINDINGS: Cardiovascular and mediastinum: Heart size and vasculature are normal in caliber and appearance. Lungs and pleural spaces: Lungs are clear. No sign of infiltrate. No sign of pleural effusion. No pneumothorax. Bones and soft tissues: No significant findings. IMPRESSION: No evidence of acute cardiopulmonary process. Additional Comments Additional comments: Is followed by Dr. Alberto, General Surgery, for abdomen. Discharge Plan Discharge Disposition: Home, Self-Care Date of Admission: 08/29/23 14:55 Attending Provider on Discharge: Deja Alexandra Primary Care Provider: Lino Scales Condition: Improved Anticipated Discharge Date/Time: 08/30/23 10:26 Discharge Medications: New prednisone 20 mg Tablet 40 mg PO DAILYWM Qty: 8 0RF benzonatate 100 mg Capsule 100 mg PO TID PRN (Reason: Cough) Qty: 30 0RF oseltamivir 75 mg Capsule 75 mg PO BID Qty: 8 0RF Continued gabapentin 300 mg capsule 300 mg PO TID Qty: 90 12RF amlodipine 10 mg tablet 10 mg PO HS Qty: 90 3RF Spiriva with HandiHaler 18 mcg capsule, w/inhalation device 1 cap inhalation QDAY Qty: 60 12RF Rx Instructions: puncture 1 cap using device; one dose = 2 inhalations albuterol sulfate 90 mcg/actuation HFA aerosol inhaler 2 puff inhalation Q4-6H PRN (Reason: shortness of breath or wheezing) Qty: 8.5 1RF acetaminophen 500 mg tablet 500 - 1,000 mg PO Q6H PRN citalopram 10 mg tablet 10 mg PO QHS Qty: 90 1RF Discharge Orders: Discharge Order (Routine); Ordered 08/30/23 Ordered By: Deja Alexandra Patient Education: Influenza (GEN) Additional Instructions: Continue Tamiflu, completing a 5 day course. Finish the prescription for Prednisone as well. You may use Tessalon perles for your cough. Make sure to get your inhalers refilled and use those as prescribed. Smoking cessation is encouraged Activity Level: No Restrictions Discharge Diet: Regular Follow Up Appointments: Lino Scales MD [Primary Care Provider] - 09/08/23 (Post hospital follow up, acute hypoxic respiratory failure, influenza A) Forms: [employer] Info Instructions
[2023-08-30 11:30] VITALS: BP 112/68; PULSE 85; RESP 18; TEMP 36.1; O2SAT 90
--- NOTE | 2023-08-30 11:47 | PC.NURSE ---
discharge. pt has been VERY pleasant. no pain. o2 was on @ 1.5L nc and o2 was taken off, cont sao2 was left on to monitor. Denies any nausea or lightheadedness. Pt c/o intermittent dry coughing. PRN Tessalon given. She is Independent. Pt wears a brief. Tele shows NSR. SL was d/c intact. Right arm restriction. went over discharge packet with pt. went over medications, appointments, instructions and educations. pt went over and signed personal belonging sheet, waiting for her ride.
== END 2023-08-30 11:30 | disposition home or self-care (01) | DRG 193 ==
LOC: ED 13:51 → MEDSURG 14:37
PROVIDERS: Admitting Provider Physician Assistant; Emergency Provider Student in an Organized Health Care Education/Training Program; PCP Family Medicine; Visit Provider Physician Assistant
DX: J10.1 Influenza due to other identified influenza virus with other respiratory manifestations (principal); J96.01 Acute respiratory failure with hypoxia; J44.1 Chronic obstructive pulmonary disease with (acute) exacerbation; G47.33 Obstructive sleep apnea (adult) (pediatric); F10.20 Alcohol dependence, uncomplicated; R79.89 Other specified abnormal findings of blood chemistry; F17.210 Nicotine dependence, cigarettes, uncomplicated; I10 Essential (primary) hypertension; G62.9 Polyneuropathy, unspecified; R10.10 Upper abdominal pain, unspecified
CPT/HCPCS: 36415; 71046; 71250; 74177; 80053; 82077; 83605; 83880; 84484; 85025; 85027; 85379; 87040; 87631; 93005; 94640; 94761; 99284; 99285; A9270; J2930; J7030; J7512; Q9967

== ENCOUNTER 2024-03-07 10:26 | Outpatient (CLI) | payer MEDICARE, SELFPAY ==
--- OUTSIDE RECORDS SUMMARY | 2024-03-09 21:43 | XMS_ITS | Clinical Summary ---
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 [employer] Obstetrics History Last Filed Vital Signs Vital [...] Health Maintenance Due Date Last Done Comments Hepatitis C screening for ag e 18-79 [...] 09/26/2022 09/26/2017, 08/23/2013, 07/27/2007, Additional history exists COVID-19 vaccine series ( season) 2023 Influenza for age 65+ 03/10/2024 05/11/2007 Tetanus booster 08/12/2024 08/12/2014, 01/13/2012 CT Colonography for age 45-75 08/27/2025 08/27/2020 Tdap Completed 08/12/2014, 01/13/2012 Medical Devices Implanted Type Area Mica Splitter Device Identifier Shelf Expiration Date Model / Serial / Lot [id number] 8breast 550cc Memorygel Rnd High Smooth Silcn [[id number]] Implanted:Qty: 1 on 10/12/2015 by Dorie Floyd MD at [facility] Explanted:at [facility] (Quantity not on file) Left: Breast [employer] 05/07/2020 [id number] # / [id number] 6breast 550cc Memorygel Rnd High Smooth Silcn [[id number]] Implanted:Qty: 1 on 10/12/2015 by Dorie Floyd MD at [facility] Explanted:at [facility] (Quantity not on file) Right: Breast [employer] 04/03/2020 [id number] # / [id number] Procedures Procedure Name Priority Date/Time Associated Diagnosis Comments CT ABDOMEN PELVIS COLONOGRAPHY DIAGNOSTIC W Routine 08/27/2020 11:42 AM SUPERVISOR [employer] Diarrhea, unspecified type Procedure and treatment not carried out for other reasons LIPID PANEL Routine 09/26/2017 2:56 PM CDT Hyperlipidemia, unspecified hyperlipidemia type from Last 3 Months or Most Recently Relevant to Health Maintenance Results * CT ABDOMEN PELVIS COLONOGRAPHY DIAGNOSTIC W (08/27/2020 11:42 AM SUPERVIS[employer]) Anatomical Region Laterality Modality Abdomen Other 08/27/2020 11:4 2 AM SUPER[employer] Narrative 08/27/2020 12:12 PM SUPERVISOR [employer] EXAM DATE: ? 08/27/2020 EXAM: CT COLONOGRAPHY LOCATION: [facility] DATE/TIME: 08/27/2020 11:00 AM INDICATION: Diarrhea. Incomplete colonoscopy due to severe diverticulosis sigmoid colon with possible stricture.. Colonoscopy reached the sigmoid colon. COMPARISON: Colonoscopy report from earlier today. Routine CT abdomen 01/30/2020 TECHNIQUE: Prone and supine CT abdomen and pelvis with air insufflation per rectum, with image postprocessing. Oral contrast. Dose reduction techniques were used. Contrast used due to the concern for possible stricture. CONTRAST: 75ml of [id number] was administered from a single use vial with 25ml discarded. ??SPR I-STAT Cr=1.0mg/dl, eGFR=56. [id number] ??Lot [id number] ??Ex: 12/2022 FINDINGS: COLON: Severe diverticulosis mid sigmoid colon with some generalized colonic thickening extending for the length of 7 cm. Appearance consistent with mild chronic diverticulitis. No concerning features. Similar appearance when compared to 01/30/20002009 CT. Colon otherwise negative. No colonic perforation. All segments well seen. C Score: C1 Note: CT colonography is not intended for the detection of diminutive polyps (i.e. polyps less than or equal to 5mm), the presence of which will not likely twisting frame changer of the patient. ADDITIONAL FINDINGS: No signifcant finding in the liver, spleen, pancreas, adrenal glands, and kidneys. Normal caliber abdominal aorta. No pelvic masses. Postop change in the pelvis. E Score: E1, Normal examination or anatomic variant IMPRESSION: 1. ??Extensive diverticulosis and changes of mild chronic diverticulitis mid sigmoid colon. No concerning features. 2. ?? Colon otherwise negative. 3. ??No significant extracolonic findings. ?? Procedure Note Duncan Flores MD - 08/27/2020 EXAM DATE: 08/27/2020 EXAM: CT COLONOGRAPHY LOCATION: [facility] DATE/TIME: 08/27/2020 11:00 AM INDICATION: Diarrhea. Incomplete colonoscopy due to severe diverticulosissigmoid colon with possible stricture.. Colonoscopy reached the sigmoid colon. COMPARISON: Colonoscopy report from earlier today. Routine CT [id number]/30/2020 TECHNIQUE: Prone and supine CT abdomen and pelvis with air insufflationper rectum, with image postprocessing. Oral contrast. Dose reductiontechniques were used. Contrast used due to the concern for possible stricture. CONTRAST: 75ml of [id number] was administered from a single use vial [id number] discarded. SPR I-STAT Cr=1.0mg/dl, eGFR=56. [id number] Lot [id number] Ex:12/2022 FINDINGS: COLON: Severe diverticulosis mid sigmoid colon with some generalized colonicthickening extending for the length of 7 cm. Appearance consistent with mild chronic diverticulitis. No concerning features. Similar appearance when comparedto 01/30/[address] Colon otherwise negative. No colonic perforation. All segments well seen. C Score: C1 Note: CT colonography is not intended for the detection of diminutivepolyps (i.e. polyps less than or equal to 5mm), the presence of which will not likelychange management of the patient. ADDITIONAL FINDINGS: No signifcant finding in the liver, spleen, pancreas,adrenal glands, and kidneys. Normal caliber abdominal aorta. No pelvic masses.Postop change in the pelvis. E Score: E1, Normal examination or anatomic variant IMPRESSION: 1. Extensive diverticulosis and changes of mild chronic diverticulitismid sigmoid colon. No concerning features. 2. Colon otherwise negative. 3. No significant extracolonic findings. Jasiel Riojas MD CT * (ABNORMAL) LIPID PANEL (09/26/2017 2:56 PM CDT) CHOLESTEROL,TOTAL 231(H) 100 - 199 mg/dL 09/26/2017 8:33 PM CDT [facility] TRIGLYCERIDES 192(H) <150 mg/dL 09/26/2017 8:33 PM CDT [facility] HDL CHOLESTEROL 54 >40 mg/dL 8 8:33 PM CDT [facility] NON-HDL CHOLESTEROL 177(H) <145 mg/dl 09/26/2017 8:33 PM CDT [facility] CHOL/HDL RATIO 4.28 <4.50 09/26/2017 8:33 PM CDT [facility] LDL CHOLESTEROL 139(H) <=130 mg/dL 09/26/2017 8:33 PM CDT [facility] PROVIDER ORDERED STATUS RANDOM 09/26/2017 8:33 PM CDT [facility] Blood BLOOD SPECIMEN / Unknown Venipuncture / Unknown 09/26/2017 2:56 PM CDT 09/26/2017 2:56 PM CDT Laura Mcclure MD [facility] [address] [place] [address], from Last 3 Months or Most Recently Relevant to Health Maintenance Advance Directives * Full Code (Latest Code Status on File) Date Activated Date Inactivated Comments 04/26/2016 11:22 AM 04/27/2016 2:30 AM * Full Code Date Activated Date Inactivated Comments 10/12/2015 9:37 AM 10/12/2015 3:30 PM Care Teams Director Recreation Relationship Specialty Start Date End Date Pcp, No . PCP - General 01/27/21
== END 2024-03-07 10:27 | disposition home or self-care (01) ==
LOC: NFLDREF 03-09 21:42
PROVIDERS: PCP Family Medicine; Referring Provider Family Medicine; Visit Provider Family Medicine
DX: E78.5 Hyperlipidemia, unspecified (principal); I10 Essential (primary) hypertension
CPT/HCPCS: 80053; 80061

== ENCOUNTER 2024-08-16 09:18 | Outpatient (CLI) | payer MEDICARE, SELFPAY ==
--- NOTE | 2024-08-16 09:15 | CRLHL7_ITS ---
For Patients: As a result of the Century Cures Act, medical imaging exams and procedure reports are released immediately into your electronic medical record. You may view this report before your referring provider. If you have questions, please contact your health care provider. EXAM: MRI OF THE RIGHT SHOULDER, WITHOUT CONTRAST CLINICAL INDICATION: Shoulder pain. PRIOR SURGERY: None reported. COMPARISON PLAIN FILMS: 07 August 2024 COMPARISON CROSS-SECTIONAL IMAGING STUDIES: None available at time of interpretation. TECHNICAL: Axial, sagittal oblique and coronal oblique T1, PD, PD FS and T2-weighted images. Right shoulder. FINDINGS: GLENOHUMERAL JOINT: Effusion/Cyst: Moderately large effusion with strandy diffuse moderately prominent synovitis and synovial thickening however no inflammatory arthritis erosion is appreciated. No paralabral or periarticular cyst or ganglion. Humeral Head Articular Cartilage: Up to grade 4 cartilage loss with patchy subchondral sclerosis and edema and bulky inferior marginal osteophytes. Glenoid Articular Cartilage: Up to grade 4 cartilage loss with relative sparing anteriorly. Very slight retroversion of the glenoid fossa. Normal bone depth centrally. Small marginal osteophytes. Loose Bodies: No appreciable loose bodies. Capsule: No convincing evidence of adhesive capsulitis or capsular injury. OSSEOUS STRUCTURES: No fracture, marrow edema or marrow replacement process. CORACOACROMIAL ARCH: Acromial Morphology: Type 1 acromial morphology. No abnormal lateral or anterior downward sloping of the acromion. No os acromiale. No significant subacromial spur. Lateral acromial thickness is 7 mm. Acromiohumeral Interval: The acromiohumeral interval is adequately patent. At its narrowest, the interval measures 8 mm. No abnormal thickening of the coracoacromial ligament. Coracohumeral Interval: The coracohumeral interval is normal. At its narrowest, the coracohumeral interval measures 9 mm. Coracoid index is 13 mm. ACROMIOCLAVICULAR JOINT REGION: AC Joint: Mild degenerative arthrosis with capsular edematous hypertrophy and shallow subchondral cysts and edema. No significant inferior osteophyte. No joint space widening. Ligaments: The coracoclavicular ligaments are intact. BURSAE: Subacromial-Subdeltoid: No abnormal bursal edema, thickening or bursal fluid. Subcoracoid: No abnormal bursal edema, thickening or bursal fluid. ROTATOR CUFF TENDONS AND MUSCLES AND DELTOID: Supraspinatus: Hazy patchy disorganized intermediate signal tendinosis. No significant tear. No atrophy or edema in the muscle. Infraspinatus: Mild intermediate signal tendinosis without tear. No atrophy or edema in the muscle. Teres Minor: No tendinosis, tendon tearing, muscle atrophy or muscle edema. Subscapularis: Mild tendinosis substance and articular surface with some shallow fraying. No high-grade partial or full-thickness tear. No atrophy or edema in the muscle. Deltoid: Mild type 1 fatty infiltration atrophied posterolateral bundle with relative sparing anteriorly. BICEPS TENDON, LONG HEAD: Avulsion of the biceps from the anchor. Intermediate signal thickened remnant above the bicipital groove. Fluid and synovitis distend the tendon sheath with low caliber extra-articular tendon. GLENOID LABRUM: Small indistinct blunted labrum with circumferential marginal tearing and mucoid change. No linear tear or displacement. OTHER FINDINGS: There is no abnormality within the suprascapular or spinoglenoid notches nor within the quadrilateral space. No axillary adenopathy or mass. IMPRESSION: 1. Severe glenohumeral osteoarthritis. Associated mucoid degeneration and degenerative marginal tearing of the glenoid labrum. Associated moderate-sized joint effusion with prominent reactive synovitis. 2. Full-thickness tear of the biceps from the anchor. Apparently scarred in intra-articular tendon above the bicipital groove has prominent tendinosis appearance. Extra-articular biceps tenosynovitis. 3. Tendinosis without significant tearing supraspinatus, subscapularis and infraspinatus. 4. Mild AC DJD. Dictated by Daryl Ch MD @ 08/16/2024 11:43:03 AM (Electronically Signed)
== END 2024-08-16 09:19 | disposition home or self-care (01) ==
LOC: MRI 09:18
PROVIDERS: PCP Family Medicine; Visit Provider Family Medicine
DX: M25.511 Pain in right shoulder (principal); M19.011 Primary osteoarthritis, right shoulder; S46.211A Strain of muscle, fascia and tendon of other parts of biceps, right arm, initial encounter; M75.101 Unspecified rotator cuff tear or rupture of right shoulder, not specified as traumatic
CPT/HCPCS: 73221

== ENCOUNTER 2024-08-22 14:08 | Outpatient (CLI) | payer MEDICARE, SELFPAY | END 2024-08-22 14:09 | disposition home or self-care (01) | LOC: RAD 14:09 | PROVIDERS: PCP Family Medicine; Visit Provider Physician Assistant | DX: C50.811 Malignant neoplasm of overlapping sites of right female breast (principal); M89.9 Disorder of bone, unspecified; E27.8 Other specified disorders of adrenal gland; K42.9 Umbilical hernia without obstruction or gangrene | CPT/HCPCS: 78815; A9552 ==

== ENCOUNTER 2024-08-28 13:52 | Outpatient (CLI) | payer MEDICARE, SELFPAY | END 2024-08-28 13:53 | disposition home or self-care (01) | LOC: CT 13:53 | PROVIDERS: PCP Family Medicine; Visit Provider Orthopaedic Surgery Sports Medicine | DX: Z01.818 Encounter for other preprocedural examination (principal); M19.011 Primary osteoarthritis, right shoulder; M67.813 Other specified disorders of tendon, right shoulder | CPT/HCPCS: 73200 ==

== ENCOUNTER 2024-09-09 08:58 | Outpatient (CLI) | payer MEDICARE, SELFPAY | END 2024-09-09 08:59 | disposition home or self-care (01) | PROVIDERS: PCP Family Medicine; Visit Provider Physician Assistant | DX: R22.2 Localized swelling, mass and lump, trunk (principal); C50.911 Malignant neoplasm of unspecified site of right female breast | CPT/HCPCS: 76604 ==

== ENCOUNTER 2024-09-23 06:56 | Day surgery (SDC) | payer MEDICARE, SELFPAY ==
[2024-09-23] VITALS (27 sets, daily range): BP systolic 97–148; BP diastolic 60–95; PULSE 62–95; RESP 16–20; TEMP 35.9–36.9; O2SAT 87–99; BMI 29.8
[2024-09-23] MEDS: ACETAMINOPHEN 500 MG TABLET 1000 MG PO ×3 (07:13→20:38)
--- NOTE | 2024-09-23 07:39 | W.PM.H&PU ---
History & Physical Update History & Physical Update H&P Updates: She continues to smoke. Otherwise, no changes noted.
[2024-09-23] MEDS: LACTATED RINGERS 1000 ML 1,000 ML 100 ML IV ×2 (08:28→11:42)
[2024-09-23] MEDS: SODIUM CHLORIDE 0.9 % (FLUSH) 10 ML SYRINGE IVF (08:28)
--- NOTE | 2024-09-23 08:30 | SUR.PREOP ---
TIME?OUT:?8:30, right shoulder PT/RN/MDA?VERIFICATION?OF?SURGICAL?SITE,?PROCEDURE,?AND?CONSENT OBTAINED?PRIOR?TO?INVASIVE?PROCEDURE.
[2024-09-23] MEDS: MIDAZOLAM HCL 1 MG/ML inj IVP (08:33)
[2024-09-23] MEDS: fentaNYL 100 MCG/2 ML inj IVP (08:33)
--- NOTE | 2024-09-23 08:51 | CRLHL7_ITS ---
For Patients: As a result of the Cures Act, medical imaging exams and procedure reports are released immediately into your electronic medical record. You may view this report before your referring provider. If you have questions, please contact your health care provider. Indication: Post op Technique: Two views right shoulder Findings/Impression: Hardware from a right shoulder arthroplasty is in satisfactory position. Bone alignment is normal. No sign of acute fracture. Postop changes are within normal limits. Dictated by Conner Estrella MD @ 09/23/2024 12:22:41 PM (Electronically Signed)
[2024-09-23] MEDS: CEFAZOLIN 2 GM in 0.9 % SODIUM CHLORIDE Mini-bag 100 ML IVPB (08:55)
[2024-09-23] MEDS: TRANEXAMIC ACID 100 MG/ML INJ 1000 MG IV (08:58)
--- NOTE | 2024-09-23 09:31 | P.NB_ITS ---
Nerve Block Nerve Block Time Seen by Provider: 08:33 Date Seen: 09/23/24 Type of block requested by surgeon for post-operative analgesia: supraclavicular Side: right Time out performed: Yes Verification of patient name: Yes Verification of date of : Yes Site marking: site marked Name of person performing procedure: Deyvi Continuous monitoring Was continuous monitoring of O2 sat, B/P, quality assurance monitor body, recorded every 15 minutes?: Yes Procedure Checklist: sterile prep, needles and gloves Ultrasound guided. Images saved: Yes Medications given in 5ml increments after negative aspiration: Ropivicaine %: 0.5 mL: 20 Needle gauge: 22 Precedex (mcg): 25 Patient tolerated procedure well: Yes Block Charges Block Charge (with Pro Fee): Brachial Plexus Use of Ultrasound Machine for Block: Yes- US Guidance/pain block
--- NOTE | 2024-09-23 09:31 | P.ANES_ITS ---
Anesthesia Charges Start Date/Time Anesthesia Start Date: 09/23/24 Anesthesia Start Time: 08:40 Stop Date/Time Anesthesia Stop Date: 09/23/24 Anesthesia Stop Time: 11:14 Coding CPT Codes CPT Codes: ANESTH SHOULDER REPLACEMENT - 35132 ([id number]) P3 - PATIENT W/SEVERE SYS DISEASE, QK - HOME CARE MANAGER 2-4 CNCRNT ANES PROC, QX - FABRIC WORKER FOREMAN SVC W/ MD MED DIRECTION
--- NOTE | 2024-09-23 09:31 | W.ANESCHARGE ---
Anesthesia Charges Start Date/Time Anesthesia Start Date: 09/23/24 Anesthesia Start Time: 08:40 Stop Date/Time Anesthesia Stop Date: 09/23/24 Anesthesia Stop Time: 11:14 Coding CPT Codes CPT Codes: ANESTH SHOULDER REPLACEMENT - 52906 ([id number]) P3 - PATIENT W/SEVERE SYS DISEASE, QK - STOREROOM SUPERVISOR 2-4 CNCRNT ANES PROC, QX - GRADES 1 6 TUTOR SVC W/ MD MED DIRECTION
--- NOTE | 2024-09-23 10:43 | P.ORPRC_ITS ---
Procedure Note Date of procedure: 09/23/24 Procedure: PREOPERATIVE DIAGNOSIS: 1. Right shoulder osteoarthrosis, primary, severe with fair rotator cuff 2. Right long head of the biceps tendinopathy and tenosynovitis POSTOPERATIVE DIAGNOSIS: 1. Right shoulder osteoarthrosis, primary, severe with fair rotator cuff 2. Right long head of the biceps tendinopathy and tenosynovitis PROCEDURE: 1. Right reverse shoulder arthroplasty. 2. Right long head of biceps open tenodesis SURGEON: Yuri Mendoza MD. RECRUITMENT INTERN: Jamal Verma PA-C - Of note, a skilled pediatric dental assistant was critical for this case to aid in patient positioning, tissue retraction, limb manipulation/positioning, retraction for glenoid exposure, which was challenging, awareness and protection of critical structures, and closure. ANESTHESIA: General plus supraclavicular block EBL: 150 ml IMPLANTS: DJ0 surgical Altivate humeral stem size 10 small shell, short with P2 porous coating vitamin E neutral poly small socket insert RSP glenoid base plate P2 porous coating with 3 perimeter locking screws 32 neutral glenosphere with retaining screw COMPLICATIONS: None evident INDICATIONS: The patient is a pleasant 68yo Female who has experienced severe right shoulder pain and difficulty with use. Workup included imaging which revealed severe osteoarthrosis along with concern for rotator cuff quality. Physical exam was consistent with associated pain. Given the deformity, the dysfunction, and the pain, and failure of nonoperative management, recommendation was made for surgery. DESCRIPTION OF PROCEDURE: Following a thorough discussion of risks, benefits, and alternatives, consent was obtained and the left shoulder was marked. The patient was brought to the operating room and placed supine on the operating table. Induction of anesthesia was undertaken. 1 g IV Ancef and 1 g tranexamic acid was administered within 1 hr of incision preoperatively. Appropriate time- out was performed identifying proper patient, site, and procedure. The operative extremity was prepped and draped in the appropriate sterile fashion using ChloraPrep after the patient was positioned in the lazy beach chair position with head in neutral alignment and all bony prominences well padded. A longitudinal incision was made for deltopectoral approach. Deltoid was retracted laterally. Cephalic vein was identified and retracted laterally as well. Vein was spared/protected throughout the case. The clavipectoral fascia was identified and divided longitudinally staying lateral to the conjoined tendon / coracoid. The conjoined tendon was protected with a blunt Hohmann. The long head of the biceps tendon was identified and the bicipital sheath released. The upper 1/4 of the pectoralis major was also released from its insertion. The long head of the biceps was tenodesed to the pectoralis major tendon. The remaining proximal tendon tissue was excised. The rotator cuff was inspected and found to have good integrity with the subscapularis but fair integrity with a supraspinatus], and a decision for a reverse shoulder arthroplasty was confirmed. The long head of biceps, of note, was significant flattened, thickened, with abundant tenosynovitis. A subscapularis cuff of tissue was left via tenotomy for later repair with the remaining subscapularis released in a subperiosteal fashion with the Bovie. This was tagged for later repair. The 3 sisters were cauterized. The upper subscapularis was released from the capsule with a curved Jarvis scissors towards the glenoid. The inferior subscapularis was divided from the capsular tissue on its caudal surface with particular caution for the axillary nerve. This was palpated anterior to the subscapularis both prior to and near the finish of the case. Inferior humeral head osteophytes were excised with caution taken throughout the case with regards to the axillary nerve. The humerus was dislocated, and humeral head cut completed. Then a protector plate was applied. We turned our attention to the glenoid. The humerus was retracted posteriorly. The subscap was protected anteriorly and the labrum/long head biceps origin was excised circumferentially. The capsule was released along the anterior and inferior portions of the glenoid cautiously with a Oneill elevator being careful not to penetrate deep. The glenoid had appropriate exposure, and was prepared with the cannulated system with a target of approximately 5-10? of inferior tilt and neutral anteversion (patient had 12? of retroversion initially). Utilizing the match Point 3D printed guide, the guide pin was placed. The 3D printed jig removed and after placing the guide pin, the tap was placed followed by the glenoid reaming. The real base plate was opened, and inserted, and excellent compression/purchase was achieved with the central screw. Peripheral screws were then drilled, measured, and placed. The glenosphere was then placed consistent with the preoperative plan utilizing the above noted glenosphere. After securing the glenosphere with the locking, torque limited screw, attention was turned back to the humerus. A canal finder was placed followed by various reamers by hand. The real humeral stem was then opened and inserted with excellent metaphyseal fit and stability. Trial poly was placed and the shoulder reduced. Excellent reduction and stability achieved with appropriate tension on the conjoined tendon. At this stage, trial implants were removed, and the real implants inserted and the shoulder reduced. A 3 minute Betadine soak was performed followed by a thorough irrigation with normal saline. Subscapularis was repaired with #1 PDS to the cuff of tissue on the lesser tuberosity. Excellent reapproximation of tissue achieved. Hemostasis was found to be appropriate. The deltopectoral interval was reapproximated with 0 Vicryl, subcutaneous and subcuticular closure was then performed with number 2-0 Vicryl and 4-0 Monocryl, respectively. A skilled pediatric dental assistant was critical for this case to aid in patient positioning, tissue retraction, limb manipulation/positioning, retraction for glenoid exposure, which was challenging, awareness and protection of critical structures, and closure. PLAN: 1. Sling at all times for the operative upper extremity. 2. AROM of elbow, forearm, wrist, and digits as tolerated. 3. PT/OT consults for education and assistance. 4. Social consult for discharge planning. 5. 23 hr perioperative antibiotics. 6. Early ambulation, and SCDs for DVT prophylaxis. 7. Admit to the hospital for the above 8. Analgesics p.r.n.
--- NOTE | 2024-09-23 11:22 | W.ANESCHARGE ---
Anesthesia Charges Start Date/Time Anesthesia Start Date: 09/23/24 Anesthesia Start Time: 08:40 Stop Date/Time Anesthesia Stop Date: 09/23/24 Anesthesia Stop Time: 11:14
--- NOTE | 2024-09-23 11:29 | SUR.PHASEI ---
Patient came to PACU awake, IV in left hand was swollen. DISTANCE LEARNING ADMINISTRATOR started IV in left foot. Hand warm, only thumb is tingling. Patient able to wiggle fingers. States comfortable, denies pain or nausea.
--- NOTE | 2024-09-23 11:48 | SUR.PHASEI ---
Patient was taken off oxygen but oxygen saturation dropped to 88% so put oxygen back on.
[2024-09-23] MEDS: ONDANSETRON 2 MG/ML inj 4 MG IVP (11:56)
--- NOTE | 2024-09-23 12:08 | SUR.PHASEI ---
Patient received one dose of Fentanyl and one dose of Zofran in PACU. Meets discharge criteria from PACU
--- NOTE | 2024-09-23 13:30 | PM.IMCN1 ---
Date of Consult Consult date: 09/23/24 Requesting Physician: Orthopedics Primary Care Provider: Lino Scales MD Consult Narrative Reason for consult: Narrative: HOSPITALIST CONSULT PROCEDURE: 1. Right reverse shoulder arthroplasty. 2. Right long head of biceps open tenodesis SURGEON: Yuri Mendoza MD. ANESTHESIA: General plus supraclavicular block EBL: 150 ml COMPLICATIONS: None evident The hospital medicine team was asked by the orthopedic surgery team to manage the patient's COPD, depression, hyperlipidemia. There have been no perioperative complications. Dr. Scales, PCP I have updated and reviewed the active medical problems, past medical history, past surgical history, social history, allergies and medications in our electronic EMR. This includes a cross reference to care everywhere in [facility] and with [facility] databases. PHYSICAL EXAM: CODE STATUS: FULL CODE CONSTITUTIONAL: Conversive, good historian. A/O. Knows setting and context. VITAL SIGNS: see record. HEENT: Normocephalic, atraumatic. PERRL, EOMI, conjunctivae pink, no scleral icterus. Ears and nose externally normal. Pharynx normal. NECK: No JVD. No carotid bruit, no thyromegaly, no adenopathy. CHEST: Clear to auscultation bilaterally HEART: S1 and S2 normal. ABDOMEN: Flat, soft, nontender. Normal bowel sounds. Moderately obese. EXTREMITIES: No edema. MUSCULOSKELETAL: right shoulder SDI; no obvious hematoma; bleeding. NEURO: Cranial nerves intact. Mentation normal. Normal affect. SKIN: No rashes, petechiae, concerning changes PSYCHIATRIC: Mentation normal. INVESTIGATIONS: EMR Reviewed; Pre-OP Reviewed DISPOSITION: DVT: N/A GI: PO intake [facility] Medical History (Updated 09/23/24 @ 13:39 by Sonya Walker MD) Depression ?F32.A - Depression, unspecified (ICD-10) Vaccination declined ?Z28.21 - Immunization not carried out because of patient refusal (ICD-10) Complication of ostomy Abdominal wall hernia ?K43.9 - Ventral hernia without obstruction or gangrene (ICD-10) Osteoarthritis of left knee ?M17.12 - Unilateral primary osteoarthritis, left knee (ICD-10) Cervical radiculopathy ?M54.12 - Radiculopathy, cervical region (ICD-10) Gastritis ?K29.70 - Gastritis, unspecified, without bleeding (ICD-10) Right shoulder pain ?M25.511 - Pain in right shoulder (ICD-10) Osteoarthritis of right shoulder ?M19.011 - Primary osteoarthritis, right shoulder (ICD-10) Arthritis of right acromioclavicular joint ?M19.011 - Primary osteoarthritis, right shoulder (ICD-10) Tendinosis of right rotator cuff ?M67.813 - Other specified disorders of tendon, right shoulder (ICD-10) Hypertension ?I10 - Essential (primary) hypertension (ICD-10) Peripheral neuropathy ?G62.9 - Polyneuropathy, unspecified (ICD-10) Excessive drinking of alcohol ?F10.10 - Alcohol abuse, uncomplicated (ICD-10) Tobacco dependence syndrome ?F17.200 - Nicotine dependence, unspecified, uncomplicated (ICD-10) Osteopenia (06/2021) ?M85.80 - Other specified disorders of bone density and structure, unspecified site (ICD-10) Obstructive sleep apnea syndrome (2016) ?G47.33 - Obstructive sleep apnea (adult) (pediatric) (ICD-10) Malignant neoplasm of right breast (04/07/15) ?C50.911 - Malignant neoplasm of unspecified site of right female breast (ICD-10) Ileostomy present (08/2021) ?Z93.2 - Ileostomy status (ICD-10) Hypokalemia ?E87.6 - Hypokalemia (ICD-10) History of open sigmoidectomy (08/2021) ?Z98.890 - Other specified postprocedural states (ICD-10) ?Z90.49 - Acquired absence of other specified parts of digestive tract (ICD-10) Elevated liver function tests ?R79.89 - Other specified abnormal findings of blood chemistry (ICD-10) Diverticulitis of intestine with perforation and abscess ?K57.80 - Diverticulitis of intestine, part unspecified, with perforation and abscess without bleeding (ICD-10) Chronic obstructive pulmonary disease ?J44.9 - Chronic obstructive pulmonary disease, unspecified (ICD-10) Alcohol dependence ?F10.20 - Alcohol dependence, uncomplicated (ICD-10) Acute respiratory failure with hypoxia ?J96.01 - Acute respiratory failure with hypoxia (ICD-10) Surgical History (Updated 09/23/24 @ 13:39 by Sonya Walker MD) S/P small bowel resection ?Z90.49 - Acquired absence of other specified parts of digestive tract (ICD-10) History of partial knee replacement ?Z96.659 - Presence of unspecified artificial knee joint (ICD-10) Status post reverse arthroplasty of right shoulder ?Z96.611 - Presence of right artificial shoulder joint (ICD-10) Status post right partial knee replacement (~2010) ?Z96.651 - Presence of right artificial knee joint (ICD-10) S/P trigger finger release (08/22/22) ?Z98.890 - Other specified postprocedural states (ICD-10) S/P left knee arthroscopy (01/11/05) ?Z98.890 - Other specified postprocedural states (ICD-10) S/P right knee arthroscopy (11/14/06) ?Z98.890 - Other specified postprocedural states (ICD-10) H/O ileostomy ?Z98.890 - Other specified postprocedural states (ICD-10) Status post surgery involving ear ?Z98.890 - Other specified postprocedural states (ICD-10) Status post laparoscopic cholecystectomy (2015) ?Z90.49 - Acquired absence of other specified parts of digestive tract (ICD-10) History of hysterectomy (1990) ?Z90.710 - Acquired absence of both cervix and uterus (ICD-10) History of colonoscopy (08/13/20) ?Z98.890 - Other specified postprocedural states (ICD-10) History of bilateral mastectomy (06/2015) ?Z90.13 - Acquired absence of bilateral breasts and nipples (ICD-10) History of arthroscopy of right knee (08/07/07) ?Z98.890 - Other specified postprocedural states (ICD-10) History of arthroscopy of left knee (10/12/17) ?Z98.890 - Other specified postprocedural states (ICD-10) History of appendectomy (08/11/21) ?Z90.49 - Acquired absence of other specified parts of digestive tract (ICD-10) Family History Mother Alzheimers disease Heart disease Father Stroke Heart disease Unknown Crohn's disease Other Cervical cancer Social History Narrative: excessive consumption of ethanol- 6 pack/day exercises 5-6 times per week- garden, walks dog , 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), 3 kids tobacco abuse- 1 pack/day, 30 years What is your current living situation?: I presently have a place to live Problems where you live: no known problems Problems where you live details: none In the past 12 months, utilities in danger of being shut off: no In past 12 months, lack of transportation kept you from medical appts, meetings, work, or getting things needed for daily living: no In the past 12 mos, have been you worried that your food would run out before you had money to buy more?: never true In the past 12 mos, the food you bought just didn't last and you didn't have money to buy more?: never true Highest level of school completed/degree received: high school graduate Smoking Status: Current every day smoker What tobacco products do you use: cigarettes Smoking packs per day: 1 Smoking cigarettes per day: 20.0 Years smoked: 20 Smoking pack-years: 20.00 Second hand tobacco smoke exposure: Yes How often do you have a drink containing alcohol: 4 or more times a week Alcohol type: beer How many standard drinks containing alcohol do you have on a typical day: 3 or 4 How often do you have six or more drinks on one occasion: Monthly AUDIT-C Alcohol total score: 7 Non-prescribed substance use: denies use Caffeine: Yes (2 cups of coffee a day) How often does anyone, including family, friends and others, physically hurt you: never How often does anyone, including family, friends and others, insult or talk down to you: never How often does anyone, including family, friends and others, threaten you with harm: never How often does anyone, including family, friends and others, scream or curse at you: never service: No Meds Home Medications and Allergies Home Medications ?Medication ?Instructions ?Recorded ?Confirmed ?Type acetaminophen 500 mg tablet 500 - 1,000 mg PO Q6H PRN 08/29/23 09/23/24 History Allergies Allergy/AdvReac Type Severity Reaction Status Date / Time oxycodone Allergy Severe Anaphylaxis, Verified 09/23/24 07:22 hives, throat swelling amoxicillin Allergy Intermediate N&V Verified 09/23/24 07:22 hydrocodone Allergy Mild Rash Verified 09/23/24 07:22 varenicline Allergy Mild aggression Verified 09/23/24 07:22 clavulanic acid Allergy Unknown Nausea Verified 09/23/24 07:22 tramadol AdvReac severe Verified 09/23/24 07:22 itching Exam Const: Vital Signs, click to edit/add: Vital Signs - 24 hr 09/23/24 07:46 09/23/24 08:33 09/23/24 11:10 Temperature 98.4 F 98.1 F Pulse Rate 77 71 71 Respiratory Rate 20 20 16 Blood Pressure 148/95 H 114/91 H 116/67 Pulse Oximetry 96 95 91 Oxygen Delivery Me thod Room Air Nasal Cannula Room Air Oxygen Flow Rate 3 09/23/24 11:15 09/23/24 11:20 09/23/24 11:25 Temperature Pulse Rate 70 66 62 Respiratory Rate 20 20 20 Blood Pressure 108/64 114/65 108/61 Pulse Oximetry 87 L 95 95 Oxygen Delivery Me thod Nasal Cannula Nasal Cannula Nasal Cannula Oxygen Flow Rate 3 3 3 09/23/24 11:30 09/23/24 11:35 09/23/24 11:40 Temperature Pulse Rate 63 65 75 Respiratory Rate 19 17 17 Blood Pressure 101/60 101/67 106/64 Pulse Oximetry 95 88 95 Oxygen Delivery Me thod Nasal Cannula Room Air Nasal Cannula Oxygen Flow Rate 3 0 3 09/23/24 11:45 09/23/24 11:50 09/23/24 11:55 Temperature 98.1 F Pulse Rate 69 69 67 Respiratory Rate 17 17 16 Blood Pressure 106/64 109/68 109/63 Pulse Oximetry 95 95 99 Oxygen Delivery Me thod Nasal Cannula Nasal Cannula Oxygen Flow Rate 3 3 09/23/24 12:00 09/23/24 12:05 09/23/24 12:16 Temperature 96.6 F L Pulse Rate 66 66 79 Respiratory Rate 16 16 18 Blood Pressure 112/65 107/63 111/69 Pulse Oximetry 99 98 92 Oxygen Delivery Me thod Nasal Cannula Nasal Cannula Nasal Cannula Oxygen Flow Rate 3 3 1 09/23/24 12:30 09/23/24 12:45 09/23/24 13:00 Temperature 97.6 F 97.1 F L 97 F L Pulse Rate 77 81 79 Respiratory Rate 16 18 18 Blood Pressure 111/60 110/66 106/67 Pulse Oximetry 93 90 92 Oxygen Delivery Me thod Nasal Cannula Nasal Cannula Nasal Cannula Oxygen Flow Rate 0.5 0.5 0.5 Assessment and Plan Assessment and plan (1) Status post reverse arthroplasty of right shoulder: Problem comment: 09/24/24 - Dr. Ballard Status: Acute Assessment and Plan: Hospital medicine team is happy to follow the patient through to discharge. We are expecting a routine postoperative course. I have reconciled home medications and completed our part of the discharge. -I will hold antihypertensives as indicated per our practice standard -I will spot check oxygen sats as there is a concern for hypoxia (anesthesia, JONE, COPD, etc) (2) Chronic obstructive pulmonary disease: Status: Acute (3) Peripheral neuropathy: Status: Acute (4) Depression: Status: Acute (5) Obstructive sleep apnea syndrome: Status: Acute (6) Hypertension: Status: Acute (7) Tobacco use: Status: Acute (8) Excessive drinking of alcohol: Status: Acute (9) Tobacco dependence syndrome: Status: Acute
[2024-09-23] MEDS: LACTATED RINGERS 1000 ML 1,000 ML 75 ML IV (13:38)
[2024-09-23] MEDS: GABAPENTIN 300 MG CAPSULE PO ×2 (14:26→20:39)
[2024-09-23] MEDS: CEFAZOLIN 1 GM in 0.9 % SODIUM CHLORIDE Mini-bag 100 ML IVPB ×2 (14:39→22:47)
--- NOTE | 2024-09-23 16:10 | PC.NURSE ---
End of shift note: Patient arrived to the unit at 1216. VS WNL and afebrile. AxO. Denies pain and N/V at this time. IV patent and intact in the L foot. IV in L hand is SL, hand is puffy and nonpitting, ice pack applied. IV infiltrated in L wrist was discontinued and tip intact. Ice pack applied to the op right shoulder. Shoulder is elevated and dressing is C/D/I.
[2024-09-23] MEDS: SENNOSIDES 1 TAB TABLET 2 TAB PO (20:38)
[2024-09-23] MEDS: ATORVASTATIN CALCIUM 10 MG TABLET PO (20:39)
[2024-09-23] MEDS: CITALOPRAM HYDROBROMIDE 20 MG TABLET 10 MG PO (20:39)
--- NOTE | 2024-09-23 22:27 | PC.NURSE ---
Patient arrived to floor after right shoulder surgery. No reports of nausea, no pain reported, up ambulating in room independently. Patient voiding and pain adequately managed with scheduled medications and ice therapy. Vitally stable. Nursing to continue to monitor.
[2024-09-24] MEDS: HYDROmorphone 2 MG TABLET PO ×2 (01:47→07:55)
[2024-09-24] MEDS: 0.9 % SODIUM CHLORIDE 500 ML IV (01:54)
[2024-09-24] MEDS: ACETAMINOPHEN 500 MG TABLET 1000 MG PO ×2 (02:55→08:46)
[2024-09-24 03:00] VITALS: BP 122/79; PULSE 74; RESP 16; TEMP 36.4; O2SAT 92
[2024-09-24] MEDS: CEFAZOLIN 1 GM in 0.9 % SODIUM CHLORIDE Mini-bag 100 ML IVPB (06:41)
[2024-09-24 07:12] LABS: Hematocrit 36.2 % (33.0-51.0); Mean Corpuscular HGB Conc 33 gm/dL (32-36); Mean Corpuscular Hemoglobin 34 pg (26-34); Mean Corpuscular Volume 102 fL (80-100); Platelet Count* 277 K/uL (140-440); Red Blood Count 3.54 m/uL (4.00-5.20); White Blood Count* 14.65 K/uL (4.50-11.00)
[2024-09-24 07:18] LABS: Slide Review Reflex No
[2024-09-24 07:30] VITALS: BP 128/73; PULSE 80; RESP 18; TEMP 37.6; O2SAT 94
[2024-09-24 07:34] LABS: Sodium* 136 mmol/L (135-149)
[2024-09-24 07:35] LABS: Potassium* 3.6 mmol/L (3.6-5.1)
[2024-09-24 07:38] LABS: Blood Urea Nitrogen* 16 mg/dL (7-30); Creatinine* 1.1 mg/dL (0.5-1.5); Est. Creatinine Clearance* 52.58; Estimated Glomerular Filt Rate 54 ml/min
[2024-09-24 08:00] VITALS: PULSE 80; RESP 18; O2SAT 94
[2024-09-24] MEDS: GABAPENTIN 300 MG CAPSULE PO (08:47)
[2024-09-24] MEDS: SENNOSIDES 1 TAB TABLET 2 TAB PO (08:47)
[2024-09-24] MEDS: OMEPRAZOLE 20 MG CAPSULE DR PO (08:48)
--- NOTE | 2024-09-24 09:59 | PC.NURSE ---
Addendum entered by Guillermina Estrada RN 09/24/24 10:49: Discharged at 1031: patient ambulated ind to car with . Belongings sheet and discharge instructions gone through and signed. Both ice packs with pt. Original Note: Nurse Note: Pt denies N/V/SOB. AxO. afebrile. Rates pain at a 7, pain med offered and administered with relief. VS WNL. Patient had a IV in left hand and foot. Both IVs removed and tips intact. Tolerating regular diet and voiding. Ambulates SBA.
--- NOTE | 2024-09-24 15:51 | PM.ORPN ---
Subjective Subjective Time Seen by Provider: 08:30 Date Seen: 09/24/24 Principal diagnosis: Status postop day 1 right reverse total shoulder arthroplasty Interval history: Patient reports doing well. No acute events over night. Pain managed with scheduled and PRN medications, ice. Receiving oral Dilaudid for pain. DVT prophylaxis: SCDs, walking. Denies fevers, chills, aches, N/V, CP, SOB/REYNAGA, or lightheadedness. Ortho Exam Narrative Exam Narrative: -Patient appears comfortable in recliner; no apparent acute distress -Alert and oriented times 3 -Operative shoulder swollen; soft, supple tissues; no obvious erythema. Ecchymosis minimal. Warmth appropriate. Ice pack present -Surgical dressing clean, dry, intact; no obvious drainage, no erythematous streaking peripheral to the bandage -Bilateral calves soft and supple; no significant swelling, edema, tenderness, erythema, discoloration, warmth, or palpable cords -2+ radial pulse, intact dermatomes and myotomes distally (5/5 strength) Const Vital Signs, click to edit/add: Vital Signs - 24 hr 09/23/24 16:30 09/23/24 17:30 09/23/24 19:00 Temperature 97.5 F L 98.2 F Pulse Rate 89 95 Pulse Rate [Right] 75 Respiratory Rate 18 18 18 Blood Pressure 110/66 112/85 Blood Pressure [Left Arm] 117/72 Pulse Oximetry 91 92 92 Oxygen Delivery Method Room Air Room Air Room Air 09/23/24 23:00 09/23/24 23:00 09/23/24 23:00 Temperature 97.8 F Pulse Rate Pulse Rate [Right] 68 68 Respiratory Rate 16 Blood Pressure Blood Pressure [Left Arm] 115/73 Pulse Oximetry 92 92 Oxygen Delivery Method Room Air 09/23/24 23:00 09/24/24 03:00 09/24/24 07:30 Temperature 97.5 F L 99.7 F H Pulse Rate Pulse Rate [Right] 74 80 Respiratory Rate 16 16 18 Blood Pressure Blood Pressure [Left Arm] 122/79 128/73 Pulse Oximetry 92 92 94 Oxygen Delivery Method Room Air Room Air Room Air 09/24/24 08:00 09/24/24 08:00 09/24/24 08:00 Temperature Pulse Rate Pulse Rate [Right] 80 Respiratory Rate 18 18 Blood Pressure Blood Pressure [Left Arm] Pulse Oximetry 94 94 Oxygen Delivery Method Room Air Assessment and Plan Assessment and plan (1) Status post reverse arthroplasty of right shoulder: Problem details: 09/24/24 - Dr. Ballard Status: Acute (2) Chronic obstructive pulmonary disease: Status: Acute (3) Peripheral neuropathy: Status: Acute (4) Depression: Status: Acute (5) Obstructive sleep apnea syndrome: Status: Acute (6) Hypertension: Status: Acute (7) Tobacco use: Status: Acute (8) Excessive drinking of alcohol: Status: Acute (9) Tobacco dependence syndrome: Status: Acute Plan - Complete 23 hour perioperative antibiotics. - PT/OT consult for education and assistance. - Social work consult for discharge planning - Prescribed analgesics as needed - DVT prophylaxis: Walking, and SCDs. Refrain from smoking cigarettes. - Anticipation is for discharge to home with family/friends today 09/24/2024 if the patient remains medically stable, pain is controlled, and they are safe with mobilization. - patient agrees to have her medications sent to [facility] since they do not have the right dose of hydromorphone at her primary pharmacy.
== END 2024-09-24 10:31 | disposition home or self-care (01) ==
LOC: OR 06:58 → MEDSURG 06:58
PROVIDERS: PCP Family Medicine; Visit Provider Orthopaedic Surgery Sports Medicine
PROC: 0RRJ0JZ Replacement of Right Shoulder Joint with Synthetic Substitute, Open Approach (ICD-10-PCS; CPT 23472; principal; 2024-09-23 09:00)
DX: M19.011 Primary osteoarthritis, right shoulder (principal); M75.21 Bicipital tendinitis, right shoulder; G89.18 Other acute postprocedural pain; G47.33 Obstructive sleep apnea (adult) (pediatric); J44.9 Chronic obstructive pulmonary disease, unspecified; M54.12 Radiculopathy, cervical region; I10 Essential (primary) hypertension; Z93.2 Ileostomy status; G62.9 Polyneuropathy, unspecified; F17.210 Nicotine dependence, cigarettes, uncomplicated; F10.20 Alcohol dependence, uncomplicated; F32.A Depression, unspecified; E78.5 Hyperlipidemia, unspecified
CPT/HCPCS: 23472; 23430; 01638; 36415; 64415; 73030; 76942; 82565; 84132; 84295; 84520; 85027; 97110; 97165; 97535; A9270; C1713; C1776; J0690; J1100; J2250; J2371; J2405; J2704; J2710; J2795; J3010; J7030; J7120

== ENCOUNTER 2024-12-04 11:15 | Outpatient (RCR) | payer MEDICARE, SELFPAY ==
--- NOTE | 2024-09-10 13:49 | OT.OPOE ---
OT Outpatient Ortho Eval OT Outpatient Ortho Eval* Start: 09/10/24 13:37 Freq: Status: Active Protocol: Document 09/10/24 13:38 CSS (Rec: 09/10/24 13:43 CSS [id number]) E-signed By Jessie Cadet OTR/L OT OP Ortho Eval Details Complexity Complexity Low Insurance Information Insurance Information [facility] Outpatient History/Precautions Current Condition/Medical Diagnosis Referring Provider Dr. Ballard Medical Diagnoses M19.011- primary osteoarthritis, right shoulder Treatment Diagnosis M25.511- pain in shoulder ( right) M25.611-shoulder instability( right) Medical Conditions Depression,CA,Metal Implants, Respiratory Medical/Functional History Medical History Reviewed Yes Prior Level of Function/Mobility indep with ADLs/IADLs at baseline Social History Employment Status Retired Ortho Subjective Subjective Subjective Pt reports she lives with spouse who is willing and able to assist as needed. Pain Assessment Pain Pain Yes OT Problems Problems Problems Decreased Strength,Decreased Range of Motion,Pain,Lifting, Gripping,Pinching Other Problems Opening Containers,Dressing, Fasteners,Sleeping Patient Potential Good Assessment Assessment Assessment Patient is a 68 year old female presenting to the clinic for a Pre-op OT Evaluation. Patient was pleasant, alert, orientated, asked great questions in session, was an active listener to information presented and showed signs of motivation/willingness to follow the presented protocol/ Post-op Instructions & HEP. In session today, patient was provided with resources and education as well as given handouts on the following topics: home modifications/ suggested set-up, potential DME needs and where to purchase items, fall prevention, home safety. The patient was a pleasure to work with today and reported at the end of session feeling more prepared for upcoming surgery. Occupational Therapy Treatment Plan - OP Potential Rehabilitation Potential Good Set Goals Goals Set with Patient Yes Goals Goals 1. Patient will be able to properly eric/doff her shoulder sling mod Independently. - goal met 2. Patient will demonstrate how to accurately perform her post-op HEP with use of handout (Modified Indep). - goal met Treatment Plan Treatment Plan Evaluation,Therapeutic Exercise,Self Care/Home Management Expected Frequency 1x Week Expected Duration 2-4 Weeks Home Program Home Program Home Program Initiated Home Program Specifics post op shoulder exercises Certification Certification Statement I Certify That: Therapy Services Provided, Therapy Plan Established, Therapy Plan Reviewed Certification Information Clinic ID # [id number] Initial Certification Date 09/10/24 Recertification Due Date 09/11/24 Provider Signature Required Yes Provider Signature Shows Agreement With POC & Medical Necessity Physician NPI Number Write NPI# Here Physician Comment/Change Comment or Changes Physician Signature & Date Requested Please Sign/Date Here
--- NOTE | 2024-10-07 12:42 | PT.OPEX ---
PT [place] [facility] Eval PT [facility] Outpatient Eval Start: 10/07/24 11:37 Freq: Status: Active Protocol: Document 10/07/24 11:40 [facility] (Rec: 10/07/24 12:38 [facility] [id number]) E-signed By Irving Link, PT Physical Therapy Outpatient Evaluation Insurance Information Insurance Name [facility] Medical Diagnosis R shoulder OA R bicep tendinopathy s/p R reverse TSA 09/23/24 Z96. 611 Treating Diagnosis Right shoulder pain M25.511 R shoulder stiffness M25.61 muscle weakness M62,81 impaired mobility Z74.[address] Yuri Mendoza Subjective Preferred Name Olesya Dacosta presents to PT 2 weeks x s/p R shoulder reverse TSA and biceps tenodesis. She is wearing the R shoulder sling 30/01 with the exception for bathing and doing the ex. She is only taking occasional advil for pain. She is still icing, prn. She is able to dress herself. She needs light assist with bathing sometimes . Challenging: cooking, doing the dishes. Pain Comments Right shoulder: max 7/10 at best: 2 Date of Last Physician Visit 10/01/24 Date of Surgery (If applicable) 09/23/24 Current Work Status Retired Occupation worked on [employer] Precautions Treatment Precautions/Contraindications PROM until 5 weeks post-op, then progress to AAROM Therapy Limitations/Systems Review Not Limited Objective Other/Pertinent Objective Posture: WNL, wearing R shoulder sling Right UE ROM: Passive Shoulder Flex; 110 deg ( after gentle PROM performed) Shldr ABD: 105 ER: 15 IR: 80 Elbow: flexion WNL extension: -10 deg supination: WNL pronation: ltd ~10% , end range pain Strength: NT due to post op precautions Functional Test Performed & Score QuickDASH: 66% disability Assessment Assessment/Impression 68 year old female presents 2 weeks s/p R shoulder reverse TSA and biceps tenodesis. Post op precautions include PROM x 5 weeks then progressing to AAROM. She is to be in the R shoulder immobilizer at all times with the exception of bathing and performing her HEP . Olesya presents with impaired PROM, as is to be expected post op. R shoulder ER is most limited movement. Elbow extension also limited by ~10 degrees likely due to wearing the sling and patient not fully straightening her elbow for HEP. I reinforced the importance of allowing R elbow to fully extend while stretching. Olesya will benefit from skilled PT for safe progression of R shoulder ROM and strengthening (when allowed) to facilitate return to functional use of her right (dominant) UE. Olesya is a smoker Primary Functional Limitations any activity involving use of her R UE: bathing, dressing, lift/reach, carry, push/pull, drive Plan of Care Rehabilitation Potential Excellent Physical Therapy Goals In 4-6 weeks, pt will: 1) Demo WNL PROM right shoulder in all directions for progression to next phase of rehab In 10-12 weeks, patient will: 2) Demo sufficient R shoulder AROM to be able to don bra and wash hair/behind back 3) Demo sufficient functional strength R shoulder to reach into overhead cabinet with R hand to retrieve 1 lb object 4) Improve QuickDASH score by at least 14 points to demo clinically significant improvement 5) Be I with self-management of residual symptoms and HEP to continue progression toward PLOF Coordination/Communication With Referral Source Treatment Plan/Direct Interventions Manual Therapy,Neuromuscular Re-ed,Self-Care/Home Management,Therapeutic Activities,Therapeutic Exercises Direct Interventions Clarification s/p R reverse TSA/biceps Comments tenodesis rehab protocol Frequency/Duration 2x/week for 6-8 weeks, 1-2x/ week for additional 3-4 weeks Patient Will Be Discharged From Therapy Completion of LTG(s), Independent w/HEP, Independently Progressing Evaluation Billing Untimed Code Treatment Minutes 20 Complexity Low Certification Information Initial Certification Date 10/07/24 Ending Certification Date 12/30/24 Provider Signature Required Yes Provider Signature Shows Agreement With POC & Medical Necessity Physician NPI Number Write NPI# Here Physician Comment/Change : Physician Signature & Date Requested Please Sign/Date Here
== END 2025-01-28 14:00 | disposition home or self-care (01) ==
PROVIDERS: PCP Family Medicine; Visit Provider Orthopaedic Surgery Sports Medicine
DX: Z48.89 Encounter for other specified surgical aftercare (principal); M19.011 Primary osteoarthritis, right shoulder; M67.813 Other specified disorders of tendon, right shoulder; Z96.611 Presence of right artificial shoulder joint; M25.511 Pain in right shoulder; Z51.89 Encounter for other specified aftercare
CPT/HCPCS: 97110; 97140; 97161; 97165; 97535

== ENCOUNTER 2024-12-12 11:10 | Outpatient (RCR) | payer MEDICARE, SELFPAY | END 2025-02-01 23:59 | disposition home or self-care (01) | LOC: CCIC 11:10 | PROVIDERS: PCP Family Medicine; Visit Provider Physician Assistant | DX: C50.911 Malignant neoplasm of unspecified site of right female breast (principal); Z17.0 Estrogen receptor positive status [ER+]; M25.511 Pain in right shoulder; Z72.0 Tobacco use; Z80.3 Family history of malignant neoplasm of breast; R63.4 Abnormal weight loss; Z92.21 Personal history of antineoplastic chemotherapy; Z90.13 Acquired absence of bilateral breasts and nipples | CPT/HCPCS: 99214; 99215; G0463 ==

== ENCOUNTER 2024-12-20 14:42 | Outpatient (CLI) | payer MEDICARE, SELFPAY | END 2024-12-20 14:43 | disposition home or self-care (01) | LOC: NFLDREF 12-24 02:05 | PROVIDERS: PCP Family Medicine; Referring Provider Family Medicine; Visit Provider Family Medicine | DX: R19.7 Diarrhea, unspecified (principal) | CPT/HCPCS: 87329; 87493 ==

== ENCOUNTER 2025-02-20 12:45 | Outpatient (CLI) | payer MEDICARE, SELFPAY | END 2025-02-20 12:46 | disposition home or self-care (01) | LOC: CT 12:45 | PROVIDERS: PCP Family Medicine; Visit Provider Orthopaedic Surgery Sports Medicine | DX: M19.012 Primary osteoarthritis, left shoulder (principal); Z01.818 Encounter for other preprocedural examination | CPT/HCPCS: 73200 ==

== ENCOUNTER 2025-03-24 08:28 | Day surgery (SDC) | payer MEDICARE, SELFPAY ==
[2025-03-24] VITALS (23 sets, daily range): BP systolic 103–185; BP diastolic 65–125; PULSE 65–92; RESP 14–20; TEMP 36.4–37.1; O2SAT 90–98; BMI 27.7
[2025-03-24] MEDS: ACETAMINOPHEN 500 MG TABLET 1000 MG PO ×2 (08:52→19:44)
[2025-03-24] MEDS: LACTATED RINGERS 1000 ML 1,000 ML 100 ML IV ×2 (09:20→13:45)
[2025-03-24] MEDS: SODIUM CHLORIDE 0.9 % (FLUSH) 10 ML SYRINGE IVF (09:20)
[2025-03-24] MEDS: MIDAZOLAM HCL 1 MG/ML inj IVP (11:34)
--- NOTE | 2025-03-24 11:44 | SUR.PREOP ---
TIME?OUT:?1130, left shoulder PT/RN/MDA?VERIFICATION?OF?SURGICAL?SITE,?PROCEDURE,?AND?CONSENT OBTAINED?PRIOR?TO?INVASIVE?PROCEDURE.
--- NOTE | 2025-03-24 13:02 | W.PM.H&PU ---
History & Physical Update History & Physical Update H&P Reviewed and patient assessed: No changes noted
[2025-03-24] MEDS: TRANEXAMIC ACID 100 MG/ML INJ 1000 MG IV (13:35)
--- NOTE | 2025-03-24 14:13 | P.NB_ITS ---
Nerve Block Nerve Block Time Seen by Provider: 11:30 Date Seen: 03/24/25 Type of block requested by surgeon for post-operative analgesia: supraclavicular Side: left Time out performed: Yes Verification of patient name: Yes Verification of date of : Yes Site marking: site marked Name of person performing procedure: Deyvi Continuous monitoring Was continuous monitoring of O2 sat, B/P, cardiac cath tech, recorded every 15 minutes?: Yes Procedure Checklist: sterile prep, needles and gloves Ultrasound guided. Images saved: Yes Medications given in 5ml increments after negative aspiration: Ropivicaine %: 0.5 mL: 20 Needle gauge: 22 Precedex (mcg): 25 Patient tolerated procedure well: Yes Block Charges Block Charge (with Pro Fee): Brachial Plexus Use of Ultrasound Machine for Block: Yes- US Guidance/pain block
--- NOTE | 2025-03-24 15:32 | CRLHL7_ITS ---
For Patients: As a result of the Cures Act, medical imaging exams and procedure reports are released immediately into your electronic medical record. You may view this report before your referring provider. If you have questions, please contact your health care provider. Indication: Postop Technique: Three views left shoulder Findings/Impression: Hardware from a left shoulder arthroplasty is in satisfactory position. Bone alignment is normal. No sign of acute fracture. Postop changes are within normal limits. Dictated by Conner Estrella MD @ 03/25/2025 8:32:32 AM (Electronically Signed)
--- NOTE | 2025-03-24 15:32 | P.ORPRC_ITS ---
Procedure Note Date of procedure: 03/24/25 Procedure: PREOPERATIVE DIAGNOSIS: 1. Left shoulder osteoarthrosis, primary, severe with poor rotator quality/integrity 2. Left ulnar nerve neuropathy at the cubital tunnel POSTOPERATIVE DIAGNOSIS: 1. Left shoulder osteoarthrosis,[ primary, severe with poor cuff tissue quality 2. Left ulnar nerve neuropathy at the cubital tunnel 3. Left long head of the biceps tendinopathy and tenosynovitis PROCEDURE: 1. Left reverse shoulder arthroplasty. 2. Left long head of biceps open tenodesis 3. Left ulnar nerve decompression at the cubital tunnel with anterior subcutaneous transposition. SURGEON: Yuri Mendoza MD. PAYROLL ACCOUNTANT: Chris KNOX - Of note, a skilled assistant professor of music was critical for this case to aid in patient positioning, tissue retraction, limb manipulation/positioning, retraction for glenoid exposure, which was chal lenging, awareness and protection of critical structures, and closure. ANESTHESIA: General plus supraclavicular block EBL: 100 ml IMPLANTS: DJ0 surgical Altivate humeral stem size 10 small shell, short with P2 porous coating vitamin E neutral poly small socket insert RSP glenoid base plate P2 porous coating with 4 perimeter locking screws 32 neutral glenosphere with retaining screw COMPLICATIONS: None evident INDICATIONS: The patient is a pleasant 69-year-old female who has experienced severe left shoulder pain and difficulty with use. Workup included imaging which revealed severe osteoarthrosis along with concern for rotator cuff quality. Physical exam was consistent with associated pain. Given the deformity, the dysfunction, and the pain, and failure of nonoperative managem ent, recommendation was made for surgery. In addition, her left ulnar nerve neuropathy at the cubital tunnel has been progressive he had worsening over many months. Given the failure of nonoperative management, surgery was indicated for ulnar nerve decompression and possible subcutaneous transposition depending on nerve stability post decompression. DESCRIPTION OF PROCEDURE: Following a thorough discussion of risks, benefits, and alternatives, consent was obtained and the left shoulder was marked. The patient was brought to the operating room and placed supine on the operating table. Induction of anesthesia was undertaken. 1 g IV Ancef and 1 g tranexamic acid was administered within 1 hr of incision preoperatively. Appropriate time-out was performed identifying proper patient, site, and procedure. The operative extremity was prepped and draped in the appropriate sterile fashion using ChloraPrep after the patient was positioned in the lazy beach chair position with head in neutral alignment and all bony prominences well padded. A longitudinal incision was made for deltopectoral approach. Deltoid was retracted laterally. Cephalic vein was identified and retracted laterally as well. Vein was spared/protected throughout the case. The clavipectoral fascia was identified and divided longitudinally staying lateral to the conjoined tendon / coracoid. The conjoined tendon was protected with a blunt Hohmann. The long head of the biceps tendon was identified and the bicipital sheath released. The upper 1/4 of the pectoralis major was also released from its insertion. The long head of the biceps was tenodesed to the pectoralis major tendon. The remaining proximal tendon tissue was excised. The rotator cuff was inspected and found to have good integrity with the subscapularis but fair integrity with a supraspinatus], and a decision for a reverse shoulder arthroplasty was confirmed. The long head of biceps, of note, was significant flattened, thickened, with abundant tenosynovitis. A subscapularis cuff of tissue was left via tenotomy for later repair with the remaining subscapularis released in a subperiosteal fashion with the Bovie. This was tagged for later repair. The 3 sisters were cauterized. The upper subscapularis was released from the capsule with a curved Jarvis scissors towards the glenoid. The inferior subscapularis was divided from the capsular tissue on its caudal surface with particular caution for the axillary nerve. This was palpated anterior to the subscapularis both prior to and near the finish of the case. Inferior humeral head osteophytes were excised with caution taken throughout the case with regards to the axillary nerve. The humerus was dislocated, and humeral head cut completed. Then a protector plate was applied. We turned our attention to the glenoid. The humerus was retracted posteriorly. The subscap was protected anteriorly and the labrum/long head biceps origin was excised circumferentially. The capsule was released along the anterior and inferior portions of the glenoid cautiously with a Oneill elevator being careful not to penetrate deep. The glenoid had appropriate exposure, and was prepared with the cannulated system with a target of approximately 5-10? of inferior tilt and neutral anteversion. Utilizing the match Point 3D printed guide, the guide pin was placed. The 3D printed jig rem haleigh and after placing the guide pin, the tap was placed followed by the glenoid reaming. The real base plate was opened, and inserted, and excellent compression/purchase was achieved with the central screw. Peripheral screws were then drilled, measured, and placed. The glenosphere was then placed consistent with the preoperative plan utilizing the above noted glenosphere. After securing the glenosphere with the locking, torque limited screw, attention was turned back to the humerus. A canal finder was placed followed by various reamers by hand. The real humeral stem was then opened and inserted with excellent metaphyseal fit and stability. Trial poly was placed and the shoulder reduced. Excellent reduction and stability achieved with appropriate tension on the conjoined tendon. At this stage, trial implants were removed, and the real implants inserted and the shoulder reduced. A 3 minute Betadine soak was performed followed by a thorough irrigation with normal saline. Subscapularis was repaired with #1 PDS to the cuff of tissue on the lesser tuberosity. Excellent reapproximation of tissue achieved. Hemostasis was found to be appropriate. The deltopectoral interval was reapproximated with 0 Vicryl, subcutaneous and subcuticular closure was then performed with number 2-0 Stratafix and 4-0 Monocryl, respectively. We then turned our attention to the left ulnar nerve decompression/subcutaneous transposition: A longitudinal incision was made along the medial elbow extending proximal and distal approximately 5 cm in either direction. Sharp incision through the skin and blunt dissection through the subcutaneous tissue allowed protection of crossing neurologic structures. Proximally, blunt dissection continued to the depth of the ulnar nerve itself. The nerve was released from its surrounding tissues beginning proximally and moving toward the distal extent. This included ligament of [place], medial intermuscular septum, cubital tunnel, FCU fascial sling, etc. The vena comitantes was maintained with the nerve and caution was taken particularly around the motor branches of the ulnar nerve. After releasing the nerve, the elbow was placed through range of motion and found that the nerve was not stable. Therefore, the nerve was circumferentially released/mobilized and after ensuring that it could be transposed anteriorly without undue tension, a fascial sling was created from the flexor/pronator mass off the medial humeral epicondyle. The nerve was then transposed anteriorly, the fascial sling loosely sutured to the subcutaneous layer directly overlying it, while a [place] could easily be positioned alongside the nerve deep to the fascial sling ensuring that there is not excessive tension on the nerve. The tourniquet was deflated, hemostasis achieved, and a thorough irrigation performed. Closure was performed with 2-O Stratafix and 4-0 Monocryl for the subcutaneous and subcuticular layers, respectively. Dressings were applied including the sling. The patient was awoken from anesthesia and transferred to the Post-Anesthesia Care Unit in stable condition. *Again, a skilled assistant professor of music was critical for this case to aid in patient positioning, tissue retraction, limb manipulation/positioning, retraction for glenoid exposure, which was challenging, awareness and protection of critical structures, and closure. PLAN: 1. Sling at all times for the operative upper extremity. 2. AROM of elbow, forearm, wrist, and digits as tolerated. 3. PT/OT consults for education and assistance. 4. Social consult for discharge planning. 5. 23 hr perioperative antibiotics. 6. Early ambulation, and SCDs for DVT prophylaxis. 7. Admit to the hospital for the above 8. Analgesics p.r.n.
--- NOTE | 2025-03-24 15:37 | P.ANES_ITS ---
Anesthesia Charges Start Date/Time Anesthesia Start Date: 03/24/25 Anesthesia Start Time: 13:13 Stop Date/Time Anesthesia Stop Date: 03/24/25 Anesthesia Stop Time: 16:18 Summary Extremes of Age - Over 70 or under 1: MDA Coding CPT Codes CPT Codes: ANESTH SHOULDER REPLACEMENT - 89787 ([id number]) P3 - PATIENT W/SEVERE SYS DISEASE, QK - AIRPORT MANAGER 2-4 CNCRNT ANES PROC, QX - PHYSICAL THERAPY PROFESSOR SVC W/ MD MED DIRECTION Additional Codes: Summary - Extremes of Age - Over 70 or under 1: MDA ([id number])
--- NOTE | 2025-03-24 15:37 | W.ANESCHARGE ---
Anesthesia Charges Start Date/Time Anesthesia Start Date: 03/24/25 Anesthesia Start Time: 13:13 Stop Date/Time Anesthesia Stop Date: 03/24/25 Anesthesia Stop Time: 16:18 Summary Extremes of Age - Over 70 or under 1: MDA Coding CPT Codes CPT Codes: ANESTH SHOULDER REPLACEMENT - 92361 ([id number]) P3 - PATIENT W/SEVERE SYS DISEASE, QK - RN PICU 2-4 CNCRNT ANES PROC, QX - RADIO MAINTAINER SVC W/ MD MED DIRECTION Additional Codes: Summary - Extremes of Age - Over 70 or under 1: MDA ([id number])
--- NOTE | 2025-03-24 15:44 | PM.IMCN1 ---
Date of Consult Patient: [facility] Patient Consult date: 03/24/25 Requesting Physician: Orthopedics Primary Care Provider: Lino Scales MD Consult Narrative Reason for consult: Medical management Narrative: Ree Jiang is a 69 year old female past medical history significant for COPD, JONE on CPAP, current smoker, alcohol use, hepatic steatosis, depression hypertension, hyperlipidemia, IBS, tremor is POD#0 s/p Left reverse shoulder arthroplasty, Left long head of biceps open tenodesis, Left ulnar nerve decompression at the cubital tunnel with anterior subcutaneous transposition with Dr. Mendoza. Postoperatively, patient reports feeling well. Pain is currently adequately managed. Tolerating orals without nausea vomiting. There have been no perioperative complications or nursing concerns reported. Estimated total blood loss documented as 100 ml. Updated and reviewed the active medical problems, past medical history, past surgical history, social history, allergies and medications in our electronic EMR. Review of Systems Narrative: REVIEW OF SYSTEMS: Complete review of systems performed and negative unless otherwise stated in HPI or below. PFSH [facility] Medical History (Updated 03/24/25 @ 18:30 by Deja Alexandra PA-C) Osteoarthritis of left knee ?M17.12 - Unilateral primary osteoarthritis, left knee (ICD-10) Depression ?F32.A - Depression, unspecified (ICD-10) Vaccination declined ?Z28.21 - Immunization not carried out because of patient refusal (ICD-10) Complication of ostomy Abdominal wall hernia ?K43.9 - Ventral hernia without obstruction or gangrene (ICD-10) Cervical radiculopathy ?M54.12 - Radiculopathy, cervical region (ICD-10) Gastritis ?K29.70 - Gastritis, unspecified, without bleeding (ICD-10) Right shoulder pain ?M25.511 - Pain in right shoulder (ICD-10) Osteoarthritis of right shoulder ?M19.011 - Primary osteoarthritis, right shoulder (ICD-10) Arthritis of right acromioclavicular joint ?M19.011 - Primary osteoarthritis, right shoulder (ICD-10) Tendinosis of right rotator cuff ?M67.813 - Other specified disorders of tendon, right shoulder (ICD-10) Hypertension ?I10 - Essential (primary) hypertension (ICD-10) Peripheral neuropathy ?G62.9 - Polyneuropathy, unspecified (ICD-10) Excessive drinking of alcohol ?F10.10 - Alcohol abuse, uncomplicated (ICD-10) Tobacco dependence syndrome ?F17.200 - Nicotine dependence, unspecified, uncomplicated (ICD-10) Osteopenia (06/2021) ?M85.80 - Other specified disorders of bone density and structure, unspecified site (ICD-10) Obstructive sleep apnea syndrome (2016) ?G47.33 - Obstructive sleep apnea (adult) (pediatric) (ICD-10) Malignant neoplasm of right breast (04/07/15) ?C50.911 - Malignant neoplasm of unspecified site of right female breast (ICD-10) Ileostomy present (08/2021) ?Z93.2 - Ileostomy status (ICD-10) Hypokalemia ?E87.6 - Hypokalemia (ICD-10) History of open sigmoidectomy (08/2021) ?Z98.890 - Other specified postprocedural states (ICD-10) ?Z90.49 - Acquired absence of other specified parts of digestive tract (ICD-10) Elevated liver function tests ?R79.89 - Other specified abnormal findings of blood chemistry (ICD-10) Diverticulitis of intestine with perforation and abscess ?K57.80 - Diverticulitis of intestine, part unspecified, with perforation and abscess without bleeding (ICD-10) Chronic obstructive pulmonary disease ?J44.9 - Chronic obstructive pulmonary disease, unspecified (ICD-10) Alcohol dependence ?F10.20 - Alcohol dependence, uncomplicated (ICD-10) Acute respiratory failure with hypoxia ?J96.01 - Acute respiratory failure with hypoxia (ICD-10) Surgical History (Updated 03/24/25 @ 15:51 by Sully Bautista ~ DIRECTOR FINANCIAL ANALYSIS, DIRECTOR FINANCIAL ANALYSIS) Status post reverse arthroplasty of left shoulder (03/24/25) ?Z96.612 - Presence of left artificial shoulder joint (ICD-10) S/P small bowel resection ?Z90.49 - Acquired absence of other specified parts of digestive tract (ICD-10) History of partial knee replacement ?Z96.659 - Presence of unspecified artificial knee joint (ICD-10) Status post reverse arthroplasty of right shoulder (09/24/24) ?Z96.611 - Presence of right artificial shoulder joint (ICD-10) Status post right partial knee replacement (~2010) ?Z96.651 - Presence of right artificial knee joint (ICD-10) S/P trigger finger release (08/22/22) ?Z98.890 - Other specified postprocedural states (ICD-10) S/P left knee arthroscopy (01/11/05) ?Z98.890 - Other specified postprocedural states (ICD-10) S/P right knee arthroscopy (11/14/06) ?Z98.890 - Other specified postprocedural states (ICD-10) H/O ileostomy ?Z98.890 - Other specified postprocedural states (ICD-10) Status post surgery involving ear ?Z98.890 - Other specified postprocedural states (ICD-10) Status post laparoscopic cholecystectomy (2015) ?Z90.49 - Acquired absence of other specified parts of digestive tract (ICD-10) History of hysterectomy (1990) ?Z90.710 - Acquired absence of both cervix and uterus (ICD-10) History of colonoscopy (08/13/20) ?Z98.890 - Other specified postprocedural states (ICD-10) History of bilateral mastectomy (06/2015) ?Z90.13 - Acquired absence of bilateral breasts and nipples (ICD-10) History of arthroscopy of right knee (08/07/07) ?Z98.890 - Other specified postprocedural states (ICD-10) History of arthroscopy of left knee (10/12/17) ?Z98.890 - Other specified postprocedural states (ICD-10) History of appendectomy (08/11/21) ?Z90.49 - Acquired absence of other specified parts of digestive tract (ICD-10) Family History Mother Alzheimers disease Heart disease Father Stroke Heart disease Unknown Crohn's disease Other Cervical cancer Social History Narrative: excessive consumption of ethanol- 6 pack/day exercises 5-6 times per week- garden, walks dog , 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[employer]), 3 kids tobacco abuse- 1 pack/day, 30 years What is your current living situation?: I presently have a place to live Problems where you live: no known problems Problems where you live details: none In the past 12 months, utilities in danger of being shut off: no In past 12 months, lack of transportation kept you from medical appts, meetings, work, or getting things needed for daily living: no In the past 12 mos, have been you worried that your food would run out before you had money to buy more?: never true In the past 12 mos, the food you bought just didn't last and you didn't have money to buy more?: never true Highest level of school completed/degree received: high school graduate Smoking Status: Current every day smoker What tobacco products do you use: cigarettes Smoking packs per day: 1 Smoking cigarettes per day: 20.0 Years smoked: 20 Smoking pack-years: 20.00 Second hand tobacco smoke exposure: Yes How often do you have a drink containing alcohol: 4 or more times a week Alcohol type: beer How many standard drinks containing alcohol do you have on a typical day: 3 or 4 How often do you have six or more drinks on one occasion: Monthly AUDIT-C Alcohol total score: 7 Non-prescribed substance use: denies use Caffeine: Yes (2 cups of coffee a day) How often does anyone, including family, friends and others, physically hurt you: never How often does anyone, including family, friends and others, insult or talk down to you: never How often does anyone, including family, friends and others, threaten you with harm: never How often does anyone, including family, friends and others, scream or curse at you: never service: No Meds Home Medications and Allergies Home Medications ?Medication ?Instructions ?Recorded ?Confirmed ?Type acetaminophen 500 mg tablet 500 - 1,000 mg PO Q6H PRN 08/29/23 03/24/25 History albuterol sulfate 90 mcg/actuation 2 puff inhalation Q4-6H PRN 03/13/24 03/24/25 Rx aerosol inhaler shortness of breath or wheezing #8.5 grams budesonide-formoterol HFA 160 2 puff inhalation BID #30.6 grams 03/13/24 03/24/25 Rx mcg-4.5 mcg/actuation aerosol inhaler (Symbicort) gabapentin 300 mg capsule 300 mg PO TID #270 caps 03/13/24 03/24/25 Rx mecobalamin (vitamin B12) 1,000 1,000 mcg PO DAILY 12/12/24 03/24/25 History mcg chewable tablet amlodipine 10 mg tablet 10 mg PO HS #90 tabs 01/28/25 03/24/25 Rx atorvastatin 10 mg tablet 10 mg PO HS 03/24/25 03/24/25 History citalopram 10 mg tablet 10 mg PO HS 03/24/25 03/24/25 History omeprazole 20 mg tablet,delayed 20 mg PO DAILY 03/24/25 03/24/25 History release tiotropium bromide 18 mcg capsule 1 cap inhalation DAILY 03/24/25 03/24/25 History with inhalation device (Spiriva with HandiHaler) Allergies Allergy/AdvReac Type Severity Reaction Status Date / Time oxycodone Allergy Severe Anaphylaxis, Verified 03/24/25 08:56 hives, throat swelling amoxicillin Allergy Intermediate N&V Verified 03/24/25 08:56 hydrocodone Allergy Mild Rash Verified 03/24/25 08:56 varenicline Allergy Mild aggression Verified 03/24/25 08:56 clavulanic acid Allergy Unknown Nausea Verified 03/24/25 08:56 tramadol AdvReac severe Verified 03/24/25 08:56 itching Exam Narrative: Exam Narrative: PHYSICAL EXAM General: Pleasant, conversant, NAD HEENT: Normocephalic, atraumatic, sclera white, EOMI, oral mucosa moist Cardiovascular: RRR, S1S2. No pitting edema Pulmonary: CTA bilaterally without rhonchi, rales, expiratory wheezes. No dyspnea Neurological: Alert, answering questions appropriately, cranial nerves intact, no focal findings Extremities: No gross joint deformity or swelling. Postoperative dressing and immobilizer in place, dry. Neurovascularly intact Skin: Warm, dry. Const: Vital Signs, click to edit/add: Vital Signs - 24 hr 03/24/25 09:34 03/24/25 11:35 03/24/25 11:40 Temperature 98.8 F Pulse Rate 80 81 73 Respiratory Rate 20 20 20 Blood Pressure 158/98 H 185/125 H 142/100 H Pulse Oximetry 96 95 96 Oxygen Delivery Me thod Room Air Nasal Cannula Nasal Cannula Oxygen Flow Rate 3 3 03/24/25 11:45 03/24/25 11:50 Temperature Pulse Rate 65 66 Respiratory Rate 20 20 Blood Pressure 144/95 H 139/88 Pulse Oximetry 98 98 Oxygen Delivery Me thod Nasal Cannula Room Air Oxygen Flow Rate 3 Assessment and Plan Assessment and plan (1) Osteoarthritis of left shoulder: Problem comment: -POD#0 s/p Left reverse shoulder arthroplasty, Left long head of biceps open tenodesis, Left ulnar nerve decompression at the cubital tunnel with anterior subcutaneous transposition with Dr. Mendoza -perioperative management including pain management and anticoagulation per Orthopedic surgery -encourage postoperative pulmonary hygiene -PT OT consults -plan to discharge home with spouse tomorrow Status: Acute (2) Chronic obstructive pulmonary disease: Problem comment: -Encourage pulmonary hygiene postoperatively, spot check oximetry Status: Acute (3) Obstructive sleep apnea syndrome: Problem comment: -Has not used a CPAP for years Status: Acute (4) Tobacco use: Problem comment: -Chronic. Nicotine patch prn Status: Acute (5) Excessive drinking of alcohol: Problem comment: -Chronic. Denies history of withdrawals, seizures Status: Acute (6) Hypertension: Problem comment: -Resume amlodipine tomorrow if appropriate, monitoring pressures postoperatively Status: Acute (7) Hyperlipidemia: Problem comment: -Resume statin tomorrow Status: Acute Plan May resume home medications upon discharge. Consider antihypertensives in the morning if necessary. Hospital medicine team will sign off. Please contact our service with any questions or concerns. Total Time Spent Total Time Spent: Today I spent 55 minutes seeing the patient, reviewing Expanse and EPIC notes/diagnostics, discussing the care plan with our care time that includes social work, PT/OT, pharmacy, RT, intermediate and documenting my impressions and plan in the medical record.
--- NOTE | 2025-03-24 16:23 | P.ANES_ITS ---
Anesthesia Charges Start Date/Time Anesthesia Start Date: 03/24/25 Anesthesia Start Time: 13:13 Stop Date/Time Anesthesia Stop Date: 03/24/25 Anesthesia Stop Time: 16:18 Summary Extremes of Age - Over 70 or under 1: PROCESS MAINTENANCE TECHNICIAN Coding CPT Codes CPT Codes: ANESTH SHOULDER REPLACEMENT - 79970 ([id number]) P3 - PATIENT W/SEVERE SYS DISEASE, QK - WAITER WAITRESS 2-4 CNCRNT ANES PROC, P6 - BRAIN- PT ORGANS REMOVED Additional Codes: Summary - Extremes of Age - Over 70 or under 1: PROCESS MAINTENANCE TECHNICIAN ([id number])
--- NOTE | 2025-03-24 16:23 | W.ANESCHARGE ---
Anesthesia Charges Start Date/Time Anesthesia Start Date: 03/24/25 Anesthesia Start Time: 13:13 Stop Date/Time Anesthesia Stop Date: 03/24/25 Anesthesia Stop Time: 16:18 Summary Extremes of Age - Over 70 or under 1: AIR FORCE SENIOR OFFICER Coding CPT Codes CPT Codes: ANESTH SHOULDER REPLACEMENT - 28322 ([id number]) P3 - PATIENT W/SEVERE SYS DISEASE, QK - CAST IRON DIPPER 2-4 CNCRNT ANES PROC, P6 - BRAIN- PT ORGANS REMOVED Additional Codes: Summary - Extremes of Age - Over 70 or under 1: AIR FORCE SENIOR OFFICER ([id number])
[2025-03-24] MEDS: SENNOSIDES 1 TAB TABLET 2 TAB PO (20:32)
[2025-03-24] MEDS: CEFAZOLIN 1 GM in 0.9 % SODIUM CHLORIDE Mini-bag 100 ML IVPB (21:02)
[2025-03-25] MEDS: ACETAMINOPHEN 500 MG TABLET 1000 MG PO ×2 (01:08→06:31)
[2025-03-25 04:44] VITALS: BP 147/94; PULSE 80; RESP 18; TEMP 36.7; O2SAT 98
[2025-03-25] MEDS: CEFAZOLIN 1 GM in 0.9 % SODIUM CHLORIDE Mini-bag 100 ML IVPB (05:03)
--- NOTE | 2025-03-25 05:33 | PC.NURSE ---
end of shift: Pt AOX4. VSS. L shoulder dressing CDI. Arm sling in place. Active ice applied. Pt reports pain increase, pain meds given; see EMAR. Pt walks SBA/IND to and from BR. Saline locked R forearm.
[2025-03-25 07:00] VITALS: BP 137/94; PULSE 78; RESP 16; TEMP 36.7; O2SAT 94
[2025-03-25] MEDS: SENNOSIDES 1 TAB TABLET 2 TAB PO (08:38)
--- NOTE | 2025-03-25 10:47 | PC.NURSE ---
Discharge: VSS, RA tolerating a reg diet. Patient using active ice to op site. CMS intact, sling in place. PRN dilauded admin prior to therapy, denies N/V/SOB. patient reports passing gas. IV removed tip intact. Discharged today at 1041 to home accompanied by spouse. Discharge instructions given and signed patient verbalized understanding, belongings sheet signed.
--- NOTE | 2025-03-25 15:48 | P.ORPN_ITS ---
Subjective Subjective Date Seen: 03/25/25 Principal diagnosis: POD1 left RTSA, long head biceps tenodesis, cubital tunnel release Interval history: Patient reports doing okay. Reports left shoulder pain. No acute events over night. Pain managed with scheduled and PRN medications, ice. DVT prophylaxis: SCDs, walking. Denies fevers, chills, aches, N/V, CP, SOB/REYNAGA, or lightheadedness. Ortho Exam Narrative Exam Narrative: -Patient appears comfortable in recliner; no apparent acute distress -Alert and oriented times 3 -Operative shoulder swollen; soft, supple tissues; no obvious erythema. Ecchymosis minimal. Warmth appropriate -Surgical dressing clean, dry, intact; no obvious drainage, no erythematous streaking peripheral to the bandage -Bilateral calves soft and supple; no significant swelling, edema, tenderness, erythema, discoloration, warmth, or palpable cords -left elbow surgical dressing intact, no drainage. Mild swelling over the left elbow -2+ radial pulse, intact dermatomes and myotomes distally (5/5 strength) Const Vital Signs, click to edit/add: Vital Signs - 24 hr 03/24/25 16:15 03/24/25 16:20 03/24/25 16:25 Temperature 97.8 F Pulse Rate 81 78 81 Pulse Rate [Right Pulse Oximeter] Respiratory Rate 14 14 14 Blood Pressure 142/83 H 135/78 134/78 Blood Pressure [Right Arm] Pulse Oximetry 90 96 97 Oxygen Delivery Method Room Air Nasal Cannula Nasal Cannula Oxygen Flow Rate 2 2 03/24/25 16:30 03/24/25 16:35 03/24/25 16:40 Temperature Pulse Rate 79 79 77 Pulse Rate [Right Pulse Oximeter] Respiratory Rate 14 14 14 Blood Pressure 134/79 142/78 H 150/83 H Blood Pressure [Right Arm] Pulse Oximetry 96 97 97 Oxygen Delivery Method Nasal Cannula Nasal Cannula Nasal Cannula Oxygen Flow Rate 2 2 2 03/24/25 16:45 03/24/25 17:00 03/24/25 17:00 Temperature 97.5 F L 98.2 F 98.2 F Pulse Rate 78 79 Pulse Rate [Right Pulse Oximeter] 79 Respiratory Rate 14 16 16 Blood Pressure 146/81 H 110/77 Blood Pressure [Right Arm] 110/77 Pulse Oximetry 98 92 92 Oxygen Delivery Method Nasal Cannula Room Air Room Air Oxygen Flow Rate 2 03/24/25 17:15 03/24/25 17:30 03/24/25 17:45 Temperature Pulse Rate 77 78 87 Pulse Rate [Right Pulse Oximeter] Respiratory Rate 18 18 18 Blood Pressure 103/65 123/73 118/86 Blood Pressure [Right Arm] Pulse Oximetry 96 98 93 Oxygen Delivery Method Nasal Cannula Nasal Cannula Room Air Oxygen Flow Rate 1 1 03/24/25 18:00 03/24/25 19:00 03/24/25 19:41 Temperature 98.3 F Pulse Rate 84 Pulse Rate [Right Pulse Oximeter] 92 84 Respiratory Rate 16 16 Blood Pressure 127/78 Blood Pressure [Right Arm] 119/78 122/79 Pulse Oximetry 93 96 Oxygen Delivery Method Room Air Room Air Oxygen Flow Rate 03/24/25 20:00 03/24/25 21:00 03/24/25 21:57 Temperature 98.2 F 98.1 F 98.4 F Pulse Rate Pulse Rate [Right Pulse Oximeter] 80 89 85 Respiratory Rate 16 16 16 Blood Pressure Blood Pressure [Right Arm] 129/79 138/83 134/82 Pulse Oximetry 96 92 94 Oxygen Delivery Method Room Air Room Air Room Air Oxygen Flow Rate 03/24/25 23:00 03/24/25 23:00 03/24/25 23:00 Temperature 98.3 F Pulse Rate Pulse Rate [Right Pulse Oximeter] 85 85 Respiratory Rate 16 16 16 Blood Pressure Blood Pressure [Right Arm] 138/90 H Pulse Oximetry 92 92 Oxygen Delivery Method Room Air Room Air Oxygen Flow Rate 03/25/25 04:44 03/25/25 07:00 03/25/25 07:00 Temperature 98.1 F Pulse Rate Pulse Rate [Right Pulse Oximeter] 80 78 Respiratory Rate 18 16 16 Blood Pressure Blood Pressure [Right Arm] 147/94 H Pulse Oximetry 98 94 Oxygen Delivery Method Room Air Room Air Oxygen Flow Rate 03/25/25 07:00 Temperature 98.1 F Pulse Rate Pulse Rate [Right Pulse Oximeter] 78 Respiratory Rate 16 Blood Pressure Blood Pressure [Right Arm] 137/94 H Pulse Oximetry 94 Oxygen Delivery Method Room Air Oxygen Flow Rate Assessment and Plan Assessment and plan (1) Osteoarthritis of left shoulder: Problem details: -POD#1 s/p Left reverse shoulder arthroplasty, Left long head of biceps open tenodesis, Left ulnar nerve decompression at the cubital tunnel with anterior s ubcutaneous transposition with Dr. Mendoza Status: Acute (2) Chronic obstructive pulmonary disease: Problem details: -Encourage pulmonary hygiene postoperatively, spot check oximetry Status: Acute (3) Obstructive sleep apnea syndrome: Problem details: -Has not used a CPAP for years Status: Acute (4) Tobacco use: Problem details: -Chronic. Nicotine patch prn Status: Acute (5) Excessive drinking of alcohol: Problem details: -Chronic. Denies history of withdrawals, seizures Status: Acute (6) Hypertension: Problem details: -Resume amlodipine tomorrow if appropriate, monitoring pressures postoperatively Status: Acute (7) Hyperlipidemia: Problem details: -Resume statin tomorrow Status: Acute Plan - Complete 23 hour perioperative antibiotics. - PT/OT consult for education and assistance. - Social work consult for discharge planning - Prescribed analgesics as needed - DVT prophylaxis: Walking, and SCDs - Anticipation is for discharge to home with family/friends today 03/25/2025 if the patient remains medically stable, pain is controlled, and they are safe with mobilization.
== END 2025-03-25 10:41 | disposition home or self-care (01) ==
LOC: OR 08:28 → MEDSURG 08:29
PROVIDERS: PCP Family Medicine; Visit Provider Orthopaedic Surgery Sports Medicine
PROC: 0RRJ0JZ Replacement of Right Shoulder Joint with Synthetic Substitute, Open Approach (ICD-10-PCS; CPT 23472; principal; 2025-03-24 12:15)
PROC: (CPT 23472; 2025-03-24 12:15)
DX: M19.012 Primary osteoarthritis, left shoulder (principal); M75.22 Bicipital tendinitis, left shoulder; G56.22 Lesion of ulnar nerve, left upper limb; G89.18 Other acute postprocedural pain; J44.9 Chronic obstructive pulmonary disease, unspecified; G47.33 Obstructive sleep apnea (adult) (pediatric); Z99.89 Dependence on other enabling machines and devices; I10 Essential (primary) hypertension; F17.210 Nicotine dependence, cigarettes, uncomplicated; F10.20 Alcohol dependence, uncomplicated; K70.0 Alcoholic fatty liver; E78.5 Hyperlipidemia, unspecified
CPT/HCPCS: 23472; 23430; 64718; 01638; 64415; 73030; 76942; 97110; 97165; 97535; 99100; A9270; C1713; C1776; J0330; J0690; J1100; J2250; J2405; J2704; J2795; J3010; J3490; J7120

== ENCOUNTER 2025-04-17 09:05 | Outpatient (CLI) | payer MEDICARE, SELFPAY | END 2025-04-17 09:06 | disposition home or self-care (01) | LOC: NFLDREF 23:26 | PROVIDERS: PCP Family Medicine; Referring Provider Family Medicine; Visit Provider Family Medicine | DX: E78.5 Hyperlipidemia, unspecified (principal); R53.83 Other fatigue; G62.9 Polyneuropathy, unspecified; Z13.6 Encounter for screening for cardiovascular disorders | CPT/HCPCS: 80053; 80061; 82607; 82746; 84443 ==

== ENCOUNTER 2025-05-15 10:06 | Outpatient (CLI) | payer MEDICARE, SELFPAY | END 2025-05-15 10:07 | disposition home or self-care (01) | LOC: NFLDREF 10:08 | PROVIDERS: PCP Family Medicine; Visit Provider Family Medicine | DX: Z13.1 Encounter for screening for diabetes mellitus (principal) | CPT/HCPCS: 82947 ==